=== PATIENT | female | born 1960 | race Caucasian/White ===

== ENCOUNTER 2017-10-07 07:39 | Inpatient (IN) | payer OTHER ==
[2017-10-07] VITALS (17 sets, daily range): BP systolic 117–215; BP diastolic 60–124; PULSE 87–123; RESP 13–33; TEMP 97.8–99.2; O2SAT 92–100
[~2017-10-07] VITALS: Ht 158.8 cm; Wt 61.8 kg
[2017-10-07] MEDS ORDERED: SODIUM CHLOR 0.9% 1000 ML INJ 1,000 ML IV ONE (07:45)
[2017-10-07] MEDS ORDERED: niCARdipine INJ 25 MG in SODIUM CHLOR 0.9% 250 ML INJ 240 ML IV PRN (08:00)
--- NOTE | 2017-10-07 08:02 | RADRPT ---
EXAM DATE/TIME: 10/07/2017 07:51 [facility] COMPARISON: No previous studies available for comparison. INDICATIONS : Stroke alert. Left sided weakness, left sided facial droop. RADIATION DOSE: 29.31 CTDIvol (mGy) This report was called by Dr. Mckinney to Dr. Elliott at 0756 MEDICAL HISTORY : Non-responsive. SURGICAL HISTORY : Non-responsive. ENCOUNTER: Initial ACUITY: 1 day PAIN SCALE: 0/10 LOCATION: cranial TECHNIQUE: Multiple contiguous axial images were obtained of the head. Using automated exposure control and adj ustment of the mA and/or kV according to patient size, radiation dose was kept as low as reasonably a chievable to obtain optimal diagnostic quality images. DICOM format image data is available electro nically for review and comparison. FINDINGS: CEREBRUM: Examination is abnormal. There is a moderate sized right basal ganglia hemorrhage measuring 3.0 x 3.2 cm. There is mass effect on the right lateral ventricle without significant midline shift at this ti me. No intraventricular blood products. No extra-axial fluid collections are seen. POSTERIOR FOSSA: The cerebellum and brainstem are intact. The 4th ventricle is midline. The cerebellopontine angle i s unremarkable. EXTRACRANIAL: The visualized portion of the orbits is intact. SKULL: The calvaria is intact. No evidence of skull fracture. CONCLUSION: 1. Moderate-sized, approximately 3.0 x 3.2 cm, right basal ganglia hemorrhage with mass effect on the right lateral ventricle without herniation at this time. Tacos Bourgeois MD on October 07, 2017 at 7:56 Board Certified Radiologist. This report was verified electronically.
[2017-10-07 08:06] LABS: AUTOMATED NEUTROPHIL # 6.3 TH/MM3 (1.8-7.7); BASOPHIL % 0.5 % (0.0-2.0); EOSINOPHIL # 0.4 TH/MM3 (0-0.4); EOSINOPHIL % 3.8 % (0.0-4.0); HEMATOCRIT 43.5 % (35.0-46.0); HEMO FLAGS DIFF FINAL; I-STAT POTASSIUM 4.2 MMOL/L (3.5-4.9); I-STAT SODIUM 140 MMOL/L (138-146); LYMPH % 28.1 % (9.0-44.0); MEAN CELL VOLUME 89.7 FL (80.0-100.0); MEAN CORPUSCULAR HEMOGLOBIN 30.4 PG (27.0-34.0); MEAN CORPUSCULAR HGB CONC 33.8 % (32.0-36.0); MONO % 8.6 % (0.0-8.0); PLATELET COUNT 280 TH/MM3 (150-450); RED BLOOD COUNT 4.85 MIL/MM3 (4.00-5.30); RED CELL DISTRIBUTION WIDTH 13.9 % (11.6-17.2); WHITE BLOOD COUNT 10.7 TH/MM3 (4.0-11.0)
--- NOTE | 2017-10-07 08:12 | PD ---
HPI Chief Complaint: confusion Time Seen by Provider: 07:45 Travel History International Travel<30 days: No Contact w/Intl Traveler<30days: No History of Present Illness HPI So 57 year-old woman presents to the emergency department, apparently visiting her son upstairs in the hospital, with the abrupt onset of neurologic symptoms. Patient's unable to give much history. Bystanders reported abrupt onset of symptoms just prior to arrival in the emergency department. Patient displays left-sided hemiplegia with him a neglect, as well as shaking and twitching in her right side. She also complains of some headache. History Past Medical History Narrative Medical Frequent UTIs, on prophylactic Keflex Social History Tobacco Use: No Allergies-Medications (Allergen,Severity, Reaction): Coded Allergies: Unable to Assess (Verified Allergy, Unknown, 10/07/17) Review of Systems ROS Limitations: Clinical Condition Physical Exam Narrative GENERAL: 57 year-old woman, appears uncomfortable, anxious. SKIN: Focused skin assessment warm/dry. HEAD: Atraumatic. Normocephalic. EYES: Pupils equal and round. No scleral icterus. No injection or drainage. ENT: No nasal bleeding or discharge. Mucous membranes pink and moist. NECK: Trachea midline. No JVD. CARDIOVASCULAR: Regular rate and rhythm. No murmur appreciated. RESPIRATORY: No accessory muscle use. Clear to auscultation. Breath sounds equal bilaterally. GASTROINTESTINAL: Abdomen soft, non-tender, nondistended. Hepatic and splenic margins not palpable. MUSCULOSKELETAL: No obvious deformities. No clubbing. No cyanosis. No edema. NEUROLOGICAL: Awake and alert. Obvious left-sided facial paralysis. Complete paralysis the left arm, marked paralysis of the left leg. Decreased sensation on the entire left side. Right sided gaze preference with left angie-neglect. PSYCHIATRIC: Anxious. Data Data Last Documented VS Vital Signs Date Time Temp Pulse Resp B/P (MAP) Pulse Ox O2 Delivery O2 Flow Rate FiO2 10/07/17 08:17 90 215/112 10/07/17 08:03 98 21 10/07/17 07:40 18 Room Air 10/07/17 07:40 98.6 Orders Orders Diet Npo (10/07/17 Breakfast) Activity Bed Rest (10/07/17 ) Electrocardiogram (10/07/17 ) I-Stat Creatinine (10/07/17 07:45) I-Stat Profile (10/07/17 07:45) Prothrombin Time / Inr (Pt) (10/07/17 07:45) Act Partial Throm Time (Ptt) (10/07/17 07:45) Complete Blood Count With Diff (10/07/17 07:45) Fibrinogen (10/07/17 07:45) Creatine Kinase (Cpk) (10/07/17 07:45) Troponin I (10/07/17 07:45) Ua Includes Microscopic (10/07/17 07:45) Drug Screen, Random Urine (10/07/17 07:45) Type And Screen (10/07/17 07:45) Ct Brain W/O Iv Contrast(Rout) (10/07/17 ) Beta Hcg (Quant/Titer) (10/07/17 07:45) Consult Neurology (10/07/17 ) Blood Glucose (10/07/17 07:45) Ecg Monitoring (10/07/17 07:45) Neuro Checks Q2HX12,Q4H (10/07/17 07:45) Nursing Bedside Swallow Assess .ONCE (10/07/17 07:45) Iv Access Insert/Monitor (10/07/17 07:45) NPO (10/07/17 07:45) Oximetry (10/07/17 07:45) Oxygen Administration (10/07/17 07:45) Sodium Chlor 0.9% 1000 Ml Inj (Ns 1000 M (10/07/17 07:45) Resp Oxygen Musa C Titrat 1-4 L (10/07/17 07:45) Cath For Specimen (10/07/17 07:45) Nicardipine Inj (Cardene Inj) (10/07/17 08:00) Acetaminophen 1000 Mg/100 Ml (Ofirmev 10 (10/07/17 08:15) Urinary Catheter Insert/Apply (10/07/17 08:06) (Hub Use Only)Inp Phy Cons/Ref (10/07/17 08:11) Ondansetron Inj (Zofran Inj) (10/07/17 08:15) Admit To Inpatient (10/07/17 ) Code Status (10/07/17 08:42) Vital Signs (Adult) EROS.Q1H (10/07/17 08:42) Activity Bed Rest (10/07/17 08:42) Elevate Head Of Bed (10/07/17 08:42) Ns + Kcl 20 Meq Inj (Ns + Kcl 20 Meq Inj (10/07/17 08:42) Sodium Chloride 0.9% Flush (Ns Flush) (10/07/17 08:45) Sodium Chloride 0.9% Flush (Ns Flush) (10/07/17 09:00) Pantoprazole Inj (Protonix Inj) (10/07/17 09:00) Albuterol-Ipratropium Neb (Duoneb Neb) (10/07/17 08:45) Complete Blood Count With Diff (10/08/17 04:00) Comprehensive Metabolic Panel (10/08/17 04:00) [employer] / Telemetry EROS.Q8H (10/07/17 08:42) Scd Bilateral/Knee High EROS.BID (10/07/17 08:42) Naif Bilateral/Knee High EROS.QSHIFT (10/07/17 10:00) ^ Initiate Protocol (10/07/17 08:42) Instruction (10/07/17 08:42) Notify Md To Reorder (10/07/17 08:45) Chlorhexidine 2% Cloth (Chlorhexidine 2% (10/08/17 04:00) Chlorhexidine 2% Cloth (Chlorhexidine 2% (10/07/17 08:45) Mrsa Pcr Surveillance (10/07/17 08:42) Docusate Sodium-Senna (Sangita-Colace) (10/07/17 09:00) Magnesium Hydroxide Liq (Milk Of Magnesi (10/07/17 08:45) Sennosides (Senokot) (10/07/17 08:45) Bisacodyl Supp (Dulcolax Supp) (10/07/17 08:45) Lactulose Liq (Lactulose Liq) (10/07/17 08:45) Inpatient Certification (10/07/17 ) Admit Order (Ed Use Only) (10/07/17 ) Consult Neurosurgery (10/07/17 ) Labs Laboratory Tests Test 10/07/17 07:45 10/07/17 08:20 White Blood Count 10.7 TH/MM3 Red Blood Count 4.85 MIL/MM3 Hemoglobin 14.7 GM/DL Bedside Hemoglobin 15.3 G/DL Hematocrit 43.5 % Bedside Hematocrit 45.0 % Mean Corpuscular Volume 89.7 FL Mean Corpuscular Hemoglobin 30.4 PG Mean Corpuscular Hemoglobin Concent 33.8 % Red Cell Distribution Width 13.9 % Platelet Count 280 TH/MM3 Mean Platelet Volume 9.3 FL Neutrophils (%) (Auto) 59.0 % Lymphocytes (%) (Auto) 28.1 % Monocytes (%) (Auto) 8.6 % Eosinophils (%) (Auto) 3.8 % Basophils (%) (Auto) 0.5 % Neutrophils # (Auto) 6.3 TH/MM3 Lymphocytes # (Auto) 3.0 TH/MM3 Monocytes # (Auto) 0.9 TH/MM3 Eosinophils # (Auto) 0.4 TH/MM3 Basophils # (Auto) 0.0 TH/MM3 CBC Comment DIFF FINAL Differential Comment Prothrombin Time 10.3 SEC Prothromb Time International Ratio 0.9 RATIO Activated Partial Thromboplast Time 22.8 SEC Fibrinogen 295 mg/dL Bedside Sodium 140 MMOL/L Bedside Potassium 4.2 MMOL/L Bedside Chloride 102 MMOL/L Bedside Blood Urea Nitrogen 19 MG/DL Bedside Creatinine 0.9 MG/DL Bedside Glucose 140 MG/DL Total Creatine Kinase 115 U/L Troponin I LESS THAN 0.02 NG/ML Human Chorionic Gonadotropin, Quant 2 MIU/ML Urine Color COLORLESS Urine Turbidity HAZY Urine pH 8.5 Urine Specific [place] 1.009 Urine Protein NEG mg/dL Urine Glucose (UA) NEG mg/dL Urine Ketones NEG mg/dL Urine Occult Blood NEG Urine Nitrite NEG Urine Bilirubin NEG Urine Urobilinogen LESS THAN 2.0 MG/DL Urine Leukocyte Esterase NEG Urine RBC 2 /hpf Urine WBC 1 /hpf Urine Squamous Epithelial Cells 1 /hpf Urine Amorphous Sediment OCC Urine Mucus FEW /lpf MDM Medical Decision Making Medical Screen Exam Complete: Yes Emergency Medical Condition: Yes Interpretation(s) Review of head CT images: Interpretable bleed in the right basal ganglia Personally interpreted the EKG: Normal sinus rhythm at a rate of 88, normal axis , normal intervals, no acute ischemia. Probable left ventricular hypertrophy. Point of care chemistries: Creatinine 0.9 Chemistries unremarkable Differential Diagnosis stroke, bleed, seizure, mass, other Narrative Course Medical decision-making 49-year-old presents emergency Department abrupt onset altered mental status of left-sided hemiplegia. Stroke alert was called. CT scan confirms intraparenchymal bleed. Blood pressure is elevated will start on nicardipine. Patient will be admitted to the ICU. I spoke with the patient's son, yo polk, in room 9 on the sixth floor. Reviewed the findings. NIH stroke scale 16@0750 Critical Care Narrative Aggregate critical care time was 35 minutes. Time to perform other separately billable procedures was not included in the critical care time. My time did not include minutes spent treating any other patients simultaneously or on activities that did not directly contribute to the patient's treatment. The services I provided to this patient were to treat and/or prevent clinically significant deterioration that could result in: Unrecognized Bleed, increased permanent disability, . I provided critical care services requiring my management, as noted below: Chart data review, documentation time, medication orders and management, vital sign assessments/reviewing monitor data, ordering and reviewing lab tests, ordering and interpreting/reviewing x-rays and diagnostic studies, care of the patient and discussion of the patient with the admitting physicians. Physician Communication Physician Communication Spoke with Dr. King, with neurology. Reviewed CT findings. He will consult on patient. Agrees of blood pressure management with nicardipine. Spoke with Dr. Fitzgerald, with neurosurgery, will consult on patient. Diagnosis Primary Impression: Intracerebral hemorrhage, nontraumatic Admitting Information Admitting Physician Requests: Admit Vic Sweeney MD Oct 07, 2017 08:12
[2017-10-07 08:15] LABS: APTT (PATIENT) 22.8 SEC (24.3-30.1); INTERNATIONAL NORMALIZED RATIO 0.9 RATIO; PROTHROMBIN TIME - PATIENT 10.3 SEC (9.8-11.6)
[2017-10-07] MEDS ORDERED: ACETAMINOPHEN 1000 MG/100 ML 100 ML IV ONE (08:15)
[2017-10-07] MEDS ORDERED: ONDANSETRON HCL 4 MG/2 ML VIAL IV PUSH ONE (08:15)
[2017-10-07 08:38] LABS: BETA HCG QUANT 2 MIU/ML (0-5); CREATINE KINASE 115 U/L (26-192)
[2017-10-07 08:43] LABS: BLOOD, URINE NEG (NEG); GLUCOSE,URINE NEG (NEG); KETONE, URINE NEG (NEG); MUCUS URINE FEW /lpf (OCC); NITRITE,URINE NEG (NEG); PH, URINE 8.5 (5.0-8.5); SQUAMOUS EPITHELIAL CELL URINE 1 /hpf (0-5); URINE COLOR COLORLESS (YELLW/STRAW)
[2017-10-07] MEDS ORDERED: MISCELLANEOUS NURSING INFORMATION XX SCH (08:45)
[2017-10-07] MEDS ORDERED: RESP: ALBUTEROL 2.5 MG/IPRATROPIUM 0.5 MG NEB (PRN) INH (08:45)
[2017-10-07] MEDS ORDERED: SODIUM CHLORIDE 0.9% FLUSH 10 ML FLUSH IV FLUSH PRN (08:45)
[2017-10-07] MEDS ORDERED: BISACODYL 10 MG SUPP RECTAL PRN (08:45)
[2017-10-07] MEDS ORDERED: CHLORHEXIDINE GLUCONATE 2 % 1 PACK (2 CLOTHS) TOP PRN (08:45)
[2017-10-07] MEDS ORDERED: SENNOSIDES 8.6 MG TAB PO PRN (08:45)
[2017-10-07] MEDS ORDERED: POTASSIUM PHOSPHATE INJ 30 MMOL in SODIUM CHLOR 0.9% 250 ML INJ 250 ML IV PRN (09:00)
[2017-10-07] MEDS ORDERED: MAGNESIUM OXIDE 400 MG TAB PO PRN (09:00)
[2017-10-07] MEDS ORDERED: POTASSIUM CHLORIDE 25 MEQ EFFERVESCENT TAB PO PRN (09:00)
[2017-10-07] MEDS ORDERED: SODIUM PHOSPHATE INJ 30 MMOL in SODIUM CHLOR 0.9% 250 ML INJ 240 ML IV PRN (09:00)
[2017-10-07] MEDS ORDERED: POTASSIUM CHLOR 40 MEQ PREMIX 100 ML IV PRN ×2 (09:00)
[2017-10-07] MEDS ORDERED: POTASSIUM PHOSPHATE MONOBASIC 500 MG TAB PO PRN (09:00)
[2017-10-07] MEDS ORDERED: POTASSIUM PHOSPHATE MONOBASIC 500 MG TAB PO/TUBE PRN (09:00)
[2017-10-07] MEDS ORDERED: POTASSIUM CHLOR 20 MEQ PREMIX 100 ML IV PRN ×2 (09:00)
[2017-10-07] MEDS ORDERED: MAGNESIUM SULFATE INJ 4 GM in SODIUM CHLORIDE 0.9% INJ 92 ML IV PRN (09:00)
[2017-10-07] MEDS ORDERED: MAGNESIUM SULFATE INJ 2 GM in SODIUM CHLORIDE 0.9% INJ 96 ML IV PRN (09:00)
--- NOTE | 2017-10-07 10:00 | HHI.HP ---
HPI Service Critical Care Medicine Primary Care Physician Unknown Admission Diagnosis intracerebral hemorrhage Diagnosis: (1) Right basal ganglia hemorrhage Diagnosis: Principal (2) Hypertensive emergency Diagnosis: Principal (3) Left hemiplegia Diagnosis: Principal Chief Complaint: Right basal ganglia hemorrhage with left hemiplegia Travel History International Travel<30 Days: No Contact w/Intl Traveler <30 Da: No Traveled to Known Affected Are: No History of Present Illness Patient is a 57-year-old female with past medical history significant for hypertension currently off medication, recurrent UTI on Keflex for prophylaxis. She was visiting her son who is admitted in the hospital and had abrupt onset of headache with left-sided hemiplegia. A stroke alert was initiated and patient was moved to the emergency department. A stat CT of the head showed moderate-sized, approximately 3.0 x 3.2 cm, right basal ganglia hemorrhage with mass effect on the right lateral ventricle. Blood work was unremarkable and coags were negative. Initial blood pressure was 190-200 systolic and patient was started on Cardene infusion. Dr. King neurology and Dr. Fitzgerald neurosurgery had been contacted and consulted by ED I evaluated the patient in the emergency department. Patient appears anxious but able to talk normally she has flaccid paralysis of the left side of body with left hemisensory loss. CT of the head was personally reviewed. Titrate Cardene to keep systolic blood pressure less than 150 and also add when necessary labetalol. Ativan when necessary for twitching of the lower extremity. I doubt any surgical intervention is warranted at this time. CTA of brain to rule aneurysm Review of Systems ROS Limitations: Clinical Condition Past Family Social History Allergies: Coded Allergies: Unable to Assess (Verified Allergy, Unknown, 10/07/17) Past Medical History History of frequent UTI Hypertension previously on medication, cannot tell me when she went off the medication Past Surgical History Bladder surgery when she was a child Reported Medications Keflex for UTI prophylaxis Active Ordered Medications Cardene infusion Family History Unable to obtain due to clinical condition Social History No tobacco use Physical Exam Vital Signs Vital Signs Date Time Temp Pulse Resp B/P (MAP) Pulse Ox O2 Delivery O2 Flow Rate FiO2 10/07/17 09:48 10/07/17 09:00 108 18 142/76 (98) 100 Room Air 10/07/17 08:45 110 18 163/87 (112) 100 Room Air 10/07/17 08:30 100 18 167/84 (111) 100 Room Air 10/07/17 08:17 90 215/112 10/07/17 08:15 100 18 215/112 (146) 100 Room Air 10/07/17 08:03 98 21 10/07/17 08:00 92 18 201/96 (131) 100 Room Air 10/07/17 07:40 105 18 188/124 (145) 100 Room Air 10/07/17 07:40 105 18 100 Room Air 10/07/17 07:40 100 Room Air 10/07/17 07:40 98.6 105 18 188/124 (145) 100 10/07/17 07:40 100 Room Air Physical Exam GENERAL: 57 year-old woman, lying in the ER gurney anxious SKIN: Warm/dry. HEAD: Atraumatic. Normocephalic. EYES: Pupils equal and round. No scleral icterus. No injection or drainage. ENT: No nasal bleeding or discharge. Mucous membranes pink and moist. Mild Left facial droop NECK: Trachea midline. No JVD. CARDIOVASCULAR: Regular rate and rhythm. Grade 2 systolic murmur heard in the apex and lower left sternal border RESPIRATORY: No accessory muscle use. Clear to auscultation. Breath sounds equal bilaterally. GASTROINTESTINAL: Abdomen soft, non-tender, nondistended. Hepatic and splenic margins not palpable. Well-healed midline scar in the lower abdomen MUSCULOSKELETAL: No obvious deformities. No clubbing. No cyanosis. No edema. NEUROLOGICAL: Awake and alert, normal speech. Left facial droop. Flaccid paralysis of left upper and lower extremity. Loss of sensation entire left side. Right sided gaze preference with left angie-neglect. Laboratory Laboratory Tests Test 10/07/17 07:45 10/07/17 08:20 White Blood Count 10.7 Red Blood Count 4.85 Hemoglobin 14.7 Bedside Hemoglobin 15.3 Hematocrit 43.5 Bedside Hematocrit 45.0 Mean Corpuscular Volume 89.7 Mean Corpuscular Hemoglobin 30.4 Mean Corpuscular Hemoglobin Concent 33.8 Red Cell Distribution Width 13.9 Platelet Count 280 Mean Platelet Volume 9.3 Neutrophils (%) (Auto) 59.0 Lymphocytes (%) (Auto) 28.1 Monocytes (%) (Auto) 8.6 Eosinophils (%) (Auto) 3.8 Basophils (%) (Auto) 0.5 Neutrophils # (Auto) 6.3 Lymphocytes # (Auto) 3.0 Monocytes # (Auto) 0.9 Eosinophils # (Auto) 0.4 Basophils # (Auto) 0.0 CBC Comment DIFF FINAL Differential Comment Prothrombin Time 10.3 Prothromb Time International Ratio 0.9 Activated Partial Thromboplast Time 22.8 Fibrinogen 295 Bedside Sodium 140 Bedside Potassium 4.2 Bedside Chloride 102 Bedside Blood Urea Nitrogen 19 Bedside Creatinine 0.9 Bedside Glucose 140 Total Creatine Kinase 115 Troponin I LESS THAN 0.02 Human Chorionic Gonadotropin, Quant 2 Urine Color COLORLESS Urine Turbidity HAZY Urine pH 8.5 Urine Specific [place] 1.009 Urine Protein NEG Urine Glucose (UA) NEG Urine Ketones NEG Urine Occult Blood NEG Urine Nitrite NEG Urine Bilirubin NEG Urine Urobilinogen LESS THAN 2.0 Urine Leukocyte Esterase NEG Urine RBC 2 Urine WBC 1 Urine Squamous Epithelial Cells 1 Urine Amorphous Sediment OCC Urine Mucus FEW Urine Opiates Screen NEG Urine Barbiturates Screen NEG Urine Amphetamines Screen NEG Urine Benzodiazepines Screen NEG Urine Cocaine Screen NEG Urine Cannabinoids Screen NEG Result Diagram: 10/07/[address] of the head: Moderate-sized, approximately 3.0 x 3.2 cm, right basal ganglia hemorrhage with mass effect on the right lateral ventricle Caprini VTE Risk Assessment Caprini VTE Risk Assessment: Mod/High Risk (score >= 2) VTE Pharm Contraindication: Hemorrhage Caprini Risk Assessment Model Point Value = 1 Point Value = 2 Point Value = 3 Point Value = 5 Age 41-60 Minor surgery BMI > 25 kg/m2 Swollen legs Varicose veins or History of unexplained or recurrent spontaneous Oral contraceptives or hormone replacement Sepsis (< 1 month) Serious lung disease, including pneumonia (< 1 month) Abnormal pulmonary function Acute myocardial infarction Congestive heart failure (< 1 month) History of inflammatory bowel disease Medical patient at bed rest Age 61-74 Arthroscopic surgery Major open surgery (> 45 min) Laparoscopic surgery (> 45 min) Malignancy Confined to bed (> 72 hours) Immobilizing plaster cast Central venous access Age >= 75 History of VTE Family history of VTE Factor V Leiden Prothrombin [id number] Lupus anticoagulant Anticardiolipin antibodies Elevated serum homocysteine Heparin-induced thrombocytopenia Other congenital or acquired thrombophilia Stroke (< 1 month) Elective arthroplasty Hip, pelvis, or leg fracture Acute spinal cord injury (< 1 month) Prophylaxis Regimen Total Risk Factor Score Risk Level Prophylaxis Regimen 0-1 Low Early ambulation 2 Moderate Order ONE of the following: *Sequential Compression Device (SCD) *Heparin 5000 units SQ BID 3-4 Higher Order ONE of the following medications: *Heparin 5000 units SQ TID *Enoxaparin/Lovenox 40 mg SQ daily (WT < 150 kg, CrCl > 30 mL/min) *Enoxaparin/Lovenox 30 mg SQ daily (WT < 150 kg, CrCl > 10-29 mL/min) *Enoxaparin/Lovenox 30 mg SQ BID (WT < 150 kg, CrCl > 30 mL/min) AND/OR *Sequential Compression Device (SCD) 5 or more Highest Order ONE of the following medications: *Heparin 5000 units SQ TID (Preferred with Epidurals) *Enoxaparin/Lovenox 40 mg SQ daily (WT < 150 kg, CrCl > 30 mL/min) *Enoxaparin/Lovenox 30 mg SQ daily (WT < 150 kg, CrCl > 10-29 mL/min) *Enoxaparin/Lovenox 30 mg SQ BID (WT < 150 kg, CrCl > 30 mL/min) AND *Sequential Compression Device (SCD) Assessment and Plan Assessment and Plan PLAN: NEURO: Moderate-sized, right basal ganglia hemorrhage 3.0 x 3.2 cm Left hemiplegia - CT of the head: moderate sixed right BG hemorrhage with mass effect on right lateral ventricle - Neurosurgery consulted Dr. Fitzgerald - Most likely conservative management at this time, unless there is an expansion of the bleed - Keep Na >145 - CTA of the head and neck - No EVD at this time - PT/OT/Speech when appropriate RESP: - DuoNeb every 6 hours when necessary - Aggressive pulmonary toilet CV: Hypertensive emergency History of hypertension Cardiac murmur - Cardene infusion to target systolic blood pressure less than 150 - IV labetalol 20 mg every 6 hours when necessary for SBP more than 160 - Normal saline 125 ml per hour - 2 D Echo to evaluate cardiac murmur GI: - IV Protonix 40 mg daily - Nothing by mouth - Speech evaluation : - Monitor renal function closely. Chen catheter. ID: History of recurrent UTI - No antibiotics at this time monitor for infection HEME: - Monitor CBC, CMP, coags ENDO: - Sliding-scale insulin - Electrolyte replacement per protocol PROPH: - Bilateral lower extremity SCDs/ESTIVEN. IV Protonix 40 mg daily. LINES: - Utilize peripheral IVs, central line if needed CCT 42 MIN Code Status Full Discussed Condition With Shine Marrero MD Oct 07, 2017 10:00
[2017-10-07] MEDS: LORazepam 2 MG/ML VIAL IV PUSH PRN (10:30)
[2017-10-07] MEDS: PANTOPRAZOLE SODIUM 40 MG VIAL IV PUSH SCH (10:30)
[2017-10-07 11:31] LABS: MAGNESIUM 2.2 MG/DL (1.5-2.5)
--- NOTE | 2017-10-07 12:55 | MB ---
cc: ELIDA MOHAMUD M.D. DATE OF CONSULTATION 10/07/2017 REASON FOR CONSULTATION Stroke alert HISTORY OF PRESENT ILLNESS Ms. Piper is a 57-year-old woman visiting her son in the hospital who had sudden onset of left-sided weakness. She had shaking on the right side as well and tremulousness, but no episodes seizure activity. A stroke alert was called. I discussed the case with Dr. Baez in the emergency room. CT scan of the brain revealed a cerebral hemorrhage in the right basal ganglia area. She was hypertensive in the ER and since then her blood pressure has been controlled. Her initial blood pressure in the ER 215/112. PAST MEDICAL HISTORY 1. History of previous UTI. 2. Hypertension, previously treated, but has been off antihypertensives. MEDICATIONS Current medications are: 1. Chlorhexidine 2. Ativan p.r.n. 3. Protonix 40 mg IV daily 4. Potassium chloride 5. Magnesium sulfate 6. Nicardipine NEUROLOGIC EXAMINATION Blood pressure currently 117/62, pulse 92 regular, respirations 18, temperature 98 degrees. Higher cortical function, the patient is lethargic, but easy to arouse. Speech is dysarthric. She follows commands. Cranial nerves: She has a right gaze preference and has difficulty moving eyes past midline to the left. Pupils are 2 mm symmetric and reactive. There is some moderate left upper motor neuron VII palsy. On motor exam, she has 0/5 strength left arm and left leg with 5/5 strength right arm and right leg. Reflexes are 1+ symmetric. CT of the brain shows a 3 x 3.2 cm right basal ganglia hemorrhage with mass effect right lateral ventricle, but no herniation. LABORATORY DATA White count 10,700, hemoglobin 14.7, hematocrit 43.5% platelet count 280,000, PT 10.3, INR 0.9, APTT 22.8, fibrinogen 295. Sodium is 140, potassium 4.2, chloride 102, BUN is 19, creatinine 0.9, glucose is 140, troponin less than 0.02, CPK 115, beta hCG 2. Tox screen negative. Urinalysis pH 8.5, specific gravity 1.009. IMPRESSION Right basal ganglia hemorrhage, suspect hypertensive hemorrhage. RECOMMENDATIONS Blood pressure controlled on nicardipine. Further evaluation CT angiogram to rule out underlying vascular malformation. Repeat CT of the brain tomorrow to follow up on the hemorrhage. Once stable would recommend MRI scanning as well. MD EDEL Alvaerz/MILO /12:05 PM /12:45 PM
[2017-10-07] MEDS ORDERED: IOHEXOL 350 MG/ML 10 ML VIAL (for RAD DIAG) IVCONTRAST ONE (13:10)
--- NOTE | 2017-10-07 13:45 | RADRPT ---
EXAM DATE/TIME: 10/07/2017 12:57 [facility] COMPARISON: No previous studies available for comparison. INDICATIONS : Intercranial bleed today with left sided weakness, anuerysm. IV CONTRAST: 75 cc Omnipaque 350 (iohexol) IV RADIATION DOSE: 13.01 CTDIvol (mGy) MEDICAL HISTORY : None SURGICAL HISTORY : None. ENCOUNTER: Initial ACUITY: 1 day PAIN SCALE: 7/10 LOCATION: Left cranial TECHNIQUE: Volumetric scanning was performed using a multi-row detector CT scanner. The data was post processed with a variety of visualization algorithms including full volume maximum intensity projection, multi -planar sliding thin slab reformation, curved planar reformation, and surface rendering techniques. Using automated exposure control and adjustment of the mA and/or kV according to patient size, radiat ion dose was kept as low as reasonably achievable to obtain optimal diagnostic quality images. DICO M format image data is available electronically for review and comparison. FINDINGS: There is a known intraparenchymal hemorrhage in the right medial temporal lobe. There is excellent visualization of the major intracranial arteries out to the second-order branch ve ssels. There is no evidence for aneurysm, vessel truncation or stenosis, and no evidence for vascula r malformation. There is a right posterior communicating artery contributing the majority of the flow to the right po sterior cerebral circulation. Short segment narrowing involving the right A1 segment but there is a p atent anterior communicating artery feeding both of the intracerebral vessels CONCLUSION: Somewhat unusual anatomy involving the right internal carotid bifurcation. Focal stenosis of the artemio gin of the right anterior cerebral artery origin. No evidence of aneurysm or etiology for subarachnoi d hemorrhage is seen. Vic Serna MD on October 07, 2017 at 13:41 Board Certified Radiologist. This report was verified electronically.
[2017-10-07] MEDS: niCARdipine INJ 25 MG in SODIUM CHLOR 0.9% 250 ML INJ 240 ML IV PRN (14:00)
[2017-10-07] MEDS: NS + KCL 20 MEQ INJ 1,000 ML IV SCH (14:00)
--- NOTE | 2017-10-07 14:07 | RADRPT ---
EXAM DATE/TIME: 10/07/2017 12:57 [facility] COMPARISON: No previous studies available for comparison. INDICATIONS : Intercranial bleed today with left sided weakness; evaluate for aneurysm. IV CONTRAST: 75 cc Omnipaque 350 (iohexol) IV ; Cumulative dose for multiple exams. RADIATION DOSE: 13.01 CTDIvol (mGy) ; Combined studies MEDICAL HISTORY : None SURGICAL HISTORY : None. ENCOUNTER: Initial ACUITY: 1 day PAIN SCALE: 7/10 LOCATION: Bilateral cranial Elevated flow velocities and ICA/CCA ratios have been found to correlate with increased degrees of vessel stenosis, calculated as percentage of diameter relative to a normal segment of distal ICA/CCA. TECHNIQUE: Volumetric scanning was performed using a multirow detector CT scanner. The data was post processed with a variety of visualization algorithms including full-volume maximum intensity projection, multip lanar sliding thin-slab reformation, curved-planar reformation, and surface-rendering techniques. Us ing automated exposure control and adjustment of the mA and/or kV according to patient size, radiatio n dose was kept as low as reasonably achievable to obtain optimal diagnostic quality images. DICOM f ormat image data is available electronically for review and comparison. FINDINGS: AORTIC ARCH: There is a two-vessel origin of the great vessels from the aorta. No evidence of ostial narrowing. RIGHT CAROTID: The common carotid artery is intact. The carotid bulb has a normal configuration without ulceration o r narrowing. The internal carotid artery lumen is smooth without stenosis. The external carotid sarah ry is intact. LEFT CAROTID: The common carotid artery is intact. The carotid bulb has a normal configuration without ulceration or narrowing. The internal carotid artery lumen is smooth without stenosis. The external carotid ar ed is intact. VERTEBRALS: The vertebral arteries have a symmetric diameter. No stenotic lesions are seen. CONCLUSION: Normal examination. Bovine origin of the great vessels. Vic Serna MD on October 07, 2017 at 14:04 Board Certified Radiologist. This report was verified electronically.
--- NOTE | 2017-10-07 17:43 | MB ---
cc: JENN LYONS DATE OF CONSULTATION 10/07/17 REASON FOR CONSULTATION Right basal ganglia hemorrhage. HISTORY OF PRESENT ILLNESS This is a 57-year-old female who was visiting her son in the hospital when she had an abrupt onset of left-sided hemiplegia and neglect and reportedly some twitching and shaking in the right side, but these were not related as seizures. She has a dysarthric and slurred speech and confusion along with complaints of headache. She was taken to the emergency room where she was very hypertensive with an initial blood pressure of 215/112 at one point. Her hypertension was regulated and CT scan of the head obtained that reveals a 3.2 cm right basal ganglia hemorrhage. The ventricles are small and not dilated and there is no intraventricular hemorrhage noted. She was admitted to the surgical intensive care unit for hemodynamic and neurologic monitoring. Subsequent CT angiogram of the brain as well as the carotids has also been obtained and no underlying aneurysm or vascular abnormality is noted with some areas of focal stenosis in the right anterior cerebral artery. The patient is lethargic and has also received some Ativan for shivers and shakes but is easily arousable. A detailed history is difficult to obtain from her. PAST MEDICAL HISTORY 1. Bladder surgery, 2. Recurrent UTIs, 3. Hypertension. ALLERGIES Unknown MEDICATIONS Keflex SOCIAL HISTORY Reportedly resides in [place] and does not smoke and does drink alcohol, although if this social or a regular drinker. REVIEW OF SYSTEMS Complains of a headache. Complains of left-sided numbness, inability to move, slurred speech. Difficult to obtain a comprehensive review of systems given the patient's lethargic state and dysarthric speech but pertinent positives as mentioned. FAMILY HISTORY Unremarkable. LABORATORY FINDINGS White blood cell count 10.7, hemoglobin 15.3, platelet count 280, PT 10.3, INR 0.9, PTT 22.8. Sodium 140, potassium 4.2, BUN 19, creatinine 0.9, glucose 140, troponin less than 0.02. Toxicology screen is negative. Urinalysis is negative. PHYSICAL EXAMINATION VITAL SIGNS: Temperature 98.6, pulse is 100, respiratory rate 18, blood pressure 167/84 on a Cardene drip, oxygen saturation 98% on room air. HEENT: Head - Normocephalic, atraumatic with negative Sanford's and raccoon sign. Eyes: Nonicteric and no subconjunctival hemorrhage, initially has a right gaze preference but this has resolved. NECK: Supple with no guarding or rigidity CHEST: Clear to auscultation bilaterally HEART: Mild tachycardia, normal S1-S2. No murmurs. ABDOMEN: Soft, nontender. Positive bowel sounds. No hepatosplenomegaly. EXTREMITIES: No deformity. SKIN: No rash or abrasions. NEUROLOGIC: She is lethargic but easily arousable, will state her name. She knows she is at [facility]. Pupils are equal, reactive. Extraocular muscles are intact. She was able to cross the midline and look to the left side. She has some left profound facial droop. Tongue is midline. She moves the right upper and right lower extremity spontaneously and relatively good strength. She is hemiplegic with inability to move the left arm or leg. She does have a positive Babinski on the left side. Speech is very dysarthric and slurred. IMPRESSION 1. 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 2. Unregulated hypertension 3. Recurrent urinary tract infection on prophylactic antibiotic therapy. PLAN The patient will be monitored closely in the surgical intensive care unit with q. one neuro checks and vitals. Her head of bed will be kept elevated at 30 degrees. Mechanical DVT prophylaxis as chemical DVT prophylaxis is contraindicated given the cerebral hemorrhage. Gastrointestinal stress ulcer prophylaxis. Once her hypertension is well regulated then we will increase her activity status with physical therapy, occupational therapy and speech therapy involvement. The followup CT scan of the head will be obtained tomorrow morning to rule out any progression of this cerebral hemorrhage. Condition obviously is critical. MD KRISTIE Gray/ /4:08 PM /5:35 PM
[2017-10-07] MEDS: SODIUM CHLORIDE 0.9% FLUSH 10 ML FLUSH IV FLUSH SCH (20:58)
[2017-10-07] MEDS: DOCUSATE SODIUM 50 MG/SENNA 8.6 MG TAB PO SCH (21:00)
[2017-10-07] MEDS: ONDANSETRON HCL 4 MG/2 ML VIAL IV PUSH PRN (21:15)
[2017-10-07] MEDS: CHLORHEXIDINE GLUCONATE 2 % 1 PACK (2 CLOTHS) TOP SCH (23:27)
[2017-10-08] VITALS (12 sets, daily range): BP systolic 127–168; BP diastolic 64–84; PULSE 84–124; RESP 11–24; TEMP 98.3–99; O2SAT 95–100
[2017-10-08] MEDS: NS + KCL 20 MEQ INJ 1,000 ML IV SCH ×3 (00:17→12:54)
[2017-10-08] MEDS: niCARdipine INJ 25 MG in SODIUM CHLOR 0.9% 250 ML INJ 240 ML IV PRN ×3 (00:17→12:53)
[2017-10-08] MEDS: ONDANSETRON HCL 4 MG/2 ML VIAL IV PUSH PRN ×3 (04:15→21:08)
--- NOTE | 2017-10-08 05:02 | RADRPT ---
EXAM DATE/TIME: 10/08/2017 04:04 [facility] COMPARISON: CT BRAIN W/O CONTRAST, October 07, 2017, 7:51. INDICATIONS : Follow up intracerebral hemorrhage. RADIATION DOSE: 31.64 CTDIvol (mGy) MEDICAL HISTORY : Non-responsive. SURGICAL HISTORY : Non-responsive. ENCOUNTER: Subsequent ACUITY: 1 day PAIN SCALE: Non-responsive LOCATION: cranial TECHNIQUE: Multiple contiguous axial images were obtained of the head. Using automated exposure control and adj ustment of the mA and/or kV according to patient size, radiation dose was kept as low as reasonably a chievable to obtain optimal diagnostic quality images. DICOM format image data is available electro nically for review and comparison. FINDINGS: CEREBRUM: The ventricles are normal for age. No evidence of midline shift, mass lesion, or acute infarction. No extra-axial fluid collections are seen. The high density acute hemorrhage in the right basal gangl ia is not significantly changed. There is mild mass effect on the right lateral ventricle again noted with no significant midline shift. POSTERIOR FOSSA: The cerebellum and brainstem are intact. The 4th ventricle is midline. The cerebellopontine angle i s unremarkable. EXTRACRANIAL: The visualized portion of the orbits is intact. SKULL: The calvaria is intact. No evidence of skull fracture. CONCLUSION: No significant change. Matthew Hutchison MD on October 08, 2017 at 4:58 Board Certified Radiologist. This report was verified electronically.
[2017-10-08 05:31] LABS: AUTOMATED NEUTROPHIL # 9.1 TH/MM3 (1.8-7.7); BASOPHIL % 0.2 % (0.0-2.0); EOSINOPHIL % 0.3 % (0.0-4.0); HEMATOCRIT 43.5 % (35.0-46.0); HEMO FLAGS DIFF FINAL; LYMPH % 10.1 % (9.0-44.0); LYMPHOCYTE # 1.1 TH/MM3 (1.0-4.8); MEAN CELL VOLUME 91.3 FL (80.0-100.0); MEAN CORPUSCULAR HEMOGLOBIN 30.2 PG (27.0-34.0); MEAN CORPUSCULAR HGB CONC 33.1 % (32.0-36.0); MONO % 6.3 % (0.0-8.0); NEUT % 83.1 % (16.0-70.0); PLATELET COUNT 214 TH/MM3 (150-450); RED BLOOD COUNT 4.77 MIL/MM3 (4.00-5.30); RED CELL DISTRIBUTION WIDTH 14.3 % (11.6-17.2); WHITE BLOOD COUNT 10.9 TH/MM3 (4.0-11.0)
[2017-10-08 05:46] LABS: ANION GAP 8 MEQ/L (5-15); AST (GOT) 21 U/L (15-37); BICARBONATE 22.6 MEQ/L (21.0-32.0); BLOOD UREA NITROGEN 11 MG/DL (7-18); CHLORIDE 107 MEQ/L (98-107); GLOMERULAR FILTRATION RATE 71 ML/MIN (>89); POTASSIUM 3.8 MEQ/L (3.5-5.1); SODIUM (NA) 138 MEQ/L (136-145)
[2017-10-08 05:48] LABS: ALT (GPT) 21 U/L (10-53)
[2017-10-08 05:50] LABS: ALKALINE PHOSPHATASE 64 U/L (45-117); TOTAL BILIRUBIN ADULT 0.6 MG/DL (0.2-1.0)
[2017-10-08] MEDS: SODIUM CHLORIDE 0.9% FLUSH 10 ML FLUSH IV FLUSH SCH ×2 (08:23→21:01)
[2017-10-08] MEDS: PANTOPRAZOLE SODIUM 40 MG VIAL IV PUSH SCH (08:23)
[2017-10-08] MEDS: DOCUSATE SODIUM 50 MG/SENNA 8.6 MG TAB PO SCH ×2 (08:53→21:01)
--- NOTE | 2017-10-08 10:45 | HHI.NSPN ---
(Raman Ferrell) History Chief Complaint: Fronal headaches, ICH. (Raman Ferrell) Interval History This is a 57-year-old female who was visiting her son in the hospital when she had an abrupt onset of left-sided hemiplegia and neglect and reportedly some twitching and shaking in the right side, but these were not related as seizures. She has a dysarthric and slurred speech and confusion along with complaints of headache. She was taken to the emergency room where she was very hypertensive with an initial blood pressure of 215/112 at one point. Her hypertension was regulated and CT scan of the head obtained that reveals a 3.2 cm right basal ganglia hemorrhage. The ventricles are small and not dilated and there is no intraventricular hemorrhage noted. She was admitted to the surgical intensive care unit for hemodynamic and neurologic monitoring. Subsequent CT angiogram of the brain as well as the carotids has also been obtained and no underlying aneurysm or vascular abnormality is noted with some areas of focal stenosis in the right anterior cerebral artery. The patient is lethargic and has also received some Ativan for shivers and shakes but is easily arousable. A detailed history is difficult to obtain from her. 10/08/17: Awake and alert. Complains of frontal headaches. Nausea but no vomiting today. Left hemiparesis pt states improved some. (Raman Ferrell) Review of Systems General: Negative for: fever, chills, insomnia Respiratory: Negative for: shortness of breath, cough, sputum Cardiovascular: Negative for: chest pain Gastrointestinal: Positive for: nausea, Negative for: vomitting, diarrhea, constipation (Raman Ferrell) Exam Results Vital Signs Date Time Temp Pulse Resp B/P (MAP) Pulse Ox O2 Delivery O2 Flow Rate FiO2 10/08/17 08:37 127 146/72 10/08/17 04:00 99.0 11 96 10/07/17 20:36 21 10/07/17 19:00 Room Air Intake and Output 10/08/17 10/08/17 10/09/17 08:00 16:00 00:00 Intake Total 1000 ml Output Total 1200 ml Balance -200 ml (Raman Ferrell) Physical Examination General: Pt resting comfortably in bed in NAD. Eyes: Pupils equal. Sclera anicteric. Resp: CTA bilaterally Heart: NSR no murmurs Abd: Soft positive bs Skin: No cyanosis or erythema Muscle: Left hemiparesis. Moves right side well. Neuro: Pt awake and alert. Pupils 3mm bilaterally reactive bilaterally. Follows simple commands. Speech clear and appropriate. (Raman Ferrell) Lab, Micro, Other Results Last Impressions Head CT 10/08/17 0600 Signed Impressions: Service Date/Time: Sunday, October 08, 2017 04:04 - CONCLUSION: No significant change. Matthew Hutchison MD Neck CTA 10/07/17 0000 Signed Impressions: Service Date/Time: Saturday, October 07, 2017 12:57 - CONCLUSION: Normal examination. Bovine origin of the great vessels. Vic Serna MD Head CTA 10/07/17 0000 Signed Impressions: Service Date/Time: Saturday, October 07, 2017 12:57 - CONCLUSION: Somewhat unusual anatomy involving the right internal carotid bifurcation. 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 No evidence of aneurysm or etiology for subarachnoid hemorrhage is seen. Vic Serna MD Laboratory Tests Test 10/08/17 04:45 White Blood Count 10.9 TH/MM3 Red Blood Count 4.77 MIL/MM3 Hemoglobin 14.4 GM/DL Hematocrit 43.5 % Mean Corpuscular Volume 91.3 FL Mean Corpuscular Hemoglobin 30.2 PG Mean Corpuscular Hemoglobin Concent 33.1 % Red Cell Distribution Width 14.3 % Platelet Count 214 TH/MM3 Mean Platelet Volume 9.3 FL Neutrophils (%) (Auto) 83.1 % Lymphocytes (%) (Auto) 10.1 % Monocytes (%) (Auto) 6.3 % Eosinophils (%) (Auto) 0.3 % Basophils (%) (Auto) 0.2 % Neutrophils # (Auto) 9.1 TH/MM3 Lymphocytes # (Auto) 1.1 TH/MM3 Monocytes # (Auto) 0.7 TH/MM3 Eosinophils # (Auto) 0.0 TH/MM3 Basophils # (Auto) 0.0 TH/MM3 CBC Comment DIFF FINAL Differential Comment Blood Urea Nitrogen 11 MG/DL Creatinine 0.83 MG/DL Random Glucose 100 MG/DL Total Protein 7.0 GM/DL Albumin 3.9 GM/DL Calcium Level 8.5 MG/DL Alkaline Phosphatase 64 U/L Aspartate Amino Transf (AST/SGOT) 21 U/L Alanine Aminotransferase (ALT/SGPT) 21 U/L Total Bilirubin 0.6 MG/DL Sodium Level 138 MEQ/L Potassium Level 3.8 MEQ/L Chloride Level 107 MEQ/L Carbon Dioxide Level 22.6 MEQ/L Anion Gap 8 MEQ/L Estimat Glomerular Filtration Rate 71 ML/MIN (Raman Ferrell) Medical Decision Making Impression and Plan A: 1. 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 Follow up CT head without significant progression. 2. Unregulated hypertension 3. Recurrent urinary tract infection on prophylactic antibiotic therapy. PLAN Continue with close neuro checks. Continue with blood pressure control to avoid rebleed and clinical deterioration Rehab efforts to improve left hemiparesis. (Raman Ferrell) Attending Statement The exam, history, and the medical decision-making described in the above note were completed with the assistance of the mid-level provider. I reviewed and agree with the findings presented. I attest that I had a [id number] encounter with the patient on the same day, and personally performed and documented my assessment and findings in the medical record. Follow-up CT scan of the head is stable with no progression of the hemorrhage. Her left facial droop and hemiplegia has improved. She remains on Cardene drip for hypertension regulation. Continue with hypertension control and neurologic monitoring. Out of bed with physical therapy and speech therapy for swallowing evaluation and advance diet as tolerated. Discussed with the furniture shampooer Dr. Cali. (Alejandro Fitzgerald MD) Raman Ferrell Oct 08, 2017 10:45 Alejandro Fitzgerald MD Oct 08, 2017 12:19
--- NOTE | 2017-10-08 12:10 | HHI.CCPN ---
Subjective Remarks/Hospital Course Patient is a 57-year-old female with past medical history significant for hypertension currently off medication, recurrent UTI on Keflex for prophylaxis. She was visiting her son who is admitted in the hospital and had abrupt onset of headache with left-sided hemiplegia. A stroke alert was initiated and patient was moved to the emergency department. A stat CT of the head showed moderate-sized, approximately 3.0 x 3.2 cm, right basal ganglia hemorrhage with mass effect on the right lateral ventricle. Blood work was unremarkable and coags were negative. Initial blood pressure was 190-200 systolic and patient was started on Cardene infusion. Dr. King neurology and Dr. Fitzgerald neurosurgery had been contacted and consulted by ED I evaluated the patient in the emergency department. Patient appears anxious but able to talk normally she has flaccid paralysis of the left side of body with left hemisensory loss. CT of the head was personally reviewed. Titrate Cardene to keep systolic blood pressure less than 150 and also add when necessary labetalol. Ativan when necessary for twitching of the lower extremity. I doubt any surgical intervention is warranted at this time. CTA of brain to rule aneurysm SUBJ 10/08/17: Lying in bed able to talk normally. Left hemiparesis has shown significant improvement. CT of the head stable. We'll start by mouth antihypertensives with lisinopril and hydrochlorothiazide. Objective Vital Signs Date Time Temp Pulse Resp B/P (MAP) Pulse Ox O2 Delivery O2 Flow Rate FiO2 10/08/17 08:37 127 146/72 10/08/17 08:35 97 10/08/17 04:00 99.0 11 10/07/17 20:36 21 10/07/17 19:00 Room Air Intake and Output 10/08/17 10/08/17 10/09/17 08:00 16:00 00:00 Intake Total 1000 ml Output Total 1200 ml Balance -200 ml Result Diagram: 10/08/17 0445 10/08/[address] of the head: Moderate-sized, approximately 3.0 x 3.2 cm, right basal ganglia hemorrhage with mass effect on the right lateral ventricle Objective Remarks GENERAL: 57 year-old woman, lying in the ICU bed SKIN: Warm/dry. HEAD: Atraumatic. Normocephalic. EYES: Pupils equal and round. No scleral icterus. No injection or drainage. ENT: No nasal bleeding or discharge. Mucous membranes pink and moist. Left facial droop NECK: Trachea midline. No JVD. CARDIOVASCULAR: Regular rate and rhythm. Grade 2 systolic murmur heard in the apex and lower left sternal border RESPIRATORY: No accessory muscle use. Clear to auscultation. Breath sounds equal bilaterally. GASTROINTESTINAL: Abdomen soft, non-tender, nondistended. Hepatic and splenic margins not palpable. Well-healed midline scar in the lower abdomen MUSCULOSKELETAL: No clubbing. No cyanosis. No edema. NEUROLOGICAL: Awake and alert, normal speech. Left facial droop. 4/5 strength left upper and lower extremity. Left hemisensory loss. A/P Assessment and Plan PLAN: NEURO: Moderate-sized, right basal ganglia hemorrhage 3.0 x 3.2 cm Left hemiparesis - CT of the head: moderate sixed right BG hemorrhage with mass effect on right lateral ventricle - Repeat CT of the head stable hemorrhage. CT angiogram of the head and neck negative for aneurysm - Neurosurgery Dr. Fitzgerald. Continue conservative management - PT/OT/Speech RESP: - DuoNeb every 6 hours when necessary - Aggressive pulmonary toilet CV: Hypertensive emergency History of hypertension Cardiac murmur - Cardene infusion to target systolic blood pressure less than 150 - IV labetalol 20 mg every 6 hours when necessary for SBP more than 160 - Normal saline 125 ml per hour - Start enalapril 10 mg by mouth twice a day, start hydrochlorothiazide 12.5 mg daily - 2 D Echo to evaluate cardiac murmur pending GI: - IV Protonix 40 mg daily - Bedside swallow and clear liquid diet - Speech evaluation : - Monitor renal function closely. Chen catheter. ID: History of recurrent UTI - No antibiotics at this time monitor for infection HEME: - Monitor CBC, CMP, coags ENDO: - Sliding-scale insulin - Electrolyte replacement per protocol PROPH: - Bilateral lower extremity SCDs/ESTIVEN. IV Protonix 40 mg daily. LINES: - Utilize peripheral IVs, central line if needed Level 3 Shine Cali MD Oct 08, 2017 12:10
[2017-10-08] MEDS: HYDROCHLOROTHIAZIDE 12.5 MG CAP PO SCH (12:53)
[2017-10-08] MEDS: ENALAPRIL MALEATE 10 MG TAB PO SCH ×2 (12:53→21:01)
--- NOTE | 2017-10-08 13:20 | HHI.PR ---
Review/Management Diagnosis right basal ganglia hemorrhage---probably hypertensive Plan BP control MRI brain Diagnosis/Plan: Subjective Subjective Comments No acute events reported She still feels weak on left but improving Active Medications Current Medications Medications (Trade) Dose Ordered Sig/Ermelinda Route Start Time Stop Time Status Last Admin Potassium Chloride/Sodium Chloride 1,000 ml @ 100 mls/hr Q10H IV 10/07/17 08:42 10/08/17 12:54 (NS Flush) 2 ml UNSCH PRN IV FLUSH 10/07/17 08:45 (NS Flush) 2 ml BID IV FLUSH 10/07/17 09:00 10/08/17 08:23 (Protonix Inj) 40 mg DAILY IV PUSH 10/07/17 09:00 10/08/17 08:23 (Duoneb Neb) 1 ampule Q2HR NEB PRN INH 10/07/17 08:45 Miscellaneous Information 1 Q361D XX 10/07/17 08:45 (Chlorhexidine 2% Cloth) 3 pack Taper DAILY@04 TOP 10/08/17 04:00 10/04/18 03:59 (Chlorhexidine 2% Cloth) 3 pack UNSCH PRN TOP 10/07/17 08:45 (Sangita-Colace) 1 tab BID PO 10/07/17 09:00 (Milk Of Magnesia Liq) 30 ml Q12H PRN PO 10/07/17 08:45 (Senokot) 17.2 mg Q12H PRN PO 10/07/17 08:45 (Dulcolax Supp) 10 mg DAILY PRN RECTAL 10/07/17 08:45 (Lactulose Liq) 30 ml DAILY PRN PO 10/07/17 08:45 Nicardipine HCl 25 mg/Sodium Chloride 250 ml @ 50 mls/hr TITRATE PRN IV 10/07/17 08:45 10/08/17 12:53 (Trandate Inj) 20 mg Q4H PRN IV PUSH 10/07/17 08:45 Potassium Chloride 100 ml @ 50 mls/hr Q2H PRN IV 10/07/17 09:00 Potassium Chloride 100 ml @ 50 mls/hr Q2H PRN IV 10/07/17 09:00 (K-Lyte Cl Eff) 50 meq UNSCH PRN PO 10/07/17 09:00 Potassium Chloride 100 ml @ 25 mls/hr UNSCH PRN IV 10/07/17 09:00 Potassium Chloride 100 ml @ 50 mls/hr Q2H PRN IV 10/07/17 09:00 Magnesium Sulfate 4 gm/Sodium Chloride 100 ml @ 50 mls/hr UNSCH PRN IV 10/07/17 09:00 (Mag-Ox) 800 mg UNSCH PRN PO 10/07/17 09:00 Magnesium Sulfate 2 gm/Sodium Chloride 100 ml @ 50 mls/hr UNSCH PRN IV 10/07/17 09:00 (K-Phos) 2,000 mg Q4H PRN PO 10/07/17 09:00 Sodium Phosphate 30 mmol/Sodium Chloride 250 ml @ 42 mls/hr UNSCH PRN IV 10/07/17 09:00 (K-Phos) 2,000 mg UNSCH PRN PO/TUBE 10/07/17 09:00 Potassium Phosphate 30 mmol/ Sodium Chloride 260 ml @ 42 mls/hr UNSCH PRN IV 10/07/17 09:00 (Ativan Inj) 0.5 mg Q4H PRN IV PUSH 10/07/17 10:30 10/07/17 10:30 (Zofran Inj) 4 mg Q6HR PRN IV PUSH 10/07/17 21:15 10/08/17 12:07 (fentaNYL INJ) 25 mcg Q1H PRN IV PUSH 10/07/17 21:15 10/08/17 12:08 (Vasotec) 10 mg BID PO 10/08/17 12:15 10/08/17 12:53 (Microzide) 12.5 mg DAILY PO 10/08/17 12:15 10/08/17 12:53 (Percocet 7.5-325 Mg) 1 tab Q6H PRN PO 10/08/17 12:15 Allergies Allergies Coded Allergies Unable to Assess (Verified Allergy, Unknown, 10/07/17) Exam I&O / VS Vital Signs Date Time Temp Pulse Resp B/P (MAP) Pulse Ox O2 Delivery O2 Flow Rate FiO2 10/08/17 12:53 99 121/57 10/08/17 08:37 127 146/72 10/08/17 08:35 97 10/08/17 08:00 99.0 100 13 149/71 (97) 97 10/08/17 06:00 88 10/08/17 04:00 99.0 102 11 141/82 (101) 96 10/08/17 04:00 102 10/08/17 02:00 98 10/08/17 00:17 124 157/86 10/08/17 00:00 99.0 124 19 129/70 (89) 95 10/08/17 00:00 124 10/07/17 22:00 94 10/07/17 20:36 97 21 10/07/17 20:15 110 144/81 10/07/17 20:00 99.2 112 33 142/93 (109) 96 10/07/17 20:00 112 10/07/17 20:00 112 142/93 10/07/17 19:00 96 Room Air 10/07/17 19:00 100 135/71 10/07/17 18:00 87 10/07/17 16:00 98.0 96 16 128/69 (88) 96 10/07/17 16:00 88 10/07/17 14:00 107 10/07/17 14:00 106 132/64 Exam Comments alert, speech normal Cn intact MOTOR 4+/5 LUE and LLE Objective Radiology Results CT brain yesterday--stable right BG hemorrhage CTA noted. Micro and Labs Laboratory Tests Test 10/08/17 04:45 White Blood Count 10.9 Red Blood Count 4.77 Hemoglobin 14.4 Hematocrit 43.5 Mean Corpuscular Volume 91.3 Mean Corpuscular Hemoglobin 30.2 Mean Corpuscular Hemoglobin Concent 33.1 Red Cell Distribution Width 14.3 Platelet Count 214 Mean Platelet Volume 9.3 Neutrophils (%) (Auto) 83.1 Lymphocytes (%) (Auto) 10.1 Monocytes (%) (Auto) 6.3 Eosinophils (%) (Auto) 0.3 Basophils (%) (Auto) 0.2 Neutrophils # (Auto) 9.1 Lymphocytes # (Auto) 1.1 Monocytes # (Auto) 0.7 Eosinophils # (Auto) 0.0 Basophils # (Auto) 0.0 CBC Comment DIFF FINAL Differential Comment Blood Urea Nitrogen 11 Creatinine 0.83 Random Glucose 100 Total Protein 7.0 Albumin 3.9 Calcium Level 8.5 Alkaline Phosphatase 64 Aspartate Amino Transf (AST/SGOT) 21 Alanine Aminotransferase (ALT/SGPT) 21 Total Bilirubin 0.6 Sodium Level 138 Potassium Level 3.8 Chloride Level 107 Carbon Dioxide Level 22.6 Anion Gap 8 Estimat Glomerular Filtration Rate 71 Alvin King PhD Oct 08, 2017 13:20
[2017-10-08] MEDS: oxyCODONE/ACETAMINOPHEN 7.5 MG/325 MG TAB PO PRN (15:30)
--- NOTE | 2017-10-08 16:41 | ECHRPT ---
Indication: murmur CONCLUSIONS Technically difficult study The left ventricular systolic function is normal with an estimated ejection fraction in the range of 55-60%. There was limited left ventricular wall motion assessment due to poor endocardial visualization. Trace mitral valve regurgitation. There is trace tricuspid valve regurgitation. BP: / HR: Rhythm: MEASUREMENTS (Male / Female) Normal Values Technical Quality:Technically difficult study 2D ECHO LV Diastolic Diameter PLAX 3.2 cm 4.2 - 5.9 / 3.9 - 5.3 cm LV Systolic Diameter PLAX 2.4 cm IVS Diastolic Thickness 1.5 cm 0.6 - 1.0 / 0.6 - 0.9 cm LVPW Diastolic Thickness 0.7 cm 0.6 - 1.0 / 0.6 - 0.9 cm LV Relative Wall Thickness 0.7 RV Internal Dim ED PLAX 1.8 cm M-MODE Aortic Root Diameter MM 2.8 cm LA Systolic Diameter MM 2.7 cm LA Ao Ratio MM 1.0 AV Cusp Separation MM 1.9 cm DOPPLER TR Peak Velocity 221.0 cm/s TR Peak Gradient 19.5 mmHg Right Atrial Pressure 10.0 mmHg Pulmonary Artery Systolic Pressu 29.5 mmHg Right Ventricular Systolic Press 29.5 mmHg FINDINGS LEFT VENTRICLE Normal left ventricular size. There is assymetric septal hypertrophy. The left ventricular systolic function is normal with an estimated ejection fraction in the range of 55-60%. There was limited left ventricular wall motion assessment due to poor endocardial visualization. RIGHT VENTRICLE Normal right ventricular size and systolic function. LEFT ATRIUM The left atrial size is normal. RIGHT ATRIUM The right atrium is not well visualized. ATRIAL SEPTUM The interatrial septum not well visualized. AORTA The aortic root and proximal ascending aorta are not well visualized. MITRAL VALVE Grossly normal Trace mitral valve regurgitation. No mitral valve stenosis. AORTIC VALVE Grossly normal No stenosis or regurgitation noted. TRICUSPID VALVE Grossly normal There is trace tricuspid valve regurgitation. The estimated pulmonary arterial pressure is 29.5 mmHg. PULMONARY VALVE The pulmonary valve is not well visualized. VESSELS IVC not well visualized PERICARDIUM No significant pericardial effusion noted. Neri Rodriguez DO (Electronically Signed) Final Date:08 October 2017 16:41
[2017-10-08] MEDS: CHLORHEXIDINE GLUCONATE 2 % 1 PACK (2 CLOTHS) TOP SCH (21:46)
[2017-10-08] MEDS ORDERED: CEPH-459 PO (21:56)
--- NOTE | 2017-10-08 23:16 | EKG ---
Date Performed: 10/07/2017 Time Performed: 08:03:59 PTAGE: 57 years EKG: Sinus rhythm LEFT ATRIAL ENLARGEMENT POSSIBLE LEFT VENTRICULAR HYPERTROPHY ABNORMAL ECG NO PREVIOUS TRACING DOCTOR: Neri Rodriguez Interpretating Date/Time 10/08/2017 23:16:03
[2017-10-09] VITALS (14 sets, daily range): BP systolic 128–171; BP diastolic 62–87; PULSE 78–108; RESP 16; TEMP 97.9–99.4; O2SAT 97–100
[2017-10-09] MEDS: oxyCODONE/ACETAMINOPHEN 7.5 MG/325 MG TAB PO PRN ×5 (00:12→23:15)
[2017-10-09] MEDS: NS + KCL 20 MEQ INJ 1,000 ML IV SCH ×3 (00:42→18:42)
[2017-10-09] MEDS: SODIUM CHLORIDE 0.9% FLUSH 10 ML FLUSH IV FLUSH SCH ×3 (09:00→22:39)
[2017-10-09] MEDS: DOCUSATE SODIUM 50 MG/SENNA 8.6 MG TAB PO SCH ×2 (09:22→22:14)
[2017-10-09] MEDS: HYDROCHLOROTHIAZIDE 12.5 MG CAP PO SCH (09:22)
[2017-10-09] MEDS: PANTOPRAZOLE SODIUM 40 MG VIAL IV PUSH SCH (09:22)
--- NOTE | 2017-10-09 09:22 | HHI.CCPN ---
Subjective Remarks/Hospital Course Patient is a 57-year-old female with past medical history significant for hypertension currently off medication, recurrent UTI on Keflex for prophylaxis. She was visiting her son who is admitted in the hospital and had abrupt onset of headache with left-sided hemiplegia. A stroke alert was initiated and patient was moved to the emergency department. A stat CT of the head showed moderate-sized, approximately 3.0 x 3.2 cm, right basal ganglia hemorrhage with mass effect on the right lateral ventricle. Blood work was unremarkable and coags were negative. Initial blood pressure was 190-200 systolic and patient was started on Cardene infusion. Dr. King neurology and Dr. Bender neurosurgery had been contacted and consulted by ED I evaluated the patient in the emergency department. Patient appears anxious but able to talk normally she has flaccid paralysis of the left side of body with left hemisensory loss. CT of the head was personally reviewed. Titrate Cardene to keep systolic blood pressure less than 150 and also add when necessary labetalol. Ativan when necessary for twitching of the lower extremity. I doubt any surgical intervention is warranted at this time. CTA of brain to rule aneurysm SUBJ 10/08/17: Lying in bed able to talk normally. Left hemiparesis has shown significant improvement. CT of the head stable. We'll start by mouth antihypertensives with enalapril and hydrochlorothiazide. 10/09: Off Cardene as of now. Will discontinue. Increase enalapril to 20 BID. Resume Cephalexin for UTI prophylaxis. Up to chair. MRI ordered by Dr. King Objective Vital Signs Date Time Temp Pulse Resp B/P (MAP) Pulse Ox O2 Delivery O2 Flow Rate FiO2 10/09/17 06:00 80 10/09/17 04:00 98.8 16 136/63 (87) 97 10/08/17 20:00 Nasal Cannula 1.00 10/07/17 20:36 21 Intake and Output 10/09/17 10/09/17 10/09/17 07:59 15:59 23:59 Intake Total 240 ml Output Total 700 ml Balance -460 ml Result Diagram: 10/08/17 0445 10/08/17444 Imaging CT of the head: Moderate-sized, approximately 3.0 x 3.2 cm, right basal ganglia hemorrhage with mass effect on the right lateral ventricle Objective Remarks GENERAL: 57 year-old woman, lying in the ICU bed SKIN: Warm/dry. HEAD: Atraumatic. Normocephalic. EYES: Pupils equal and round. No scleral icterus. No injection or drainage. ENT: No nasal bleeding or discharge. Mucous membranes pink and moist. Left facial droop NECK: Trachea midline. No JVD. CARDIOVASCULAR: Regular rate and rhythm. Grade 2 systolic murmur heard in the apex and lower left sternal border RESPIRATORY: No accessory muscle use. Clear to auscultation. Breath sounds equal bilaterally. GASTROINTESTINAL: Abdomen soft, non-tender, nondistended. Hepatic and splenic margins not palpable. Well-healed midline scar in the lower abdomen MUSCULOSKELETAL: No clubbing. No cyanosis. No edema. NEUROLOGICAL: Awake and alert, normal speech. Left facial droop. 4/5 strength left upper and lower extremity. Left hemisensory loss persistent A/P Assessment and Plan PLAN: NEURO: Moderate-sized, right basal ganglia hemorrhage 3.0 x 3.2 cm Left hemiparesis - CT of the head: moderate sixed right BG hemorrhage with mass effect on right lateral ventricle - Repeat CT of the head stable hemorrhage. CT angiogram of the head and neck negative for aneurysm, focal stenosis at origin of Right JAYSON. No intervention needed at this time per Dr. bender - Neurosurgery Dr. Bender. Continue conservative management - PT/OT/Speech - C/o severe head ache- f/u MRI of brain. DC fentanyl. Use PRN Dilaudid and oxycodone RESP: - DuoNeb every 6 hours when necessary - Aggressive pulmonary toilet CV: Hypertensive emergency History of hypertension Cardiac murmur - Cardene infusion to target systolic blood pressure less than 150 - IV labetalol 20 mg every 6 hours when necessary for SBP more than 160 - Normal saline gtt - Increased enalapril to 20 mg by mouth twice a day, continue hydrochlorothiazide 12.5 mg daily - 2 D Echo to evaluate cardiac murmur-Nl EF Trace MR/TR GI: - IV Protonix 40 mg daily - Bedside swallow and clear liquid diet. Advance diet per speech rec - Speech evaluation : - Monitor renal function closely. Chen catheter. ID: History of recurrent UTI - Resume cephalexin 250 daily for UTI prophylaxis HEME: - Monitor CBC, CMP, coags ENDO: - Sliding-scale insulin - Electrolyte replacement per protocol PROPH: - Bilateral lower extremity SCDs/ESTIVEN. IV Protonix 40 mg daily. LINES: - Utilize peripheral IVs, central line if needed Level 3 Discussed with . Due to worsening headache, and still poorly controlled hypertension continue ICU care Shine Cali MD Oct 09, 2017 09:22
[2017-10-09] MEDS ORDERED: HYDROmorphone HCL PF 1 MG/ML VIAL IV PUSH PRN ×3 (09:30→17:30)
[2017-10-09] MEDS ORDERED: CEPHALEXIN MONOHYDRATE 250 MG CAP PO ONE (09:30)
--- NOTE | 2017-10-09 09:46 | HHI.NSPN ---
(Raman Ferrell) History Chief Complaint: Fronal headaches, ICH. (Raman Ferrell) Interval History This is a 57-year-old female who was visiting her son in the hospital when she had an abrupt onset of left-sided hemiplegia and neglect and reportedly some twitching and shaking in the right side, but these were not related as seizures. She has a dysarthric and slurred speech and confusion along with complaints of headache. She was taken to the emergency room where she was very hypertensive with an initial blood pressure of 215/112 at one point. Her hypertension was regulated and CT scan of the head obtained that reveals a 3.2 cm right basal ganglia hemorrhage. The ventricles are small and not dilated and there is no intraventricular hemorrhage noted. She was admitted to the surgical intensive care unit for hemodynamic and neurologic monitoring. Subsequent CT angiogram of the brain as well as the carotids has also been obtained and no underlying aneurysm or vascular abnormality is noted with some areas of focal stenosis in the right anterior cerebral artery. The patient is lethargic and has also received some Ativan for shivers and shakes but is easily arousable. A detailed history is difficult to obtain from her. 10/08/17: Awake and alert. Complains of frontal headaches. Nausea but no vomiting today. Left hemiparesis pt states improved some. 10/09/17: Complains of frontal headache and nausea no vomiting. Left hemiparesis stable. (Raman Ferrell) Review of Systems General: Negative for: fever, chills, insomnia Respiratory: Negative for: shortness of breath, cough, sputum Cardiovascular: Negative for: chest pain Gastrointestinal: Positive for: nausea, Negative for: vomitting, diarrhea, constipation (Raman Ferrell) Exam Results Vital Signs Date Time Temp Pulse Resp B/P (MAP) Pulse Ox O2 Delivery O2 Flow Rate FiO2 10/09/17 06:00 80 10/09/17 04:00 98.8 16 136/63 (87) 97 10/08/17 20:00 Nasal Cannula 1.00 10/07/17 20:36 21 Intake and Output 11/26/17 11/26/17 11/27/17 08:00 16:00 00:00 Intake Total 240 ml Output Total 700 ml Balance -460 ml (Raman Ferrell) Physical Examination General: Pt resting comfortably in bed in NAD. Eyes: Pupils equal. Sclera anicteric. Resp: CTA bilaterally Heart: NSR no murmurs Abd: Soft positive bs Skin: No cyanosis or erythema Muscle: Left hemiparesis. Moves right side well. Neuro: Pt awake and alert. Pupils 3mm bilaterally reactive bilaterally. Follows simple commands. Speech clear and appropriate. (Raman Ferrell) Lab, Micro, Other Results Last Impressions Head CT 10/08/17 0600 Signed Impressions: Service Date/Time: Sunday, October 08, 2017 04:04 - CONCLUSION: No significant change. Matthew Hutchison MD Neck CTA 10/07/17 0000 Signed Impressions: Service Date/Time: Saturday, October 07, 2017 12:57 - CONCLUSION: Normal examination. Bovine origin of the great vessels. Vic Serna MD Head CTA 10/07/17 0000 Signed Impressions: Service Date/Time: Saturday, October 07, 2017 12:57 - CONCLUSION: Somewhat unusual anatomy involving the right internal carotid bifurcation. 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 No evidence of aneurysm or etiology for subarachnoid hemorrhage is seen. Vic Serna MD (Raman Ferrell) Medical Decision Making Impression and Plan A: 1. 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 Follow up CT head without significant progression. 2. Unregulated hypertension 3. Recurrent urinary tract infection on prophylactic antibiotic therapy. PLAN Continue with close neuro checks. Continue with blood pressure control to avoid rebleed and clinical deterioration Rehab efforts to improve left hemiparesis. (Raman Ferrell) Attending Statement The exam, history, and the medical decision-making described in the above note were completed with the assistance of the mid-level provider. I reviewed and agree with the findings presented. I attest that I had a [id number] encounter with the patient on the same day, and personally performed and documented my assessment and findings in the medical record. Complains of fluctuating headaches and nausea. Overall exam stable with the moderate left hemiparesis which has improved since her initial presentation. Blood pressure is well regulated. MRI scan the brain follow-up evaluation requested by neurology. Discussed with ampoule filler and sealer Dr. Cali. (Alejandro Fitzgerald MD) Raman Ferrell Oct 09, 2017 09:46 Alejandro Fitzgerald MD Oct 09, 2017 11:23
[2017-10-09] MEDS ORDERED: GADODIAMIDE PF 287 MG/ML 10 ML VIAL (for RAD MRI) IVCONTRAST ONE (11:11)
--- NOTE | 2017-10-09 11:42 | RADRPT ---
EXAM DATE/TIME: 10/09/2017 10:58 [facility] COMPARISON: CT BRAIN W/O CONTRAST, October 07, 2017, 7:51. CT BRAIN W/O CONTRAST, October 08, 2017, 4:04. INDICATIONS : Hemorrhage. CONTRAST: 10 cc Omniscan (gadodiamide) IV MEDICAL HISTORY : Hypertension. SURGICAL HISTORY : Inguinal hernia repair. ENCOUNTER: Initial ACUITY: 1 day PAIN SCORE: 0/10 LOCATION: cranial TECHNIQUE: Multiplanar, multisequence MRI of the brain was performed both prior to and following the administrat ion of paramagnetic contrast. FINDINGS: CEREBRUM: There is a subacute hematoma in the right posterior sylvian region which measures 5.0 x 1.7 cm as swapna sured in sagittal projection. The hematoma demonstrates marked reduction of signal on T2 weighted sc an, isointense to white matter on T1, characteristic of methemoglobin. There is also a focal area th at demonstrates T1 shortening posterior and superior measuring 12 mm characteristic of deoxyhemoglobi n. There is no abnormal enhancement about are within the hematoma. Moderate surrounding cerebral ed taz. There is 6 mm midline shift towards the left.. WHITE MATTER: There are scattered nonspecific areas of T2 prolongation in the periventricular and subcortical white matter of the supratentorial brain. POSTERIOR FOSSA: The cerebellum and brainstem are intact. The 4th ventricle is midline. The cerebellopontine angle is unremarkable. The cerebellar tonsils are normal in position. DIFFUSION IMAGING: No focal areas of restricted diffusion are seen. No evidence of acute infarction. EXTRACRANIAL: The visualized portions of the orbits and paranasal sinuses are unremarkable. POST-CONTRAST: No abnormal areas of parenchymal or dural enhancement. No evidence of blood-brain barrier breakdown. CONCLUSION: Large right posterior sylvian hematoma with evidence of both methemoglobin and deoxyhemoglobin. No f ocal abnormal areas of enhancement. Slight increase in midline shift towards the left, now measuring 6 mm (previously measured 4 mm). Aamir Diallo MD on October 09, 2017 at 11:33 Board Certified Radiologist. This report was verified electronically.
[2017-10-09] MEDS: LABETALOL HCL 100 MG/20 ML VIAL IV PUSH PRN (13:03)
--- NOTE | 2017-10-09 13:53 | HHI.PR ---
Review/Management Diagnosis right basal ganglia hemorrhage---probably hypertensive Plan continue BP control Diagnosis/Plan: Subjective Subjective Comments No acute events reported c/o severe headache Still weak on left with no change Active Medications Current Medications Medications (Trade) Dose Ordered Sig/Ermelinda Route Start Time Stop Time Status Last Admin Potassium Chloride/Sodium Chloride 1,000 ml @ 100 mls/hr Q10H IV 10/07/17 08:42 10/09/17 00:42 (NS Flush) 2 ml UNSCH PRN IV FLUSH 10/07/17 08:45 (NS Flush) 2 ml BID IV FLUSH 10/07/17 09:00 10/08/17 21:01 (Protonix Inj) 40 mg DAILY IV PUSH 10/07/17 09:00 10/09/17 09:22 (Duoneb Neb) 1 ampule Q2HR NEB PRN INH 10/07/17 08:45 Miscellaneous Information 1 Q361D XX 10/07/17 08:45 10/07/17 08:45 (Chlorhexidine 2% Cloth) 3 pack Taper DAILY@04 TOP 10/08/17 04:00 10/04/18 03:59 (Chlorhexidine 2% Cloth) 3 pack UNSCH PRN TOP 10/07/17 08:45 (Sangita-Colace) 1 tab BID PO 10/07/17 09:00 10/09/17 09:22 (Milk Of Magnesia Liq) 30 ml Q12H PRN PO 10/07/17 08:45 (Senokot) 17.2 mg Q12H PRN PO 10/07/17 08:45 (Dulcolax Supp) 10 mg DAILY PRN RECTAL 10/07/17 08:45 (Lactulose Liq) 30 ml DAILY PRN PO 10/07/17 08:45 (Trandate Inj) 20 mg Q4H PRN IV PUSH 10/07/17 08:45 10/09/17 13:03 Potassium Chloride 100 ml @ 50 mls/hr Q2H PRN IV 10/07/17 09:00 Potassium Chloride 100 ml @ 50 mls/hr Q2H PRN IV 10/07/17 09:00 (K-Lyte Cl Eff) 50 meq UNSCH PRN PO 10/07/17 09:00 Potassium Chloride 100 ml @ 25 mls/hr UNSCH PRN IV 10/07/17 09:00 Potassium Chloride 100 ml @ 50 mls/hr Q2H PRN IV 10/07/17 09:00 Magnesium Sulfate 4 gm/Sodium Chloride 100 ml @ 50 mls/hr UNSCH PRN IV 10/07/17 09:00 (Mag-Ox) 800 mg UNSCH PRN PO 10/07/17 09:00 Magnesium Sulfate 2 gm/Sodium Chloride 100 ml @ 50 mls/hr UNSCH PRN IV 10/07/17 09:00 (K-Phos) 2,000 mg Q4H PRN PO 10/07/17 09:00 Sodium Phosphate 30 mmol/Sodium Chloride 250 ml @ 42 mls/hr UNSCH PRN IV 10/07/17 09:00 (K-Phos) 2,000 mg UNSCH PRN PO/TUBE 10/07/17 09:00 Potassium Phosphate 30 mmol/ Sodium Chloride 260 ml @ 42 mls/hr UNSCH PRN IV 10/07/17 09:00 (Ativan Inj) 0.5 mg Q4H PRN IV PUSH 10/07/17 10:30 10/07/17 10:30 (Zofran Inj) 4 mg Q6HR PRN IV PUSH 10/07/17 21:15 10/08/17 21:08 (Microzide) 12.5 mg DAILY PO 10/08/17 12:15 10/09/17 09:22 (Percocet 7.5-325 Mg) 1 tab Q6H PRN PO 10/08/17 12:15 10/09/17 09:22 (Keflex) 250 mg HS PO 10/09/17 21:00 (Vasotec) 20 mg BID PO 10/09/17 21:00 (Dilaudid Pf Inj) 1 mg Q4H PRN IV PUSH 10/09/17 09:30 10/09/17 10:46 Allergies Allergies Coded Allergies Unable to Assess (Verified Allergy, Unknown, 10/07/17) Exam I&O / VS Vital Signs Date Time Temp Pulse Resp B/P (MAP) Pulse Ox O2 Delivery O2 Flow Rate FiO2 10/09/17 06:00 80 10/09/17 04:00 98.8 92 16 136/63 (87) 97 10/09/17 04:00 92 10/09/17 02:00 94 10/09/17 00:00 95 10/09/17 00:00 99.4 95 16 150/81 (104) 100 10/08/17 22:00 84 10/08/17 20:00 118 10/08/17 20:00 97 Nasal Cannula 1.00 10/08/17 20:00 98.3 118 20 168/84 (112) 100 10/08/17 19:00 97 Room Air 10/08/17 18:00 90 10/08/17 16:30 22 10/08/17 16:00 98.3 100 24 127/71 (89) 100 10/08/17 16:00 100 10/08/17 14:00 90 Exam Comments alert, speech normal Cn intact MOTOR 4+/5 LUE and LLE Objective Radiology Results MRI brain--right hemisphere hematoma with no sign of underlying tumor Alvin King. PhD MD Oct 09, 2017 13:53
[2017-10-09] MEDS: LORazepam 2 MG/ML VIAL IV PUSH PRN ×2 (15:06→22:38)
[2017-10-09] MEDS: ONDANSETRON HCL 4 MG/2 ML VIAL IV PUSH PRN ×2 (15:06→22:13)
[2017-10-09] MEDS: hydrALAZINE HCL 20 MG/ML VIAL IV PUSH PRN (18:42)
[2017-10-09] MEDS: niCARdipine INJ 25 MG in SODIUM CHLOR 0.9% 250 ML INJ 240 ML IV PRN (22:00)
[2017-10-09] MEDS: CEPHALEXIN MONOHYDRATE 250 MG CAP PO SCH (22:14)
[2017-10-09] MEDS: ENALAPRIL MALEATE 10 MG TAB PO SCH (22:16)
[2017-10-10] VITALS (10 sets, daily range): BP systolic 129–163; BP diastolic 60–82; PULSE 73–112; RESP 15–21; TEMP 98–98.8; O2SAT 93–98
[2017-10-10] MEDS: LABETALOL HCL 100 MG/20 ML VIAL IV PUSH PRN ×2 (01:24→05:27)
[2017-10-10] MEDS: niCARdipine INJ 25 MG in SODIUM CHLOR 0.9% 250 ML INJ 240 ML IV PRN (03:52)
[2017-10-10] MEDS: CHLORHEXIDINE GLUCONATE 2 % 1 PACK (2 CLOTHS) TOP SCH (04:00)
[2017-10-10] MEDS: NS + KCL 20 MEQ INJ 1,000 ML IV SCH ×2 (06:09→16:42)
[2017-10-10] MEDS: PANTOPRAZOLE SODIUM 40 MG VIAL IV PUSH SCH (08:39)
[2017-10-10] MEDS: HYDROCHLOROTHIAZIDE 12.5 MG CAP PO SCH (08:40)
[2017-10-10] MEDS: ENALAPRIL MALEATE 10 MG TAB PO SCH ×2 (08:40→21:12)
[2017-10-10] MEDS: DOCUSATE SODIUM 50 MG/SENNA 8.6 MG TAB PO SCH ×2 (09:00→21:45)
--- NOTE | 2017-10-10 09:43 | HHI.NSPN ---
(Raman Ferrell) History Chief Complaint: Fronal headaches, ICH. (Raman Ferrell) Interval History This is a 57-year-old female who was visiting her son in the hospital when she had an abrupt onset of left-sided hemiplegia and neglect and reportedly some twitching and shaking in the right side, but these were not related as seizures. She has a dysarthric and slurred speech and confusion along with complaints of headache. She was taken to the emergency room where she was very hypertensive with an initial blood pressure of 215/112 at one point. Her hypertension was regulated and CT scan of the head obtained that reveals a 3.2 cm right basal ganglia hemorrhage. The ventricles are small and not dilated and there is no intraventricular hemorrhage noted. She was admitted to the surgical intensive care unit for hemodynamic and neurologic monitoring. Subsequent CT angiogram of the brain as well as the carotids has also been obtained and no underlying aneurysm or vascular abnormality is noted with some areas of focal stenosis in the right anterior cerebral artery. The patient is lethargic and has also received some Ativan for shivers and shakes but is easily arousable. A detailed history is difficult to obtain from her. 10/08/17: Awake and alert. Complains of frontal headaches. Nausea but no vomiting today. Left hemiparesis pt states improved some. 10/09/17: Complains of frontal headache and nausea no vomiting. Left hemiparesis stable. 10/10/17: Pt awakens to voice. States headaches improved today. No nausea but poor po intake. Left hemiparesis. Pt back on Cardene drip. (Raman Ferrell) Review of Systems General: Negative for: fever, chills, insomnia Respiratory: Negative for: shortness of breath, cough, sputum Cardiovascular: Negative for: chest pain Gastrointestinal: Negative for: nausea, vomitting, diarrhea, constipation ( Raman Ferrell) Exam Results Vital Signs Date Time Temp Pulse Resp B/P (MAP) Pulse Ox O2 Delivery O2 Flow Rate FiO2 10/10/17 08:00 73 10/10/17 07:00 94 Room Air 21 10/10/17 04:00 98.8 21 163/80 (107) 10/08/17 20:00 1.00 Intake and Output 10/10/17 10/10/17 10/11/17 08:00 16:00 00:00 Intake Total 1050 ml Output Total 1250 ml Balance -200 ml (Raman Ferrell) Physical Examination General: Pt resting comfortably in bed in NAD. Eyes: Pupils equal. Sclera anicteric. Resp: CTA bilaterally Heart: NSR no murmurs Abd: Soft positive bs Skin: No cyanosis or erythema Muscle: Left hemiparesis. Moves right side well. Neuro: Pt awake and alert. Pupils 3mm bilaterally reactive bilaterally. Left facial paresis. Follows simple commands. Speech clear and appropriate. (Raman Ferrell) Lab, Micro, Other Results Last Impressions Brain MRI 10/09/17 0000 Signed Impressions: Service Date/Time: Monday, October 09, 2017 10:58 - CONCLUSION: Large right posterior sylvian hematoma with evidence of both methemoglobin and deoxyhemoglobin. No focal abnormal areas of enhancement. Slight increase in midline shift towards the left, now measuring 6 mm (previously measured 4 mm). Aamir Diallo MD Head CT 10/08/17 0600 Signed Impressions: Service Date/Time: Sunday, October 08, 2017 04:04 - CONCLUSION: No significant change. Matthew Hutchison MD Neck CTA 10/07/17 0000 Signed Impressions: Service Date/Time: Saturday, October 07, 2017 12:57 - CONCLUSION: Normal examination. Bovine origin of the great vessels. Vic Serna MD Head CTA 10/07/17 0000 Signed Impressions: Service Date/Time: Saturday, October 07, 2017 12:57 - CONCLUSION: Somewhat unusual anatomy involving the right internal carotid bifurcation. 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 No evidence of aneurysm or etiology for subarachnoid hemorrhage is seen. Vic Serna MD Laboratory Tests Test 10/09/17 15:29 Thyroid Stimulating Hormone 3rd Gen 0.608 uIU/ML (Raman Ferrell) Medical Decision Making Impression and Plan A: 1. 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 Follow up CT head without significant progression. 2. Unregulated hypertension 3. Recurrent urinary tract infection on prophylactic antibiotic therapy. PLAN Continue with close neuro checks. Continue with blood pressure control to avoid rebleed and clinical deterioration. Pt on Cardene drip will be weaned as blood pressure controlled with oral medication. Rehab efforts to improve left hemiparesis. (Raman Ferrell) Attending Statement The exam, history, and the medical decision-making described in the above note were completed with the assistance of the mid-level provider. I reviewed and agree with the findings presented. I attest that I had a [id number] encounter with the patient on the same day, and personally performed and documented my assessment and findings in the medical record. MRI with unchanged cerebral hemorrhage and no underlying abnormality noted. Continue with hypertension regulation and rehabilitation. (Alejandro Fitzgerald MD) Raman Ferrell Oct 10, 2017 09:43 Alejandro Fitzgerald MD Oct 10, 2017 17:05
[2017-10-10] MEDS: oxyCODONE/ACETAMINOPHEN 7.5 MG/325 MG TAB PO PRN ×3 (10:11→19:37)
--- NOTE | 2017-10-10 12:56 | HHI.CCPN ---
Subjective Remarks/Hospital Course Patient is a 57-year-old female with past medical history significant for hypertension currently off medication, recurrent UTI on Keflex for prophylaxis. She was visiting her son who is admitted in the hospital and had abrupt onset of headache with left-sided hemiplegia. A stroke alert was initiated and patient was moved to the emergency department. A stat CT of the head showed moderate-sized, approximately 3.0 x 3.2 cm, right basal ganglia hemorrhage with mass effect on the right lateral ventricle. Blood work was unremarkable and coags were negative. Initial blood pressure was 190-200 systolic and patient was started on Cardene infusion. Dr. King neurology and Dr. Bender neurosurgery had been contacted and consulted by ED I evaluated the patient in the emergency department. Patient appears anxious but able to talk normally she has flaccid paralysis of the left side of body with left hemisensory loss. CT of the head was personally reviewed. Titrate Cardene to keep systolic blood pressure less than 150 and also add when necessary labetalol. Ativan when necessary for twitching of the lower extremity. I doubt any surgical intervention is warranted at this time. CTA of brain to rule aneurysm SUBJ 10/08/17: Lying in bed able to talk normally. Left hemiparesis has shown significant improvement. CT of the head stable. We'll start by mouth antihypertensives with enalapril and hydrochlorothiazide. 10/09: Off Cardene as of now. Will discontinue. Increase enalapril to 20 BID. Resume Cephalexin for UTI prophylaxis. Up to chair. MRI ordered by Dr. King 10/10: BP control improved, but intermittently hypertensive. Lethargic with 1.5 Dilaudid will reduce to 1 mg when necessary. Speech appears normal except for few word finding difficulties Objective Vital Signs Date Time Temp Pulse Resp B/P (MAP) Pulse Ox O2 Delivery O2 Flow Rate FiO2 10/10/17 10:00 76 10/10/17 08:00 98.0 16 144/79 (100) 94 10/10/17 07:00 Room Air 21 10/08/17 20:00 1.00 Intake and Output 10/10/17 10/10/17 10/11/17 08:00 16:00 00:00 Intake Total 1050 ml Output Total 1250 ml Balance -200 ml Result Diagram: 10/08/17 0445 10/08/[address] of the head: Moderate-sized, approximately 3.0 x 3.2 cm, right basal ganglia hemorrhage with mass effect on the right lateral ventricle Objective Remarks GENERAL: 57 year-old woman, lying in the ICU bed, mildly tremulous SKIN: Warm/dry. HEAD: Atraumatic. Normocephalic. EYES: Pupils equal and round. No scleral icterus. No injection or drainage. ENT: No nasal bleeding or discharge. Mucous membranes pink and moist. Left facial droop NECK: Trachea midline. No JVD. CARDIOVASCULAR: Regular rate and rhythm. Grade 2 systolic murmur heard in the apex and lower left sternal border RESPIRATORY: No accessory muscle use. Clear to auscultation. Breath sounds equal bilaterally. GASTROINTESTINAL: Abdomen soft, non-tender, nondistended. Hepatic and splenic margins not palpable. Well-healed midline scar in the lower abdomen MUSCULOSKELETAL: No clubbing. No cyanosis. No edema. NEUROLOGICAL: Awake and alert, normal speech. Left facial droop. 4/5 strength left upper and lower extremity. Left hemisensory loss persistent A/P Assessment and Plan PLAN: NEURO: Moderate-sized, right basal ganglia hemorrhage 3.0 x 3.2 cm Left hemiparesis - CT of the head: moderate sixed right BG hemorrhage with mass effect on right lateral ventricle - Repeat CT of the head stable hemorrhage. CT angiogram of the head and neck negative for aneurysm, focal stenosis at origin of Right JAYSON. No intervention needed at this time per Dr. bender - Neurosurgery Dr. Bender. Continue conservative management - PT/OT/Speech - C/o severe head ache- f/u MRI of brain. DC fentanyl. Use PRN Dilaudid and oxycodone RESP: - DuoNeb every 6 hours when necessary - Aggressive pulmonary toilet CV: Hypertensive emergency History of hypertension Cardiac murmur - Cardene infusion to target systolic blood pressure less than 150 - IV labetalol 20 mg every 6 hours when necessary for SBP more than 160 - Normal saline gtt - Enalapril to 20 mg by mouth twice a day, continue hydrochlorothiazide 12.5 mg daily. Add Coreg 6.25 BID 10/10/17 - 2 D Echo to evaluate cardiac murmur-Normal EF Trace MR/TR GI: - IV Protonix 40 mg daily-change to PO - Bedside swallow and clear liquid diet. Advance diet per speech rec - Speech evaluation : - Monitor renal function closely. Chen catheter. ID: History of recurrent UTI - Resume cephalexin 250 daily for UTI prophylaxis HEME: - Monitor CBC, CMP, coags ENDO: - Sliding-scale insulin - Electrolyte replacement per protocol PROPH: - Bilateral lower extremity SCDs/ESTIVEN. IV Protonix 40 mg daily. LINES: - Utilize peripheral IVs, central line if needed Level 3 Discussed with . Due to worsening headache, and still poorly controlled hypertension continue ICU care Shine Cali MD Oct 10, 2017 12:56
[2017-10-10] MEDS: PANTOPRAZOLE SOD 40 MG DELAYED RELEASE TAB PO SCH (13:00)
[2017-10-10] MEDS: HYDROmorphone HCL PF 1 MG/ML VIAL IV PUSH PRN ×2 (13:27→21:23)
[2017-10-10] MEDS: CARVEDILOL 6.25 MG TAB PO SCH ×2 (14:37→21:13)
[2017-10-10] MEDS: ONDANSETRON HCL 4 MG/2 ML VIAL IV PUSH PRN (19:49)
[2017-10-10] MEDS: SODIUM CHLORIDE 0.9% FLUSH 10 ML FLUSH IV FLUSH SCH (19:49)
[2017-10-10] MEDS: CEPHALEXIN MONOHYDRATE 250 MG CAP PO SCH (21:12)
[2017-10-10] MEDS: LORazepam 2 MG/ML VIAL IV PUSH PRN (21:13)
[2017-10-10] MEDS: hydrALAZINE HCL 20 MG/ML VIAL IV PUSH PRN (23:59)
[2017-10-11] VITALS (14 sets, daily range): BP systolic 109–146; BP diastolic 59–85; PULSE 84–104; RESP 16–27; TEMP 98.2–100.5; O2SAT 94–98
[2017-10-11] MEDS: NS + KCL 20 MEQ INJ 1,000 ML IV SCH ×2 (02:06→12:42)
[2017-10-11] MEDS: CHLORHEXIDINE GLUCONATE 2 % 1 PACK (2 CLOTHS) TOP SCH (04:00)
[2017-10-11 05:14] LABS: AUTOMATED NEUTROPHIL # 6.8 TH/MM3 (1.8-7.7); BASOPHIL % 0.3 % (0.0-2.0); EOSINOPHIL # 0.2 TH/MM3 (0-0.4); EOSINOPHIL % 2.1 % (0.0-4.0); HEMATOCRIT 40.5 % (35.0-46.0); HEMO FLAGS DIFF FINAL; LYMPH % 16.3 % (9.0-44.0); LYMPHOCYTE # 1.6 TH/MM3 (1.0-4.8); MEAN CELL VOLUME 89.3 FL (80.0-100.0); MEAN CORPUSCULAR HEMOGLOBIN 29.9 PG (27.0-34.0); MEAN CORPUSCULAR HGB CONC 33.5 % (32.0-36.0); MONO % 10.8 % (0.0-8.0); NEUT % 70.5 % (16.0-70.0); PLATELET COUNT 253 TH/MM3 (150-450); RED BLOOD COUNT 4.53 MIL/MM3 (4.00-5.30); RED CELL DISTRIBUTION WIDTH 13.8 % (11.6-17.2); WHITE BLOOD COUNT 9.6 TH/MM3 (4.0-11.0)
[2017-10-11 05:42] LABS: ANION GAP 7 MEQ/L (5-15); AST (GOT) 14 U/L (15-37); BICARBONATE 29.9 MEQ/L (21.0-32.0); BLOOD UREA NITROGEN 13 MG/DL (7-18); CHLORIDE 98 MEQ/L (98-107); GLOMERULAR FILTRATION RATE 83 ML/MIN (>89); POTASSIUM 3.9 MEQ/L (3.5-5.1); SODIUM (NA) 135 MEQ/L (136-145)
[2017-10-11 05:43] LABS: ALKALINE PHOSPHATASE 53 U/L (45-117); ALT (GPT) 12 U/L (10-53); TOTAL BILIRUBIN ADULT 0.5 MG/DL (0.2-1.0)
[2017-10-11] MEDS: hydrALAZINE HCL 20 MG/ML VIAL IV PUSH PRN (06:26)
[2017-10-11] MEDS: ONDANSETRON HCL 4 MG/2 ML VIAL IV PUSH PRN ×3 (06:46→20:35)
[2017-10-11] MEDS: SODIUM CHLORIDE 0.9% FLUSH 10 ML FLUSH IV FLUSH SCH ×2 (06:47→20:36)
[2017-10-11] MEDS: oxyCODONE/ACETAMINOPHEN 7.5 MG/325 MG TAB PO PRN ×2 (06:47→13:16)
[2017-10-11] MEDS: PANTOPRAZOLE SOD 40 MG DELAYED RELEASE TAB PO SCH (09:14)
[2017-10-11] MEDS: DOCUSATE SODIUM 50 MG/SENNA 8.6 MG TAB PO SCH ×2 (09:14→20:36)
[2017-10-11] MEDS: CARVEDILOL 6.25 MG TAB PO SCH ×2 (09:14→20:36)
[2017-10-11] MEDS: HYDROCHLOROTHIAZIDE 12.5 MG CAP PO SCH (09:14)
[2017-10-11] MEDS: ENALAPRIL MALEATE 10 MG TAB PO SCH ×2 (09:15→20:36)
--- NOTE | 2017-10-11 09:48 | HHI.NSPN ---
(Raman Ferrell) History Chief Complaint: Fronal headaches, ICH. (Raman Ferrell) Interval History This is a 57-year-old female who was visiting her son in the hospital when she had an abrupt onset of left-sided hemiplegia and neglect and reportedly some twitching and shaking in the right side, but these were not related as seizures. She has a dysarthric and slurred speech and confusion along with complaints of headache. She was taken to the emergency room where she was very hypertensive with an initial blood pressure of 215/112 at one point. Her hypertension was regulated and CT scan of the head obtained that reveals a 3.2 cm right basal ganglia hemorrhage. The ventricles are small and not dilated and there is no intraventricular hemorrhage noted. She was admitted to the surgical intensive care unit for hemodynamic and neurologic monitoring. Subsequent CT angiogram of the brain as well as the carotids has also been obtained and no underlying aneurysm or vascular abnormality is noted with some areas of focal stenosis in the right anterior cerebral artery. The patient is lethargic and has also received some Ativan for shivers and shakes but is easily arousable. A detailed history is difficult to obtain from her. 10/08/17: Awake and alert. Complains of frontal headaches. Nausea but no vomiting today. Left hemiparesis pt states improved some. 10/09/17: Complains of frontal headache and nausea no vomiting. Left hemiparesis stable. 10/10/17: Pt awakens to voice. States headaches improved today. No nausea but poor po intake. Left hemiparesis. Pt back on Cardene drip. 10/11/17: Pt awakens to voice, complains of frontal headaches. Intermittent nausea. Left hemiparesis stable. (Raman Ferrell) Review of Systems General: Negative for: fever, chills, insomnia Respiratory: Negative for: shortness of breath, cough, sputum Cardiovascular: Negative for: chest pain Gastrointestinal: Positive for: nausea, Negative for: vomitting, diarrhea, constipation (Raman Ferrell) Exam Results Vital Signs Date Time Temp Pulse Resp B/P (MAP) Pulse Ox O2 Delivery O2 Flow Rate FiO2 10/11/17 08:38 94 21 10/11/17 08:00 100.2 104 16 109/59 (76) 10/11/17 00:18 Nasal Cannula 2.00 Intake and Output 10/11/17 10/11/17 10/12/17 08:00 16:00 00:00 Intake Total 50 ml Output Total 1626 ml Balance -1576 ml (Raman Ferrell) Physical Examination General: Pt resting comfortably in bed in NAD. Eyes: Pupils equal. Sclera anicteric. Resp: CTA bilaterally Heart: NSR no murmurs Abd: Soft positive bs Skin: No cyanosis or erythema Muscle: Left hemiparesis. Moves right side well. Neuro: Pt awake and alert. Pupils 3mm bilaterally reactive bilaterally. Left facial paresis. Follows simple commands. Speech clear and appropriate. (Raman Ferrell) Lab, Micro, Other Results Last Impressions Brain MRI 10/09/17 0000 Signed Impressions: Service Date/Time: Monday, October 09, 2017 10:58 - CONCLUSION: Large right posterior sylvian hematoma with evidence of both methemoglobin and deoxyhemoglobin. No focal abnormal areas of enhancement. Slight increase in midline shift towards the left, now measuring 6 mm (previously measured 4 mm). Aamir Diallo MD Head CT 10/08/17 0600 Signed Impressions: Service Date/Time: Sunday, October 08, 2017 04:04 - CONCLUSION: No significant change. Matthew Hutchison MD Neck CTA 10/07/17 0000 Signed Impressions: Service Date/Time: Saturday, October 07, 2017 12:57 - CONCLUSION: Normal examination. Bovine origin of the great vessels. Vic Serna MD Head CTA 10/07/17 0000 Signed Impressions: Service Date/Time: Saturday, October 07, 2017 12:57 - CONCLUSION: Somewhat unusual anatomy involving the right internal carotid bifurcation. 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 No evidence of aneurysm or etiology for subarachnoid hemorrhage is seen. Vic Serna MD Laboratory Tests Test 10/11/17 04:15 White Blood Count 9.6 TH/MM3 Red Blood Count 4.53 MIL/MM3 Hemoglobin 13.6 GM/DL Hematocrit 40.5 % Mean Corpuscular Volume 89.3 FL Mean Corpuscular Hemoglobin 29.9 PG Mean Corpuscular Hemoglobin Concent 33.5 % Red Cell Distribution Width 13.8 % Platelet Count 253 TH/MM3 Mean Platelet Volume 9.1 FL Neutrophils (%) (Auto) 70.5 % Lymphocytes (%) (Auto) 16.3 % Monocytes (%) (Auto) 10.8 % Eosinophils (%) (Auto) 2.1 % Basophils (%) (Auto) 0.3 % Neutrophils # (Auto) 6.8 TH/MM3 Lymphocytes # (Auto) 1.6 TH/MM3 Monocytes # (Auto) 1.0 TH/MM3 Eosinophils # (Auto) 0.2 TH/MM3 Basophils # (Auto) 0.0 TH/MM3 CBC Comment DIFF FINAL Differential Comment Blood Urea Nitrogen 13 MG/DL Creatinine 0.72 MG/DL Random Glucose 96 MG/DL Total Protein 6.1 GM/DL Albumin 3.2 GM/DL Calcium Level 8.4 MG/DL Magnesium Level 2.0 MG/DL Alkaline Phosphatase 53 U/L Aspartate Amino Transf (AST/SGOT) 14 U/L Alanine Aminotransferase (ALT/SGPT) 12 U/L Total Bilirubin 0.5 MG/DL Sodium Level 135 MEQ/L Potassium Level 3.9 MEQ/L Chloride Level 98 MEQ/L Carbon Dioxide Level 29.9 MEQ/L Anion Gap 7 MEQ/L Estimat Glomerular Filtration Rate 83 ML/MIN (Raman Ferrell) Medical Decision Making Impression and Plan A: 1. 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 Follow up CT head without significant progression. 2. Unregulated hypertension 3. Recurrent urinary tract infection on prophylactic antibiotic therapy. PLAN Continue with close neuro checks. Continue with blood pressure control to avoid rebleed and clinical deterioration. Pt off Cardene drip today. Rehab efforts to improve left hemiparesis. (Raman Ferrell) Attending Statement The exam, history, and the medical decision-making described in the above note were completed with the assistance of the mid-level provider. I reviewed and agree with the findings presented. I attest that I had a [id number] encounter with the patient on the same day, and personally performed and documented my assessment and findings in the medical record. Off Cardene drip and hypertension regulated. Stable neurologic examination. Continue with the close monitoring and hypertension regulation. Discussed with who wants to transfer her to [facility] for rehabilitation once medically stable where she is currently residing with her parents. We will have family caseworker look into this. Discussed with rubber tire curer Dr. Cali. (Alejandro Fitzgerald MD) Raman Ferrell Oct 11, 2017 09:48 Alejandro Fitzgerald MD Oct 11, 2017 17:42
--- NOTE | 2017-10-11 10:15 | HHI.CCPN ---
Subjective Remarks/Hospital Course Patient is a 57-year-old female with past medical history significant for hypertension currently off medication, recurrent UTI on Keflex for prophylaxis. She was visiting her son who is admitted in the hospital and had abrupt onset of headache with left-sided hemiplegia. A stroke alert was initiated and patient was moved to the emergency department. A stat CT of the head showed moderate-sized, approximately 3.0 x 3.2 cm, right basal ganglia hemorrhage with mass effect on the right lateral ventricle. Blood work was unremarkable and coags were negative. Initial blood pressure was 190-200 systolic and patient was started on Cardene infusion. Dr. King neurology and Dr. Fitzgerald neurosurgery had been contacted and consulted by ED I evaluated the patient in the emergency department. Patient appears anxious but able to talk normally she has flaccid paralysis of the left side of body with left hemisensory loss. CT of the head was personally reviewed. Titrate Cardene to keep systolic blood pressure less than 150 and also add when necessary labetalol. Ativan when necessary for twitching of the lower extremity. I doubt any surgical intervention is warranted at this time. CTA of brain to rule aneurysm SUBJ 10/08/17: Lying in bed able to talk normally. Left hemiparesis has shown significant improvement. CT of the head stable. We'll start by mouth antihypertensives with enalapril and hydrochlorothiazide. 10/09: Off Cardene as of now. Will discontinue. Increase enalapril to 20 BID. Resume Cephalexin for UTI prophylaxis. Up to chair. MRI ordered by Dr. King 10/10: BP control improved, but intermittently hypertensive. Lethargic with 1.5 Dilaudid will reduce to 1 mg when necessary. Speech appears normal except for few word finding difficulties 10/11: Appears slightly somnolent today, but her exam remains unchanged. Blood pressure control is much improved. Sodium is 135, I will add sodium chloride tablets and discontinue hydrochlorothiazide. I have also reduced when necessary Dilaudid to 0.5 mg IV every 4 hours for breakthrough pain Objective Vital Signs Date Time Temp Pulse Resp B/P (MAP) Pulse Ox O2 Delivery O2 Flow Rate FiO2 10/11/17 08:38 94 21 10/11/17 08:00 100.2 104 16 109/59 (76) 10/11/17 00:18 Nasal Cannula 2.00 Intake and Output 10/11/17 10/11/17 10/12/17 08:00 16:00 00:00 Intake Total 50 ml Output Total 1626 ml Balance -1576 ml Result Diagram: 10/11/1741410/11/[address] of the head: Moderate-sized, approximately 3.0 x 3.2 cm, right basal ganglia hemorrhage with mass effect on the right lateral ventricle Objective Remarks GENERAL: 57 year-old woman, lying in the ICU bed, slightly somnolent SKIN: Warm/dry. HEAD: Atraumatic. Normocephalic. EYES: Pupils equal and round. No scleral icterus. No injection or drainage. ENT: No nasal bleeding or discharge. Mucous membranes pink and moist. Left facial droop NECK: Trachea midline. No JVD. CARDIOVASCULAR: Regular rate and rhythm. Grade 2 systolic murmur heard in the apex and lower left sternal border RESPIRATORY: No accessory muscle use. Clear to auscultation. Breath sounds equal bilaterally. GASTROINTESTINAL: Abdomen soft, non-tender, nondistended. Hepatic and splenic margins not palpable. Well-healed midline scar in the lower abdomen MUSCULOSKELETAL: No clubbing. No cyanosis. No edema. NEUROLOGICAL: Awake and alert, normal speech. Left facial droop. 4/5 strength left upper and lower extremity. Left hemisensory loss A/P Assessment and Plan PLAN: NEURO: Moderate-sized, right basal ganglia hemorrhage 3.0 x 3.2 cm Left hemiparesis - CT of the head: moderate sixed right BG hemorrhage with mass effect on right lateral ventricle - Repeat CT of the head stable hemorrhage. CTA of the head and neck negative for aneurysm, focal stenosis at origin of Right JAYSON. No intervention needed at this time per Dr. Fitzgerald - MRI 10/09- subacute hematoma in the right posterior sylvian region 5.0 x 1.7 cm. Moderate cerebral edema. 6 mm midline shift to left - Neurosurgery Dr. Fitzgerald. Continue conservative management - PT/OT/Speech - C/o severe head ache- f/u MRI of brain. Use PRN Dilaudid and oxycodone - Start 2% saline to keep Na above 140 RESP: - DuoNeb every 6 hours when necessary - Aggressive pulmonary toilet CV: Hypertensive emergency History of hypertension Cardiac murmur - Off Cardene infusion. IV labetalol 20 mg every 6 hours when necessary for SBP more than 160 - Normal saline gtt. 2% saline at 30 ml per hour - Enalapril to 20 mg by mouth twice a day, Coreg 6.25 BID 10/10/17. - DC HCTZ due to hyponatremia - 2 D Echo to evaluate cardiac murmur-Normal EF Trace MR/TR GI: - Protonix 40 mg daily, regular diet : - Monitor renal function closely. Chen catheter. ID: History of recurrent UTI - Cephalexin 250 daily for UTI prophylaxis HEME: - Monitor CBC, CMP, coags ENDO: - Sliding-scale insulin - Electrolyte replacement per protocol PROPH: - Bilateral lower extremity SCDs/ESTIVEN. Protonix 40 mg daily. - Start Lovenox when cleared by N/S. increase mobility LINES: - Utilize peripheral IVs, central line if needed Level 3 Continue ICU care due large ICH, and need for 2% saline to correct hyponatremia Shine Cali MD Oct 11, 2017 10:15
[2017-10-11] MEDS: SODIUM CHLORIDE 23.4% INJ 188 MEQ in SODIUM CHLOR 0.9% 1000 ML INJ 1,000 ML IV SCH (11:05)
[2017-10-11] MEDS: SODIUM CHLORIDE 1 GRAM TAB PO SCH ×2 (11:05→20:36)
[2017-10-11] MEDS: HYDROmorphone HCL PF 0.5 MG/0.5 ML SYRINGE IV PUSH PRN ×3 (11:47→20:35)
[2017-10-11] MEDS: CEPHALEXIN MONOHYDRATE 250 MG CAP PO SCH (20:36)
[2017-10-12] VITALS (10 sets, daily range): BP systolic 114–165; BP diastolic 63–88; PULSE 84–104; RESP 14–24; TEMP 98.2–98.7; O2SAT 97–100
[2017-10-12] MEDS: LORazepam 2 MG/ML VIAL IV PUSH PRN ×2 (01:09→23:10)
[2017-10-12] MEDS: HYDROmorphone HCL PF 0.5 MG/0.5 ML SYRINGE IV PUSH PRN ×4 (01:09→20:32)
[2017-10-12] MEDS: CHLORHEXIDINE GLUCONATE 2 % 1 PACK (2 CLOTHS) TOP SCH (04:00)
[2017-10-12] MEDS: SODIUM CHLORIDE 23.4% INJ 188 MEQ in SODIUM CHLOR 0.9% 1000 ML INJ 1,000 ML IV SCH ×2 (06:10→23:30)
[2017-10-12] MEDS: CARVEDILOL 6.25 MG TAB PO SCH ×2 (08:21→20:31)
[2017-10-12] MEDS: DOCUSATE SODIUM 50 MG/SENNA 8.6 MG TAB PO SCH ×2 (08:22→20:31)
[2017-10-12] MEDS: PANTOPRAZOLE SOD 40 MG DELAYED RELEASE TAB PO SCH (08:22)
[2017-10-12] MEDS: ENALAPRIL MALEATE 10 MG TAB PO SCH ×2 (08:22→20:31)
[2017-10-12] MEDS: SODIUM CHLORIDE 1 GRAM TAB PO SCH ×2 (08:22→20:33)
[2017-10-12] MEDS: SODIUM CHLORIDE 0.9% FLUSH 10 ML FLUSH IV FLUSH SCH ×2 (08:22→20:33)
[2017-10-12] MEDS: hydrALAZINE HCL 20 MG/ML VIAL IV PUSH PRN ×2 (08:45→16:16)
[2017-10-12] MEDS: LABETALOL HCL 100 MG/20 ML VIAL IV PUSH PRN ×2 (09:00→16:03)
--- NOTE | 2017-10-12 09:05 | HHI.PR ---
Review/Management Diagnosis right basal ganglia hemorrhage---probably hypertensive Plan continue BP control,neuro checks---exam is stable Diagnosis/Plan: Subjective Subjective Comments No acute events reported Headache improving Active Medications Current Medications Medications (Trade) Dose Ordered Sig/Ermelinda Route Start Time Stop Time Status Last Admin (NS Flush) 2 ml UNSCH PRN IV FLUSH 10/07/17 08:45 (NS Flush) 2 ml BID IV FLUSH 10/07/17 09:00 10/12/17 08:22 (Duoneb Neb) 1 ampule Q2HR NEB PRN INH 10/07/17 08:45 Miscellaneous Information 1 Q361D XX 10/07/17 08:45 10/07/17 08:45 (Chlorhexidine 2% Cloth) 3 pack Taper DAILY@04 TOP 10/08/17 04:00 10/04/18 03:59 10/11/17 04:00 (Chlorhexidine 2% Cloth) 3 pack UNSCH PRN TOP 10/07/17 08:45 (Sangita-Colace) 1 tab BID PO 10/07/17 09:00 10/12/17 08:22 (Milk Of Magnesia Liq) 30 ml Q12H PRN PO 10/07/17 08:45 (Senokot) 17.2 mg Q12H PRN PO 10/07/17 08:45 (Dulcolax Supp) 10 mg DAILY PRN RECTAL 10/07/17 08:45 (Lactulose Liq) 30 ml DAILY PRN PO 10/07/17 08:45 (Trandate Inj) 20 mg Q4H PRN IV PUSH 10/07/17 08:45 10/10/17 05:27 Potassium Chloride 100 ml @ 50 mls/hr Q2H PRN IV 10/07/17 09:00 Potassium Chloride 100 ml @ 50 mls/hr Q2H PRN IV 10/07/17 09:00 (K-Lyte Cl Eff) 50 meq UNSCH PRN PO 10/07/17 09:00 Potassium Chloride 100 ml @ 25 mls/hr UNSCH PRN IV 10/07/17 09:00 10/12/17 02:18 Potassium Chloride 100 ml @ 50 mls/hr Q2H PRN IV 10/07/17 09:00 Magnesium Sulfate 4 gm/Sodium Chloride 100 ml @ 50 mls/hr UNSCH PRN IV 10/07/17 09:00 (Mag-Ox) 800 mg UNSCH PRN PO 10/07/17 09:00 Magnesium Sulfate 2 gm/Sodium Chloride 100 ml @ 50 mls/hr UNSCH PRN IV 10/07/17 09:00 (K-Phos) 2,000 mg Q4H PRN PO 10/07/17 09:00 Sodium Phosphate 30 mmol/Sodium Chloride 250 ml @ 42 mls/hr UNSCH PRN IV 10/07/17 09:00 (K-Phos) 2,000 mg UNSCH PRN PO/TUBE 10/07/17 09:00 Potassium Phosphate 30 mmol/ Sodium Chloride 260 ml @ 42 mls/hr UNSCH PRN IV 10/07/17 09:00 (Ativan Inj) 0.5 mg Q4H PRN IV PUSH 10/07/17 10:30 10/12/17 01:09 (Zofran Inj) 4 mg Q6HR PRN IV PUSH 10/07/17 21:15 10/11/17 20:35 (Percocet 7.5-325 Mg) 1 tab Q6H PRN PO 10/08/17 12:15 10/11/17 13:16 (Keflex) 250 mg HS PO 10/09/17 21:00 10/11/17 20:36 (Vasotec) 20 mg BID PO 10/09/17 21:00 10/12/17 08:22 (Apresoline Inj) 20 mg Q4H PRN IV PUSH 10/09/17 17:15 10/12/17 08:45 Nicardipine HCl 25 mg/Sodium Chloride 250 ml @ 50 mls/hr TITRATE PRN IV 10/09/17 17:15 10/10/17 03:52 (Coreg) 6.25 mg Q12HR PO 10/10/17 12:30 10/12/17 08:21 (Protonix) 40 mg DAILY PO 10/10/17 13:00 10/12/17 08:22 (Sodium Chloride) 1 gm Q12HR PO 10/11/17 10:15 10/12/17 08:22 (Dilaudid Pf Inj) 0.5 mg Q4H PRN IV PUSH 10/11/17 13:30 10/12/17 08:56 Sodium Chloride 188 meq/Sodium Chloride 1,047 ml @ 60 mls/hr [id number] IV 10/11/17 10:30 10/12/17 06:10 Allergies Allergies Coded Allergies Unable to Assess (Verified Allergy, Unknown, 10/07/17) Exam I&O / VS Vital Signs Date Time Temp Pulse Resp B/P (MAP) Pulse Ox O2 Delivery O2 Flow Rate FiO2 10/12/17 08:54 98 21 10/12/17 04:00 92 10/12/17 04:00 98.4 88 24 131/71 (91) 97 10/12/17 02:00 92 10/12/17 01:39 20 10/12/17 00:00 92 10/12/17 00:00 98.5 84 24 147/88 (107) 97 10/11/17 22:00 92 10/11/17 20:00 92 10/11/17 20:00 98.7 92 22 144/83 (103) 97 10/11/17 18:00 86 10/11/17 16:00 98.4 86 19 121/64 (83) 94 10/11/17 16:00 86 10/11/17 14:00 92 10/11/17 12:00 100.5 98 18 132/67 (88) 94 10/11/17 12:00 98 10/11/17 10:00 102 Exam Comments alert, speech normal, follows commands Cn intact pupils 2 mm symmetric and reactive MOTOR 4+/5 LUE and LLE Objective Micro and Labs Laboratory Tests Test 10/11/17 16:18 10/11/17 22:45 10/12/17 04:05 Sodium Level 135 138 140 Alvin King PhD MD Oct 12, 2017 09:05
[2017-10-12] MEDS: oxyCODONE/ACETAMINOPHEN 7.5 MG/325 MG TAB PO PRN ×3 (09:48→22:02)
--- NOTE | 2017-10-12 09:56 | HHI.NSPN ---
(Raman Ferrell) History Chief Complaint: Fronal headaches, ICH. (Raman Ferrell) Interval History This is a 57-year-old female who was visiting her son in the hospital when she had an abrupt onset of left-sided hemiplegia and neglect and reportedly some twitching and shaking in the right side, but these were not related as seizures. She has a dysarthric and slurred speech and confusion along with complaints of headache. She was taken to the emergency room where she was very hypertensive with an initial blood pressure of 215/112 at one point. Her hypertension was regulated and CT scan of the head obtained that reveals a 3.2 cm right basal ganglia hemorrhage. The ventricles are small and not dilated and there is no intraventricular hemorrhage noted. She was admitted to the surgical intensive care unit for hemodynamic and neurologic monitoring. Subsequent CT angiogram of the brain as well as the carotids has also been obtained and no underlying aneurysm or vascular abnormality is noted with some areas of focal stenosis in the right anterior cerebral artery. The patient is lethargic and has also received some Ativan for shivers and shakes but is easily arousable. A detailed history is difficult to obtain from her. 10/08/17: Awake and alert. Complains of frontal headaches. Nausea but no vomiting today. Left hemiparesis pt states improved some. 10/09/17: Complains of frontal headache and nausea no vomiting. Left hemiparesis stable. 10/10/17: Pt awakens to voice. States headaches improved today. No nausea but poor po intake. Left hemiparesis. Pt back on Cardene drip. 10/11/17: Pt awakens to voice, complains of frontal headaches. Intermittent nausea. Left hemiparesis stable. 10/12/17: Pt awake. She is very frustrated and agitated this morning. Poor insight into her current condition, wants to go home. Complains of headaches. Pt off Cardene but requiring IV antihypertensives. (Raman Ferrell) Review of Systems General: Negative for: fever, chills, insomnia Respiratory: Negative for: shortness of breath, cough, sputum Cardiovascular: Negative for: chest pain Gastrointestinal: Negative for: nausea, vomitting, diarrhea, constipation ( Raman Ferrell) Exam Results Vital Signs Date Time Temp Pulse Resp B/P (MAP) Pulse Ox O2 Delivery O2 Flow Rate FiO2 10/12/17 08:54 98 21 10/12/17 08:00 98.7 92 16 143/76 (98) 10/11/17 00:18 Nasal Cannula 2.00 (Raman Ferrell) Physical Examination General: Pt resting comfortably in bed in NAD. Eyes: Pupils equal. Sclera anicteric. Resp: CTA bilaterally Heart: NSR no murmurs Abd: Soft positive bs Skin: No cyanosis or erythema Muscle: Left hemiparesis. Moves right side well 5/5. Neuro: Pt awake and alert. Pupils 3mm bilaterally reactive bilaterally. Left facial paresis. Follows simple commands. Speech clear and appropriate. Agitated this morning. (Raman Ferrell) Lab, Micro, Other Results Last Impressions Brain MRI 10/09/17 0000 Signed Impressions: Service Date/Time: Monday, October 09, 2017 10:58 - CONCLUSION: Large right posterior sylvian hematoma with evidence of both methemoglobin and deoxyhemoglobin. No focal abnormal areas of enhancement. Slight increase in midline shift towards the left, now measuring 6 mm (previously measured 4 mm). Aamir Diallo MD Head CT 10/08/17 0600 Signed Impressions: Service Date/Time: Sunday, October 08, 2017 04:04 - CONCLUSION: No significant change. Matthew Hutchison MD Neck CTA 10/07/17 0000 Signed Impressions: Service Date/Time: Saturday, October 07, 2017 12:57 - CONCLUSION: Normal examination. Bovine origin of the great vessels. Vic Serna MD Head CTA 10/07/17 0000 Signed Impressions: Service Date/Time: Saturday, October 07, 2017 12:57 - CONCLUSION: Somewhat unusual anatomy involving the right internal carotid bifurcation. 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 No evidence of aneurysm or etiology for subarachnoid hemorrhage is seen. Vic Serna MD Laboratory Tests Test 10/11/17 16:18 10/11/17 22:45 10/12/17 04:05 Sodium Level 135 MEQ/L 138 MEQ/L 140 MEQ/L (Raman Ferrell) Medical Decision Making Impression and Plan A: 1. 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 Follow up CT head without significant progression. 2. Unregulated hypertension 3. Recurrent urinary tract infection on prophylactic antibiotic therapy. PLAN Continue with close neuro checks. Continue with blood pressure control to avoid rebleed and clinical deterioration. Pt off Cardene drip, but requiring IV prn. Rehab efforts to improve left hemiparesis. Discussed with pt trying to not get agitated and frustrated as this could be contributing her he labile bp. (Raman Ferrell) Attending Statement The exam, history, and the medical decision-making described in the above note were completed with the assistance of the mid-level provider. I reviewed and agree with the findings presented. I attest that I had a [id number] encounter with the patient on the same day, and personally performed and documented my assessment and findings in the medical record. Stable examination. Sitting up in a chair and conversing with . Plan on acute inpatient rehabilitation placement once medically stable. Chemical and mechanical DVT prophylaxis. (Alejandro Fitzgerald MD) Raman Ferrell Oct 12, 2017 09:56 Alejandro Fitzgerald MD Oct 12, 2017 12:26
--- NOTE | 2017-10-12 15:10 | HHI.CCPN ---
Subjective Remarks/Hospital Course Patient is a 57-year-old female with past medical history significant for hypertension currently off medication, recurrent UTI on Keflex for prophylaxis. She was visiting her son who is admitted in the hospital and had abrupt onset of headache with left-sided hemiplegia. A stroke alert was initiated and patient was moved to the emergency department. A stat CT of the head showed moderate-sized, approximately 3.0 x 3.2 cm, right basal ganglia hemorrhage with mass effect on the right lateral ventricle. Blood work was unremarkable and coags were negative. Initial blood pressure was 190-200 systolic and patient was started on Cardene infusion. Dr. King neurology and Dr. Fitzgerald neurosurgery had been contacted and consulted by ED I evaluated the patient in the emergency department. Patient appears anxious but able to talk normally she has flaccid paralysis of the left side of body with left hemisensory loss. CT of the head was personally reviewed. Titrate Cardene to keep systolic blood pressure less than 150 and also add when necessary labetalol. Ativan when necessary for twitching of the lower extremity. I doubt any surgical intervention is warranted at this time. CTA of brain to rule aneurysm SUBJ 10/08/17: Lying in bed able to talk normally. Left hemiparesis has shown significant improvement. CT of the head stable. We'll start by mouth antihypertensives with enalapril and hydrochlorothiazide. 10/09: Off Cardene as of now. Will discontinue. Increase enalapril to 20 BID. Resume Cephalexin for UTI prophylaxis. Up to chair. MRI ordered by Dr. King 10/10: BP control improved, but intermittently hypertensive. Lethargic with 1.5 Dilaudid will reduce to 1 mg when necessary. Speech appears normal except for few word finding difficulties 10/11: Appears slightly somnolent today, but her exam remains unchanged. Blood pressure control is much improved. Sodium is 135, I will add sodium chloride tablets and discontinue hydrochlorothiazide. I have also reduced when necessary Dilaudid to 0.5 mg IV every 4 hours for breakthrough pain. 10/02: Remains somnolent. Objective Vital Signs Date Time Temp Pulse Resp B/P (MAP) Pulse Ox O2 Delivery O2 Flow Rate FiO2 10/12/17 12:00 101 10/12/17 12:00 98.3 16 114/63 (80) 100 10/12/17 08:54 21 10/11/17 00:18 Nasal Cannula 2.00 Result Diagram: 10/11/17 0415 10/12/[address] of the head: Moderate-sized, approximately 3.0 x 3.2 cm, right basal ganglia hemorrhage with mass effect on the right lateral ventricle Objective Remarks GENERAL: 57 year-old woman, lying in the ICU bed, slightly somnolent SKIN: Warm/dry. HEAD: Atraumatic. Normocephalic. EYES: Pupils equal and round. No scleral icterus. No injection or drainage. ENT: No nasal bleeding or discharge. Mucous membranes pink and moist. Left facial droop NECK: Trachea midline. Airway widely patent. CARDIOVASCULAR: Regular rate and rhythm. Grade 2 systolic murmur heard in the apex and lower left sternal border RESPIRATORY: No accessory muscle use. Clear to auscultation. Breath sounds equal bilaterally. GASTROINTESTINAL: Abdomen soft, non-tender, nondistended. Hepatic and splenic margins not palpable. Well-healed midline scar in the lower abdomen MUSCULOSKELETAL: No clubbing. No cyanosis. No edema. NEUROLOGICAL: Awake and alert, normal speech. Left facial droop. 4/5 strength left upper and lower extremity. Left hemisensory loss A/P Assessment and Plan PLAN: NEURO: Moderate-sized, right basal ganglia hemorrhage 3.0 x 3.2 cm Left hemiparesis - CT of the head: moderate sixed right BG hemorrhage with mass effect on right lateral ventricle - Repeat CT of the head stable hemorrhage. CTA of the head and neck negative for aneurysm, focal stenosis at origin of Right JAYSON. No intervention needed at this time per Dr. Fitzgerald - MRI 10/09- subacute hematoma in the right posterior sylvian region 5.0 x 1.7 cm. Moderate cerebral edema. 6 mm midline shift to left - Neurosurgery Dr. Fitzgerald. Continue conservative management - PT/OT/Speech - C/o severe head ache- f/u MRI of brain. Use PRN Dilaudid and oxycodone - 2% saline to keep Na above 140 RESP: - DuoNeb every 6 hours when necessary - Aggressive pulmonary toilet CV: Hypertensive emergency History of hypertension Cardiac murmur - Off Cardene infusion. IV labetalol 20 mg every 6 hours when necessary for SBP more than 160 - Normal saline gtt. 2% saline at 30 ml per hour - Enalapril to 20 mg by mouth twice a day, Coreg 6.25 BID 10/10/17. - DC HCTZ due to hyponatremia - 2 D Echo to evaluate cardiac murmur-Normal EF Trace MR/TR GI: - Protonix 40 mg daily, regular diet : - Monitor renal function closely. Chen catheter. ID: History of recurrent UTI - Cephalexin 250 daily for UTI prophylaxis HEME: - Monitor CBC, CMP, coags ENDO: - Sliding-scale insulin - Electrolyte replacement per protocol PROPH: - Bilateral lower extremity SCDs/ESTIVEN. Protonix 40 mg daily. - Start Lovenox when cleared by N/S. increase mobility LINES: - Utilize peripheral IVs, central line if needed Overall impression: Continue ICU care due large ICH, and need for 2% saline to correct hyponatremia. Brian Bravo MD Oct 12, 2017 15:10
[2017-10-12] MEDS: ENOXAPARIN SODIUM 40 MG/0.4 ML SYRINGE SQ SCH (15:46)
[2017-10-12] MEDS: ONDANSETRON HCL 4 MG/2 ML VIAL IV PUSH PRN (20:32)
[2017-10-12] MEDS: CEPHALEXIN MONOHYDRATE 250 MG CAP PO SCH (20:32)
[2017-10-13] VITALS (9 sets, daily range): BP systolic 111–172; BP diastolic 56–89; PULSE 78–105; RESP 8–22; TEMP 98.1–98.5; O2SAT 98–100
[2017-10-13] MEDS: HYDROmorphone HCL PF 0.5 MG/0.5 ML SYRINGE IV PUSH PRN ×2 (01:22→08:15)
[2017-10-13] MEDS: CHLORHEXIDINE GLUCONATE 2 % 1 PACK (2 CLOTHS) TOP SCH (03:51)
[2017-10-13] MEDS: LABETALOL HCL 100 MG/20 ML VIAL IV PUSH PRN ×3 (03:52→12:05)
[2017-10-13] MEDS: hydrALAZINE HCL 20 MG/ML VIAL IV PUSH PRN ×2 (05:08→08:55)
[2017-10-13] MEDS: ONDANSETRON HCL 4 MG/2 ML VIAL IV PUSH PRN ×2 (08:15→14:32)
[2017-10-13] MEDS: oxyCODONE/ACETAMINOPHEN 7.5 MG/325 MG TAB PO PRN (08:18)
[2017-10-13] MEDS: DOCUSATE SODIUM 50 MG/SENNA 8.6 MG TAB PO SCH ×2 (08:22→20:10)
[2017-10-13] MEDS: SODIUM CHLORIDE 0.9% FLUSH 10 ML FLUSH IV FLUSH SCH ×2 (08:22→20:08)
[2017-10-13] MEDS: CARVEDILOL 6.25 MG TAB PO SCH (08:22)
[2017-10-13] MEDS: ENALAPRIL MALEATE 10 MG TAB PO SCH ×2 (08:22→20:08)
[2017-10-13] MEDS: PANTOPRAZOLE SOD 40 MG DELAYED RELEASE TAB PO SCH (08:22)
[2017-10-13] MEDS: SODIUM CHLORIDE 1 GRAM TAB PO SCH ×2 (08:22→20:10)
--- NOTE | 2017-10-13 09:20 | HHI.NSPN ---
(Raman Ferrell) History Chief Complaint: Fronal headaches, ICH. (Raman Ferrell) Interval History This is a 57-year-old female who was visiting her son in the hospital when she had an abrupt onset of left-sided hemiplegia and neglect and reportedly some twitching and shaking in the right side, but these were not related as seizures. She has a dysarthric and slurred speech and confusion along with complaints of headache. She was taken to the emergency room where she was very hypertensive with an initial blood pressure of 215/112 at one point. Her hypertension was regulated and CT scan of the head obtained that reveals a 3.2 cm right basal ganglia hemorrhage. The ventricles are small and not dilated and there is no intraventricular hemorrhage noted. She was admitted to the surgical intensive care unit for hemodynamic and neurologic monitoring. Subsequent CT angiogram of the brain as well as the carotids has also been obtained and no underlying aneurysm or vascular abnormality is noted with some areas of focal stenosis in the right anterior cerebral artery. The patient is lethargic and has also received some Ativan for shivers and shakes but is easily arousable. A detailed history is difficult to obtain from her. 10/08/17: Awake and alert. Complains of frontal headaches. Nausea but no vomiting today. Left hemiparesis pt states improved some. 10/09/17: Complains of frontal headache and nausea no vomiting. Left hemiparesis stable. 10/10/17: Pt awakens to voice. States headaches improved today. No nausea but poor po intake. Left hemiparesis. Pt back on Cardene drip. 10/11/17: Pt awakens to voice, complains of frontal headaches. Intermittent nausea. Left hemiparesis stable. 10/12/17: Pt awake. She is very frustrated and agitated this morning. Poor insight into her current condition, wants to go home. Complains of headaches. Pt off Cardene but requiring IV antihypertensives. 10/13/17: Pt awake. States she woke up with a frontal headache and nausea No paresthesias. Left hemiparesis improving. Pt was less agitated and anxious yesterday when came by. (Raman Ferrell) Review of Systems General: Negative for: fever, chills, insomnia Respiratory: Negative for: shortness of breath, cough, sputum Cardiovascular: Negative for: chest pain Gastrointestinal: Positive for: nausea, Negative for: vomitting, diarrhea, constipation (Raman Ferrell) Exam Results Vital Signs Date Time Temp Pulse Resp B/P (MAP) Pulse Ox O2 Delivery O2 Flow Rate FiO2 10/13/17 08:00 98.3 81 16 169/86 (113) 99 10/12/17 20:06 21 10/11/17 00:18 Nasal Cannula 2.00 Intake and Output 10/13/17 10/13/17 10/14/17 08:00 16:00 00:00 Intake Total 1340 ml Output Total 750 ml Balance 590 ml (Raman Ferrell) Physical Examination General: Pt resting comfortably in bed in NAD. Eyes: Pupils equal. Sclera anicteric. Resp: CTA bilaterally Heart: NSR no murmurs Abd: Soft positive bs Skin: No cyanosis or erythema Muscle: Left hemiparesis. Moves right side well 5/5. Neuro: Pt awake and alert. Pupils 3mm bilaterally reactive bilaterally. Left facial paresis. Follows simple commands. Speech clear and appropriate. Agitation improved this morning. (Raman Ferrell) Lab, Micro, Other Results Last Impressions Brain MRI 10/09/17 0000 Signed Impressions: Service Date/Time: Monday, October 09, 2017 10:58 - CONCLUSION: Large right posterior sylvian hematoma with evidence of both methemoglobin and deoxyhemoglobin. No focal abnormal areas of enhancement. Slight increase in midline shift towards the left, now measuring 6 mm (previously measured 4 mm). Aamir Diallo MD Head CT 10/08/17 0600 Signed Impressions: Service Date/Time: Sunday, October 08, 2017 04:04 - CONCLUSION: No significant change. Matthew Hutchison MD Neck CTA 10/07/17 0000 Signed Impressions: Service Date/Time: Saturday, October 07, 2017 12:57 - CONCLUSION: Normal examination. Bovine origin of the great vessels. Vic Serna MD Head CTA 10/07/17 0000 Signed Impressions: Service Date/Time: Saturday, October 07, 2017 12:57 - CONCLUSION: Somewhat unusual anatomy involving the right internal carotid bifurcation. 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 No evidence of aneurysm or etiology for subarachnoid hemorrhage is seen. Vic Serna MD Laboratory Tests Test 10/12/17 15:37 10/12/17 23:20 10/13/17 08:06 Sodium Level 139 MEQ/L 139 MEQ/L 140 MEQ/L (Raman Ferrell) Medical Decision Making Impression and Plan A: 1. 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 Follow up CT head without significant progression. 2. Unregulated hypertension 3. Recurrent urinary tract infection on prophylactic antibiotic therapy. PLAN Continue with close neuro checks. Continue with blood pressure control to avoid rebleed and clinical deterioration. Pt off Cardene drip, but requiring IV prn. Rehab efforts to improve left hemiparesis. (Raman Ferrell) Attending Statement The exam, history, and the medical decision-making described in the above note were completed with the assistance of the mid-level provider. I reviewed and agree with the findings presented. I attest that I had a [id number] encounter with the patient on the same day, and personally performed and documented my assessment and findings in the medical record. Headaches improved with increasing the Dilaudid and neurologic examination stable. Continue with medical management and subsequent rehabilitation placement. Updated at bedside. (Alejandro Fitzgerald MD) Raman Ferrell Oct 13, 2017 09:20 Alejandro Fitzgerald MD Oct 13, 2017 17:10
[2017-10-13] MEDS: HYDROmorphone HCL PF 1 MG/ML VIAL IV PUSH PRN ×2 (11:25→19:46)
--- NOTE | 2017-10-13 11:35 | HHI.CCPN ---
Subjective Remarks/Hospital Course Patient is a 57-year-old female with past medical history significant for hypertension currently off medication, recurrent UTI on Keflex for prophylaxis. She was visiting her son who is admitted in the hospital and had abrupt onset of headache with left-sided hemiplegia. A stroke alert was initiated and patient was moved to the emergency department. A stat CT of the head showed moderate-sized, approximately 3.0 x 3.2 cm, right basal ganglia hemorrhage with mass effect on the right lateral ventricle. Blood work was unremarkable and coags were negative. Initial blood pressure was 190-200 systolic and patient was started on Cardene infusion. Dr. King neurology and Dr. Fitzgerald neurosurgery had been contacted and consulted by ED I evaluated the patient in the emergency department. Patient appears anxious but able to talk normally she has flaccid paralysis of the left side of body with left hemisensory loss. CT of the head was personally reviewed. Titrate Cardene to keep systolic blood pressure less than 150 and also add when necessary labetalol. Ativan when necessary for twitching of the lower extremity. I doubt any surgical intervention is warranted at this time. CTA of brain to rule aneurysm SUBJ 10/08/17: Lying in bed able to talk normally. Left hemiparesis has shown significant improvement. CT of the head stable. We'll start by mouth antihypertensives with enalapril and hydrochlorothiazide. 10/09: Off Cardene as of now. Will discontinue. Increase enalapril to 20 BID. Resume Cephalexin for UTI prophylaxis. Up to chair. MRI ordered by Dr. King 10/10: BP control improved, but intermittently hypertensive. Lethargic with 1.5 Dilaudid will reduce to 1 mg when necessary. Speech appears normal except for few word finding difficulties 10/11: Appears slightly somnolent today, but her exam remains unchanged. Blood pressure control is much improved. Sodium is 135, I will add sodium chloride tablets and discontinue hydrochlorothiazide. I have also reduced when necessary Dilaudid to 0.5 mg IV every 4 hours for breakthrough pain. 10/12: Remains somnolent but opens eyes and is cooperative. 10/13: Follows commands. Headache is severe. Objective Vital Signs Date Time Temp Pulse Resp B/P (MAP) Pulse Ox O2 Delivery O2 Flow Rate FiO2 10/13/17 09:18 16 10/13/17 08:00 98.3 81 169/86 (113) 99 10/12/17 20:06 21 10/11/17 00:18 Nasal Cannula 2.00 Intake and Output 10/13/17 10/13/17 10/14/17 08:00 16:00 00:00 Intake Total 1340 ml Output Total 750 ml Balance 590 ml Result Diagram: 10/11/17 0415 10/13/[address] of the head: Moderate-sized, approximately 3.0 x 3.2 cm, right basal ganglia hemorrhage with mass effect on the right lateral ventricle Objective Remarks GENERAL: 57 year-old woman, lying in the ICU bed, slightly somnolent SKIN: Warm/dry. HEAD: Atraumatic. Normocephalic. EYES: Pupils equal and round. No scleral icterus. No injection or drainage. ENT: No nasal bleeding or discharge. Mucous membranes pink and moist. Left facial droop NECK: Trachea midline. Airway widely patent. CARDIOVASCULAR: Regular rate and rhythm. 2/6 systolic murmur apex and lower left sternal border RESPIRATORY: No accessory muscle use. Clear to auscultation. Breath sounds equal bilaterally. Comfortable. GASTROINTESTINAL: Abdomen soft, non-tender, nondistended. Hepatic and splenic margins not palpable. Well-healed midline scar in the lower abdomen MUSCULOSKELETAL: No clubbing. No cyanosis. No edema. NEUROLOGICAL: Awake and alert, normal speech. Left facial droop. 4/5 strength left upper and lower extremity. Left hemisensory loss A/P Assessment and Plan PLAN: NEURO: Moderate-sized, right basal ganglia hemorrhage 3.0 x 3.2 cm Left hemiparesis - CT of the head: moderate sixed right BG hemorrhage with mass effect on right lateral ventricle - Repeat CT of the head stable hemorrhage. CTA of the head and neck negative for aneurysm, focal stenosis at origin of Right JAYSON. No intervention needed at this time per Dr. Fitzgerald - MRI 10/09- subacute hematoma in the right posterior sylvian region 5.0 x 1.7 cm. Moderate cerebral edema. 6 mm midline shift to left - Neurosurgery Dr. Fitzgerald. Continue conservative management - PT/OT/Speech - C/o severe head ache- f/u MRI of brain. Use PRN Dilaudid and oxycodone - Hold 2% saline to keep Na above 140 RESP: - DuoNeb every 6 hours when necessary - Aggressive pulmonary toilet CV: Hypertensive emergency History of hypertension Cardiac murmur - Off Cardene infusion. IV labetalol 20 mg every 6 hours when necessary for SBP more than 160 - Normal saline gtt. 2% saline at 30 ml per hour - Enalapril to 20 mg by mouth twice a day, Coreg 6.25 BID 10/10/17 -> convert to lopressor for better rate control. - DC HCTZ due to hyponatremia - 2 D Echo to evaluate cardiac murmur-Normal EF Trace MR/TR - Add hydralazine scheduled PO (hopefully will not worsen tachycardia) GI: - Protonix 40 mg daily, regular diet : - Monitor renal function closely. Chen catheter. ID: History of recurrent UTI - Cephalexin 250 daily for UTI prophylaxis HEME: - Monitor CBC, CMP, coags ENDO: - Sliding-scale insulin - Electrolyte replacement per protocol PROPH: - Bilateral lower extremity SCDs/ESTIVEN. Protonix 40 mg daily. - Start Lovenox when cleared by N/S. increase mobility LINES: - Utilize peripheral IVs, central line if needed Overall impression: Continue ICU care due large ICH, hypertension, and intractable headache. Brian Bravo MD Oct 13, 2017 11:35
[2017-10-13] MEDS: METOPROLOL TARTRATE 25 MG TAB PO SCH ×2 (11:49→20:10)
[2017-10-13] MEDS: hydrALAZINE HCL 100 MG TAB PO SCH ×2 (11:49→20:10)
[2017-10-13] MEDS: guaiFENesin E.R. 600 MG TAB PO SCH ×2 (12:08→20:10)
[2017-10-13] MEDS: ENOXAPARIN SODIUM 40 MG/0.4 ML SYRINGE SQ SCH (14:31)
[2017-10-13] MEDS: PROMETHAZINE INJ 25 MG/ML VIAL IM PRN (15:05)
[2017-10-13] MEDS: SODIUM CHLORIDE 23.4% INJ 188 MEQ in SODIUM CHLOR 0.9% 1000 ML INJ 1,000 ML IV SCH (18:33)
--- NOTE | 2017-10-13 20:02 | HHI.PR ---
Review/Management Diagnosis right basal ganglia hemorrhage---probably hypertensive Diagnosis/Plan: Subjective Subjective Comments No acute events reported No headache Active Medications Current Medications Medications (Trade) Dose Ordered Sig/Ermelinda Route Start Time Stop Time Status Last Admin (NS Flush) 2 ml UNSCH PRN IV FLUSH 10/07/17 08:45 (NS Flush) 2 ml BID IV FLUSH 10/07/17 09:00 10/13/17 08:22 (Duoneb Neb) 1 ampule Q2HR NEB PRN INH 10/07/17 08:45 Miscellaneous Information 1 Q361D XX 10/07/17 08:45 10/07/17 08:45 (Chlorhexidine 2% Cloth) Taper DAILY@04 TOP 10/08/17 04:00 10/04/18 03:59 10/11/17 04:00 (Chlorhexidine 2% Cloth) 3 pack UNSCH PRN TOP 10/07/17 08:45 (Sangita-Colace) 1 tab BID PO 10/07/17 09:00 10/13/17 08:22 (Milk Of Magnesia Liq) 30 ml Q12H PRN PO 10/07/17 08:45 (Senokot) 17.2 mg Q12H PRN PO 10/07/17 08:45 (Dulcolax Supp) 10 mg DAILY PRN RECTAL 10/07/17 08:45 (Lactulose Liq) 30 ml DAILY PRN PO 10/07/17 08:45 (Trandate Inj) 20 mg Q4H PRN IV PUSH 10/07/17 08:45 10/13/17 12:05 Potassium Chloride 100 ml @ 50 mls/hr Q2H PRN IV 10/07/17 09:00 Potassium Chloride 100 ml @ 50 mls/hr Q2H PRN IV 10/07/17 09:00 (K-Lyte Cl Eff) 50 meq UNSCH PRN PO 10/07/17 09:00 Potassium Chloride 100 ml @ 25 mls/hr UNSCH PRN IV 10/07/17 09:00 10/12/17 02:18 Potassium Chloride 100 ml @ 50 mls/hr Q2H PRN IV 10/07/17 09:00 Magnesium Sulfate 4 gm/Sodium Chloride 100 ml @ 50 mls/hr UNSCH PRN IV 10/07/17 09:00 (Mag-Ox) 800 mg UNSCH PRN PO 10/07/17 09:00 Magnesium Sulfate 2 gm/Sodium Chloride 100 ml @ 50 mls/hr UNSCH PRN IV 10/07/17 09:00 (K-Phos) 2,000 mg Q4H PRN PO 10/07/17 09:00 Sodium Phosphate 30 mmol/Sodium Chloride 250 ml @ 42 mls/hr UNSCH PRN IV 10/07/17 09:00 (K-Phos) 2,000 mg UNSCH PRN PO/TUBE 10/07/17 09:00 Potassium Phosphate 30 mmol/ Sodium Chloride 260 ml @ 42 mls/hr UNSCH PRN IV 10/07/17 09:00 (Ativan Inj) 0.5 mg Q4H PRN IV PUSH 10/07/17 10:30 10/12/17 23:10 (Zofran Inj) 4 mg Q6HR PRN IV PUSH 10/07/17 21:15 10/13/17 14:32 (Percocet 7.5-325 Mg) 1 tab Q6H PRN PO 10/08/17 12:15 10/13/17 08:18 (Keflex) 250 mg HS PO 10/09/17 21:00 10/12/17 20:32 (Vasotec) 20 mg BID PO 10/09/17 21:00 10/13/17 08:22 (Apresoline Inj) 20 mg Q4H PRN IV PUSH 10/09/17 17:15 10/13/17 08:55 Nicardipine HCl 25 mg/Sodium Chloride 250 ml @ 50 mls/hr TITRATE PRN IV 10/09/17 17:15 10/10/17 03:52 (Protonix) 40 mg DAILY PO 10/10/17 13:00 10/13/17 08:22 (Sodium Chloride) 1 gm Q12HR PO 10/11/17 10:15 10/13/17 08:22 Sodium Chloride 188 meq/Sodium Chloride 1,047 ml @ 60 mls/hr [id number] IV 10/11/17 10:30 10/13/17 18:33 (Lovenox Inj) 40 mg Q24H SQ 10/12/17 15:00 10/13/17 14:31 (Lopressor) 25 mg Q12HR PO 10/13/17 11:30 10/13/17 11:49 (Dilaudid Pf Inj) 1 mg Q4H PRN IV PUSH 10/13/17 11:30 10/13/17 19:46 (Apresoline) 100 mg Q12HR PO 10/13/17 11:30 10/13/17 11:49 (Mucinex Er) 600 mg BID PO 10/13/17 12:00 10/13/17 12:08 (Phenergan Inj) 25 mg Q6H PRN IM 10/13/17 15:00 10/13/17 15:05 Allergies Allergies Coded Allergies Unable to Assess (Verified Allergy, Unknown, 10/07/17) Exam I&O / VS 10/13/17 10/13/17 10/14/17 14:59 22:59 06:59 Intake Total 1225 ml Output Total 1150 ml Balance 75 ml Intake Oral 600 ml IV Total 625 ml Output Urine Total 1150 ml # Bowel Movements 0 Vital Signs Date Time Temp Pulse Resp B/P (MAP) Pulse Ox O2 Delivery O2 Flow Rate FiO2 10/13/17 16:00 98.5 85 8 111/56 (74) 99 10/13/17 16:00 85 10/13/17 12:00 98.3 90 16 172/81 (111) 100 10/13/17 12:00 90 10/13/17 11:55 16 10/13/17 09:18 16 10/13/17 08:45 16 10/13/17 08:00 98.3 81 16 169/86 (113) 99 10/13/17 08:00 81 10/13/17 06:00 92 10/13/17 04:00 78 10/13/17 04:00 98.4 78 20 168/84 (112) 98 10/13/17 02:00 86 10/13/17 00:00 98.1 95 22 161/89 (113) 99 10/13/17 00:00 94 10/12/17 22:00 101 10/12/17 20:06 99 21 Exam Comments alert, speech normal, follows commands Cn intact pupils 2 mm symmetric and reactive MOTOR 4+/5 LUE and LLE Objective Micro and Labs Laboratory Tests Test 10/12/17 23:20 10/13/17 08:06 Sodium Level 139 140 Alvin King PhD MD Oct 13, 2017 20:02
[2017-10-13] MEDS: CEPHALEXIN MONOHYDRATE 250 MG CAP PO SCH (20:10)
[2017-10-14] VITALS (13 sets, daily range): BP systolic 117–170; BP diastolic 56–91; PULSE 82–111; RESP 12–18; TEMP 97.5–98.4; O2SAT 95–98
[2017-10-14] MEDS: hydrALAZINE HCL 20 MG/ML VIAL IV PUSH PRN ×2 (01:00→10:02)
[2017-10-14] MEDS: HYDROmorphone HCL PF 1 MG/ML VIAL IV PUSH PRN ×2 (01:01→10:02)
[2017-10-14] MEDS: CHLORHEXIDINE GLUCONATE 2 % 1 PACK (2 CLOTHS) TOP SCH (04:00)
[2017-10-14 05:18] LABS: BICARBONATE 28.5 MEQ/L (21.0-32.0); POTASSIUM 3.7 MEQ/L (3.5-5.1)
[2017-10-14] MEDS: METOPROLOL TARTRATE 25 MG TAB PO SCH (07:59)
[2017-10-14] MEDS: SODIUM CHLORIDE 1 GRAM TAB PO SCH ×2 (07:59→20:43)
[2017-10-14] MEDS: PANTOPRAZOLE SOD 40 MG DELAYED RELEASE TAB PO SCH (07:59)
[2017-10-14] MEDS: DOCUSATE SODIUM 50 MG/SENNA 8.6 MG TAB PO SCH ×2 (07:59→20:46)
[2017-10-14] MEDS: guaiFENesin E.R. 600 MG TAB PO SCH ×2 (07:59→20:43)
[2017-10-14] MEDS: SODIUM CHLORIDE 0.9% FLUSH 10 ML FLUSH IV FLUSH SCH ×2 (08:00→20:44)
[2017-10-14] MEDS: ENALAPRIL MALEATE 10 MG TAB PO SCH ×2 (08:00→20:43)
[2017-10-14] MEDS: hydrALAZINE HCL 100 MG TAB PO SCH ×2 (08:00→20:43)
--- NOTE | 2017-10-14 09:40 | HHI.NSPN ---
(Raman Ferrell) History Chief Complaint: Fronal headaches, ICH. (Raman Ferrell) Interval History This is a 57-year-old female who was visiting her son in the hospital when she had an abrupt onset of left-sided hemiplegia and neglect and reportedly some twitching and shaking in the right side, but these were not related as seizures. She has a dysarthric and slurred speech and confusion along with complaints of headache. She was taken to the emergency room where she was very hypertensive with an initial blood pressure of 215/112 at one point. Her hypertension was regulated and CT scan of the head obtained that reveals a 3.2 cm right basal ganglia hemorrhage. The ventricles are small and not dilated and there is no intraventricular hemorrhage noted. She was admitted to the surgical intensive care unit for hemodynamic and neurologic monitoring. Subsequent CT angiogram of the brain as well as the carotids has also been obtained and no underlying aneurysm or vascular abnormality is noted with some areas of focal stenosis in the right anterior cerebral artery. The patient is lethargic and has also received some Ativan for shivers and shakes but is easily arousable. A detailed history is difficult to obtain from her. 10/08/17: Awake and alert. Complains of frontal headaches. Nausea but no vomiting today. Left hemiparesis pt states improved some. 10/09/17: Complains of frontal headache and nausea no vomiting. Left hemiparesis stable. 10/10/17: Pt awakens to voice. States headaches improved today. No nausea but poor po intake. Left hemiparesis. Pt back on Cardene drip. 10/11/17: Pt awakens to voice, complains of frontal headaches. Intermittent nausea. Left hemiparesis stable. 10/12/17: Pt awake. She is very frustrated and agitated this morning. Poor insight into her current condition, wants to go home. Complains of headaches. Pt off Cardene but requiring IV antihypertensives. 10/13/17: Pt awake. States she woke up with a frontal headache and nausea No paresthesias. Left hemiparesis improving. Pt was less agitated and anxious yesterday when came by. 10/14/17: Patient awake and alert. Complains of frontal headache and nausea. Stable left hemiparesis. She moves her right side well. Patient still intermittently with periods of agitation and frustration. (Raman Ferrell) Review of Systems General: Negative for: fever, chills, insomnia Respiratory: Negative for: shortness of breath, cough, sputum Cardiovascular: Negative for: chest pain Gastrointestinal: Negative for: nausea, vomitting, diarrhea, constipation ( Raman Ferrell) Exam Results Vital Signs Date Time Temp Pulse Resp B/P (MAP) Pulse Ox O2 Delivery O2 Flow Rate FiO2 10/14/17 08:00 92 10/14/17 08:00 98.2 16 158/87 (110) 96 10/14/17 07:44 21 10/11/17 00:18 Nasal Cannula 2.00 Intake and Output 10/14/17 10/14/17 10/14/17 07:59 15:59 23:59 Intake Total 450 ml Output Total 800 ml Balance -350 ml (Raman Ferrell) Physical Examination General: Pt resting comfortably in bed in NAD. Eyes: Pupils equal. Sclera anicteric. Resp: CTA bilaterally Heart: NSR no murmurs Abd: Soft positive bs Skin: No cyanosis or erythema Muscle: Left hemiparesis. Moves right side well 5/5. Neuro: Pt awake and alert. Pupils 3mm bilaterally reactive bilaterally. Left facial paresis. Follows simple commands. Speech clear and appropriate. Periods of agitation and frustration with her overall condition. (Raman Ferrell) Lab, Micro, Other Results Last Impressions Brain MRI 10/09/17 0000 Signed Impressions: Service Date/Time: Monday, October 09, 2017 10:58 - CONCLUSION: Large right posterior sylvian hematoma with evidence of both methemoglobin and deoxyhemoglobin. No focal abnormal areas of enhancement. Slight increase in midline shift towards the left, now measuring 6 mm (previously measured 4 mm). Aamir Diallo MD Head CT 10/08/17 0600 Signed Impressions: Service Date/Time: Sunday, October 08, 2017 04:04 - CONCLUSION: No significant change. Matthew Hutchison MD Neck CTA 10/07/17 0000 Signed Impressions: Service Date/Time: Saturday, October 07, 2017 12:57 - CONCLUSION: Normal examination. Bovine origin of the great vessels. Vic Serna MD Head CTA 10/07/17 0000 Signed Impressions: Service Date/Time: Saturday, October 07, 2017 12:57 - CONCLUSION: Somewhat unusual anatomy involving the right internal carotid bifurcation. 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 No evidence of aneurysm or etiology for subarachnoid hemorrhage is seen. Vic Serna MD Laboratory Tests Test 10/14/17 03:57 Blood Urea Nitrogen 9 MG/DL Creatinine 0.78 MG/DL Random Glucose 117 MG/DL Calcium Level 7.8 MG/DL Sodium Level 142 MEQ/L Potassium Level 3.7 MEQ/L Chloride Level 107 MEQ/L Carbon Dioxide Level 28.5 MEQ/L Anion Gap 7 MEQ/L Estimat Glomerular Filtration Rate 76 ML/MIN (Raman Ferrell) Medical Decision Making Impression and Plan A: 1. 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 Follow up CT head without significant progression. 2. Unregulated hypertension 3. Recurrent urinary tract infection on prophylactic antibiotic therapy. PLAN Continue with close neuro checks. Continue with blood pressure control to avoid rebleed and clinical deterioration. Rehab efforts to improve left hemiparesis. (Raman Ferrell) Attending Statement The exam, history, and the medical decision-making described in the above note were completed with the assistance of the mid-level provider. I reviewed and agree with the findings presented. I attest that I had a [id number] encounter with the patient on the same day, and personally performed and documented my assessment and findings in the medical record. (Alejandro Fitzgerald MD) Raman Ferrell Oct 14, 2017 09:40 Alejandro Fitzgerald MD Oct 14, 2017 14:50
[2017-10-14] MEDS: LABETALOL HCL 100 MG/20 ML VIAL IV PUSH PRN (10:36)
[2017-10-14] MEDS: PROMETHAZINE INJ 25 MG/ML VIAL IM PRN (10:42)
--- NOTE | 2017-10-14 10:42 | HHI.CCPN ---
Subjective Remarks/Hospital Course Patient is a 57-year-old female with past medical history significant for hypertension currently off medication, recurrent UTI on Keflex for prophylaxis. She was visiting her son who is admitted in the hospital and had abrupt onset of headache with left-sided hemiplegia. A stroke alert was initiated and patient was moved to the emergency department. A stat CT of the head showed moderate-sized, approximately 3.0 x 3.2 cm, right basal ganglia hemorrhage with mass effect on the right lateral ventricle. Blood work was unremarkable and coags were negative. Initial blood pressure was 190-200 systolic and patient was started on Cardene infusion. Dr. King neurology and Dr. Fitzgerald neurosurgery had been contacted and consulted by ED I evaluated the patient in the emergency department. Patient appears anxious but able to talk normally she has flaccid paralysis of the left side of body with left hemisensory loss. CT of the head was personally reviewed. Titrate Cardene to keep systolic blood pressure less than 150 and also add when necessary labetalol. Ativan when necessary for twitching of the lower extremity. I doubt any surgical intervention is warranted at this time. CTA of brain to rule aneurysm SUBJ 10/08/17: Lying in bed able to talk normally. Left hemiparesis has shown significant improvement. CT of the head stable. We'll start by mouth antihypertensives with enalapril and hydrochlorothiazide. 10/09: Off Cardene as of now. Will discontinue. Increase enalapril to 20 BID. Resume Cephalexin for UTI prophylaxis. Up to chair. MRI ordered by Dr. King 10/10: BP control improved, but intermittently hypertensive. Lethargic with 1.5 Dilaudid will reduce to 1 mg when necessary. Speech appears normal except for few word finding difficulties 10/11: Appears slightly somnolent today, but her exam remains unchanged. Blood pressure control is much improved. Sodium is 135, I will add sodium chloride tablets and discontinue hydrochlorothiazide. I have also reduced when necessary Dilaudid to 0.5 mg IV every 4 hours for breakthrough pain. 10/12: Remains somnolent but opens eyes and is cooperative. 10/13: Follows commands. Headache is severe. 10/14: Persistent hypertension. Increase lopressor, add prn clonidine. Objective Vital Signs Date Time Temp Pulse Resp B/P (MAP) Pulse Ox O2 Delivery O2 Flow Rate FiO2 12/1/17 10:00 86 10/14/17 08:00 98.2 16 158/87 (110) 96 10/14/17 07:44 21 10/11/17 00:18 Nasal Cannula 2.00 Intake and Output 10/14/17 10/14/17 10/15/17 08:00 16:00 00:00 Intake Total 450 ml Output Total 800 ml Balance -350 ml Result Diagram: 10/11/17 0415 10/14/[address] of the head: Moderate-sized, approximately 3.0 x 3.2 cm, right basal ganglia hemorrhage with mass effect on the right lateral ventricle Objective Remarks GENERAL: 57 year-old woman, lying in the ICU bed, slightly somnolent SKIN: Warm/dry. HEAD: Atraumatic. Normocephalic. EYES: Pupils equal and round. No scleral icterus. No injection or drainage. ENT: No nasal bleeding or discharge. Mucous membranes pink and moist. Left facial droop NECK: Trachea midline. Airway widely patent. CARDIOVASCULAR: Regular rate and rhythm. 2/6 systolic murmur apex and lower left sternal border RESPIRATORY: No accessory muscle use. Clear to auscultation. Breath sounds equal bilaterally. Comfortable. GASTROINTESTINAL: Abdomen soft, non-tender, nondistended. Hepatic and splenic margins not palpable. Well-healed midline scar in the lower abdomen MUSCULOSKELETAL: No clubbing. No cyanosis. No edema. NEUROLOGICAL: Awake and alert, normal speech. Left facial droop. 4/5 strength left upper and lower extremity. Left hemisensory loss. A/P Assessment and Plan PLAN: NEURO: Moderate-sized, right basal ganglia hemorrhage 3.0 x 3.2 cm Left hemiparesis - CT of the head: moderate sixed right BG hemorrhage with mass effect on right lateral ventricle - Repeat CT of the head stable hemorrhage. CTA of the head and neck negative for aneurysm, focal stenosis at origin of Right JAYSON. No intervention needed at this time per Dr. Fitzgerald - MRI 10/09- subacute hematoma in the right posterior sylvian region 5.0 x 1.7 cm. Moderate cerebral edema. 6 mm midline shift to left - Neurosurgery Dr. Fitzgerald. Continue conservative management - PT/OT/Speech - C/o severe head ache- f/u MRI of brain. Use PRN Dilaudid and oxycodone - Hold 2% saline to keep Na above 140 RESP: - DuoNeb every 6 hours when necessary - Aggressive pulmonary toilet CV: Hypertensive emergency History of hypertension Cardiac murmur - Off Cardene infusion. IV labetalol 20 mg every 6 hours when necessary for SBP more than 160 - Normal saline gtt. 2% saline at 30 ml per hour - Enalapril to 20 mg by mouth twice a day, Coreg 6.25 BID 10/10/17 -> convert to lopressor for better rate control. - DC HCTZ due to hyponatremia - 2 D Echo to evaluate cardiac murmur-Normal EF Trace MR/TR - Add hydralazine scheduled PO (hopefully will not worsen tachycardia) - Increase lopressor to 50 bid GI: - Protonix 40 mg daily, regular diet : - Monitor renal function closely. Chen catheter. ID: History of recurrent UTI - Cephalexin 250 daily for UTI prophylaxis HEME: - Monitor CBC, CMP, coags ENDO: - Sliding-scale insulin - Electrolyte replacement per protocol PROPH: - Bilateral lower extremity SCDs/ESTIVEN. Protonix 40 mg daily. - Start Lovenox when cleared by N/S. increase mobility LINES: - Utilize peripheral IVs, central line if needed Overall impression: Transfer to floor when BP control acceptable, later today fine. Brian Bravo MD Oct 14, 2017 10:42
[2017-10-14] MEDS ORDERED: cloNIDine HCL 0.1 MG TAB PO PRN (12:00)
[2017-10-14] MEDS: oxyCODONE/ACETAMINOPHEN 7.5 MG/325 MG TAB PO PRN ×2 (14:52→21:03)
[2017-10-14] MEDS: ENOXAPARIN SODIUM 40 MG/0.4 ML SYRINGE SQ SCH (14:53)
--- NOTE | 2017-10-14 18:26 | HHI.PR ---
Review/Management Diagnosis right basal ganglia hemorrhage---probably hypertensive Diagnosis/Plan: Subjective Subjective Comments No acute events reported Headache improved. moving left side easier Active Medications Current Medications Medications (Trade) Dose Ordered Sig/Ermelinda Route Start Time Stop Time Status Last Admin (NS Flush) 2 ml UNSCH PRN IV FLUSH 10/07/17 08:45 (NS Flush) 2 ml BID IV FLUSH 10/07/17 09:00 10/14/17 08:00 (Duoneb Neb) 1 ampule Q2HR NEB PRN INH 10/07/17 08:45 Miscellaneous Information 1 Q361D XX 10/07/17 08:45 10/07/17 08:45 (Chlorhexidine 2% Cloth) Taper DAILY@04 TOP 10/08/17 04:00 10/04/18 03:59 10/11/17 04:00 (Chlorhexidine 2% Cloth) 3 pack UNSCH PRN TOP 10/07/17 08:45 (Sangita-Colace) 1 tab BID PO 10/07/17 09:00 10/14/17 07:59 (Milk Of Magnesia Liq) 30 ml Q12H PRN PO 10/07/17 08:45 (Senokot) 17.2 mg Q12H PRN PO 10/07/17 08:45 (Dulcolax Supp) 10 mg DAILY PRN RECTAL 10/07/17 08:45 (Lactulose Liq) 30 ml DAILY PRN PO 10/07/17 08:45 (Trandate Inj) 20 mg Q4H PRN IV PUSH 10/07/17 08:45 10/14/17 10:36 Potassium Chloride 100 ml @ 50 mls/hr Q2H PRN IV 10/07/17 09:00 Potassium Chloride 100 ml @ 50 mls/hr Q2H PRN IV 10/07/17 09:00 (K-Lyte Cl Eff) 50 meq UNSCH PRN PO 10/07/17 09:00 Potassium Chloride 100 ml @ 25 mls/hr UNSCH PRN IV 10/07/17 09:00 10/12/17 02:18 Potassium Chloride 100 ml @ 50 mls/hr Q2H PRN IV 10/07/17 09:00 Magnesium Sulfate 4 gm/Sodium Chloride 100 ml @ 50 mls/hr UNSCH PRN IV 10/07/17 09:00 (Mag-Ox) 800 mg UNSCH PRN PO 10/07/17 09:00 Magnesium Sulfate 2 gm/Sodium Chloride 100 ml @ 50 mls/hr UNSCH PRN IV 10/07/17 09:00 (K-Phos) 2,000 mg Q4H PRN PO 10/07/17 09:00 Sodium Phosphate 30 mmol/Sodium Chloride 250 ml @ 42 mls/hr UNSCH PRN IV 10/07/17 09:00 (K-Phos) 2,000 mg UNSCH PRN PO/TUBE 10/07/17 09:00 Potassium Phosphate 30 mmol/ Sodium Chloride 260 ml @ 42 mls/hr UNSCH PRN IV 10/07/17 09:00 (Ativan Inj) 0.5 mg Q4H PRN IV PUSH 10/07/17 10:30 10/12/17 23:10 (Zofran Inj) 4 mg Q6HR PRN IV PUSH 10/07/17 21:15 10/13/17 14:32 (Percocet 7.5-325 Mg) 1 tab Q6H PRN PO 10/08/17 12:15 10/14/17 14:52 (Keflex) 250 mg HS PO 10/09/17 21:00 10/13/17 20:10 (Vasotec) 20 mg BID PO 10/09/17 21:00 10/14/17 08:00 (Apresoline Inj) 20 mg Q4H PRN IV PUSH 10/09/17 17:15 10/14/17 10:02 Nicardipine HCl 25 mg/Sodium Chloride 250 ml @ 50 mls/hr TITRATE PRN IV 10/09/17 17:15 10/10/17 03:52 (Protonix) 40 mg DAILY PO 10/10/17 13:00 10/14/17 07:59 (Sodium Chloride) 1 gm Q12HR PO 10/11/17 10:15 10/14/17 07:59 (Lovenox Inj) 40 mg Q24H SQ 10/12/17 15:00 10/14/17 14:53 (Dilaudid Pf Inj) 1 mg Q4H PRN IV PUSH 10/13/17 11:30 10/14/17 10:02 (Apresoline) 100 mg Q12HR PO 10/13/17 11:30 10/14/17 08:00 (Mucinex Er) 600 mg BID PO 10/13/17 12:00 10/14/17 07:59 (Phenergan Inj) 25 mg Q6H PRN IM 10/13/17 15:00 10/14/17 10:42 (Lopressor) 50 mg Q12HR PO 10/14/17 21:00 (Catapres) 0.1 mg Q6HR PRN PO 10/14/17 12:00 Allergies Allergies Coded Allergies Unable to Assess (Verified Allergy, Unknown, 10/07/17) Exam I&O / VS 10/14/17 10/14/17 10/15/17 15:00 23:00 07:00 Intake Total 600 ml 400 ml Output Total 750 ml Balance 600 ml -350 ml Intake Oral 400 ml IV Total 600 ml Output Urine Total 750 ml # Voids 4 Vital Signs Date Time Temp Pulse Resp B/P (MAP) Pulse Ox O2 Delivery O2 Flow Rate FiO2 10/14/17 18:00 111 10/14/17 16:00 98.0 96 14 117/56 (76) 96 10/14/17 16:00 96 10/14/17 14:00 100 10/14/17 12:00 88 10/14/17 12:00 98.3 88 12 120/65 (83) 98 10/14/17 10:00 86 10/14/17 08:00 92 10/14/17 08:00 98.2 94 16 158/87 (110) 96 10/14/17 07:44 98 21 10/14/17 06:00 90 10/14/17 04:00 98.4 92 14 148/71 (96) 95 10/14/17 04:00 92 10/14/17 02:00 98 10/14/17 01:00 90 170/90 (116) 10/14/17 00:00 87 10/14/17 00:00 98.1 82 14 168/70 (102) 98 10/13/17 22:00 92 10/13/17 20:00 105 10/13/17 20:00 98.2 97 16 152/68 (96) 98 Exam Comments alert, speech normal, follows commands Cn intact pupils 2 mm symmetric and reactive MOTOR 5/5 LUE and LLE Objective Micro and Labs Laboratory Tests Test 10/14/17 03:57 Blood Urea Nitrogen 9 Creatinine 0.78 Random Glucose 117 Calcium Level 7.8 Sodium Level 142 Potassium Level 3.7 Chloride Level 107 Carbon Dioxide Level 28.5 Anion Gap 7 Estimat Glomerular Filtration Rate 76 Alvin King PhD Oct 14, 2017 18:26
[2017-10-14] MEDS: METOPROLOL TARTRATE 50 MG TAB PO SCH (20:44)
[2017-10-14] MEDS: CEPHALEXIN MONOHYDRATE 250 MG CAP PO SCH (21:05)
[2017-10-15] VITALS (7 sets, daily range): BP systolic 127–190; BP diastolic 67–92; PULSE 78–102; RESP 16–20; TEMP 98–100; O2SAT 90–95
[2017-10-15] MEDS: HYDROmorphone HCL PF 1 MG/ML VIAL IV PUSH PRN ×3 (00:19→21:07)
[2017-10-15] MEDS: CHLORHEXIDINE GLUCONATE 2 % 1 PACK (2 CLOTHS) TOP SCH (04:00)
[2017-10-15 07:58] LABS: BICARBONATE 30.2 MEQ/L (21.0-32.0); POTASSIUM 3.6 MEQ/L (3.5-5.1)
--- NOTE | 2017-10-15 08:20 | HHI.PR ---
Subjective Remarks Materials Assistant Notes: Patient is a 57-year-old female with past medical history significant for hypertension currently off medication, recurrent UTI on Keflex for prophylaxis. She was visiting her son who is admitted in the hospital and had abrupt onset of headache with left-sided hemiplegia. A stroke alert was initiated and patient was moved to the emergency department. A stat CT of the head showed moderate-sized, approximately 3.0 x 3.2 cm, right basal ganglia hemorrhage with mass effect on the right lateral ventricle. Blood work was unremarkable and coags were negative. Initial blood pressure was 190-200 systolic and patient was started on Cardene infusion. Dr. King neurology and Dr. Fitzgerald neurosurgery had been contacted and consulted by ED I evaluated the patient in the emergency department. Patient appears anxious but able to talk normally she has flaccid paralysis of the left side of body with left hemisensory loss. CT of the head was personally reviewed. Titrate Cardene to keep systolic blood pressure less than 150 and also add when necessary labetalol. Ativan when necessary for twitching of the lower extremity. I doubt any surgical intervention is warranted at this time. CTA of brain to rule aneurysm 10/08/17: Lying in bed able to talk normally. Left hemiparesis has shown significant improvement. CT of the head stable. We'll start by mouth antihypertensives with enalapril and hydrochlorothiazide. 10/09: Off Cardene as of now. Will discontinue. Increase enalapril to 20 BID. Resume Cephalexin for UTI prophylaxis. Up to chair. MRI ordered by Dr. King 10/10: BP control improved, but intermittently hypertensive. Lethargic with 1.5 Dilaudid will reduce to 1 mg when necessary. Speech appears normal except for few word finding difficulties 10/11: Appears slightly somnolent today, but her exam remains unchanged. Blood pressure control is much improved. Sodium is 135, I will add sodium chloride tablets and discontinue hydrochlorothiazide. I have also reduced when necessary Dilaudid to 0.5 mg IV every 4 hours for breakthrough pain. 10/12: Remains somnolent but opens eyes and is cooperative. 10/13: Follows commands. Headache is severe. 10/14: Persistent hypertension. Increase lopressor, add prn clonidine. Hospitalist Notes: 10/15: Seen in the room in the presence of her Mr Lukas Piper he wants her to be transferred to [place] but not yet cleared by Neurosurgery Waiting final recommendations, with Diagnosis of Right basal ganglia Hemorrhage consistent with a hypertensive bleed, at this time stable continue with Headache and nauseated, encourage Activity, as per Neurosurgery continue close Neuro checks, blood pressure control, rehab efforts to improve left Hemiparesis Objective Vital Signs Date Time Temp Pulse Resp B/P (MAP) Pulse Ox O2 Delivery O2 Flow Rate FiO2 10/15/17 03:20 100.0 94 20 147/83 (104) 95 10/15/17 01:30 98.0 78 18 142/77 (98) 93 10/14/17 21:00 97.5 106 18 137/91 (106) 96 10/14/17 18:00 111 10/14/17 16:00 98.0 96 14 117/56 (76) 96 10/14/17 16:00 96 10/14/17 14:00 100 10/14/17 12:00 88 10/14/17 12:00 98.3 88 12 120/65 (83) 98 10/14/17 10:00 86 I/O 10/14/17 10/14/17 10/14/17 10/15/17 10/15/17 10/15/17 07:00 15:00 23:00 07:00 15:00 23:00 Intake Total 450 ml 600 ml 400 ml Output Total 800 ml 750 ml Balance -350 ml 600 ml -350 ml Intake Oral 450 ml 400 ml IV Total 600 ml Output Urine Total 800 ml 750 ml # Voids 4 # Bowel Movements 0 Result Diagram: 10/11/17 0415 10/15/17 0715 Imaging Last Impressions Brain MRI 10/09/17 0000 Signed Impressions: Service Date/Time: Monday, October 09, 2017 10:58 - CONCLUSION: Large right posterior sylvian hematoma with evidence of both methemoglobin and deoxyhemoglobin. No focal abnormal areas of enhancement. Slight increase in midline shift towards the left, now measuring 6 mm (previously measured 4 mm). Aamir Diallo MD Head CT 10/08/17 0600 Signed Impressions: Service Date/Time: Sunday, October 08, 2017 04:04 - CONCLUSION: No significant change. Matthew Hutchison MD Neck CTA 10/07/17 0000 Signed Impressions: Service Date/Time: Saturday, October 07, 2017 12:57 - CONCLUSION: Normal examination. Bovine origin of the great vessels. Vic Serna MD Head CTA 10/07/17 0000 Signed Impressions: Service Date/Time: Saturday, October 07, 2017 12:57 - CONCLUSION: Somewhat unusual anatomy involving the right internal carotid bifurcation. 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 No evidence of aneurysm or etiology for subarachnoid hemorrhage is seen. Vic Serna MD Procedures None Other Results Laboratory Tests Test 10/07/17 07:45 10/07/17 08:20 10/09/17 15:29 10/11/17 04:15 Bedside Hemoglobin 15.3 G/DL Bedside Hematocrit 45.0 % Prothrombin Time 10.3 SEC Prothromb Time International Ratio 0.9 RATIO Activated Partial Thromboplast Time 22.8 SEC Fibrinogen 295 mg/dL Bedside Sodium 140 MMOL/L Bedside Potassium 4.2 MMOL/L Bedside Chloride 102 MMOL/L Bedside Blood Urea Nitrogen 19 MG/DL Bedside Creatinine 0.9 MG/DL Bedside Glucose 140 MG/DL Phosphorus Level 2.4 MG/DL Total Creatine Kinase 115 U/L Troponin I LESS THAN 0.02 NG/ML Human Chorionic Gonadotropin, Quant 2 MIU/ML Urine Color COLORLESS Urine Turbidity HAZY Urine pH 8.5 Urine Specific [place] 1.009 Urine Protein NEG mg/dL Urine Glucose (UA) NEG mg/dL Urine Ketones NEG mg/dL Urine Occult Blood NEG Urine Nitrite NEG Urine Bilirubin NEG Urine Urobilinogen LESS THAN 2.0 MG/DL Urine Leukocyte Esterase NEG Urine RBC 2 /hpf Urine WBC 1 /hpf Urine Squamous Epithelial Cells 1 /hpf Urine Amorphous Sediment OCC Urine Mucus FEW /lpf Urine Opiates Screen NEG Urine Barbiturates Screen NEG Urine Amphetamines Screen NEG Urine Benzodiazepines Screen NEG Urine Cocaine Screen NEG Urine Cannabinoids Screen NEG Thyroid Stimulating Hormone 3rd Gen 0.608 uIU/ML White Blood Count 9.6 TH/MM3 Red Blood Count 4.53 MIL/MM3 Hemoglobin 13.6 GM/DL Hematocrit 40.5 % Mean Corpuscular Volume 89.3 FL Mean Corpuscular Hemoglobin 29.9 PG Mean Corpuscular Hemoglobin Concent 33.5 % Red Cell Distribution Width 13.8 % Platelet Count 253 TH/MM3 Mean Platelet Volume 9.1 FL Neutrophils (%) (Auto) 70.5 % Lymphocytes (%) (Auto) 16.3 % Monocytes (%) (Auto) 10.8 % Eosinophils (%) (Auto) 2.1 % Basophils (%) (Auto) 0.3 % Neutrophils # (Auto) 6.8 TH/MM3 Lymphocytes # (Auto) 1.6 TH/MM3 Monocytes # (Auto) 1.0 TH/MM3 Eosinophils # (Auto) 0.2 TH/MM3 Basophils # (Auto) 0.0 TH/MM3 CBC Comment DIFF FINAL Differential Comment Blood Urea Nitrogen 13 MG/DL Creatinine 0.72 MG/DL Random Glucose 96 MG/DL Total Protein 6.1 GM/DL Albumin 3.2 GM/DL Calcium Level 8.4 MG/DL Magnesium Level 2.0 MG/DL Alkaline Phosphatase 53 U/L Aspartate Amino Transf (AST/SGOT) 14 U/L Alanine Aminotransferase (ALT/SGPT) 12 U/L Total Bilirubin 0.5 MG/DL Sodium Level 135 MEQ/L Potassium Level 3.9 MEQ/L Chloride Level 98 MEQ/L Carbon Dioxide Level 29.9 MEQ/L Test 10/15/17 07:15 Blood Urea Nitrogen 9 MG/DL Creatinine 0.61 MG/DL Random Glucose 100 MG/DL Calcium Level 8.3 MG/DL Sodium Level 137 MEQ/L Potassium Level 3.6 MEQ/L Chloride Level 102 MEQ/L Carbon Dioxide Level 30.2 MEQ/L Anion Gap 5 MEQ/L Estimat Glomerular Filtration Rate 101 ML/MIN Objective Remarks GENERAL: Alert and oriented x 3 SKIN: Warm/dry. HEAD: Atraumatic. Normocephalic. EYES: Pupils equal and round. No scleral icterus. No injection or drainage. ENT: No nasal bleeding or discharge. Mucous membranes pink and moist. Left facial droop NECK: Trachea midline. Airway widely patent. CARDIOVASCULAR: Regular rate and rhythm. 2/6 systolic murmur apex and lower left sternal border RESPIRATORY: No accessory muscle use. Clear to auscultation. Breath sounds equal bilaterally. Comfortable. GASTROINTESTINAL: Abdomen soft, non-tender, nondistended. Hepatic and splenic margins not palpable. Well-healed midline scar in the lower abdomen MUSCULOSKELETAL: No clubbing. No cyanosis. No edema. NEUROLOGICAL: Awake and alert, normal speech. Left facial droop. 4/5 strength left upper and lower extremity. Left hemisensory loss. Medications and IVs Current Medications Medications (Trade) Dose Ordered Sig/Ermelinda Route Start Time Stop Time Status Last Admin (NS Flush) 2 ml UNSCH PRN IV FLUSH 10/07/17 08:45 (NS Flush) 2 ml BID IV FLUSH 10/07/17 09:00 10/14/17 20:44 (Duoneb Neb) 1 ampule Q2HR NEB PRN INH 10/07/17 08:45 Miscellaneous Information 1 Q361D XX 10/07/17 08:45 10/07/17 08:45 (Chlorhexidine 2% Cloth) Taper DAILY@04 TOP 10/08/17 04:00 10/04/18 03:59 10/11/17 04:00 (Chlorhexidine 2% Cloth) 3 pack UNSCH PRN TOP 10/07/17 08:45 (Sangita-Colace) 1 tab BID PO 10/07/17 09:00 10/14/17 20:46 (Milk Of Magnesia Liq) 30 ml Q12H PRN PO 10/07/17 08:45 (Senokot) 17.2 mg Q12H PRN PO 10/07/17 08:45 (Dulcolax Supp) 10 mg DAILY PRN RECTAL 10/07/17 08:45 (Lactulose Liq) 30 ml DAILY PRN PO 10/07/17 08:45 (Trandate Inj) 20 mg Q4H PRN IV PUSH 10/07/17 08:45 10/14/17 10:36 (Ativan Inj) 0.5 mg Q4H PRN IV PUSH 10/07/17 10:30 10/12/17 23:10 (Zofran Inj) 4 mg Q6HR PRN IV PUSH 10/07/17 21:15 10/13/17 14:32 (Percocet 7.5-325 Mg) 1 tab Q6H PRN PO 10/08/17 12:15 10/14/17 21:03 (Keflex) 250 mg HS PO 10/09/17 21:00 10/14/17 21:05 (Vasotec) 20 mg BID PO 10/09/17 21:00 10/14/17 20:43 (Apresoline Inj) 20 mg Q4H PRN IV PUSH 10/09/17 17:15 10/14/17 10:02 Nicardipine HCl 25 mg/Sodium Chloride 250 ml @ 50 mls/hr TITRATE PRN IV 10/09/17 17:15 10/10/17 03:52 (Protonix) 40 mg DAILY PO 10/10/17 13:00 10/14/17 07:59 (Sodium Chloride) 1 gm Q12HR PO 10/11/17 10:15 10/14/17 20:43 (Lovenox Inj) 40 mg Q24H SQ 10/12/17 15:00 10/14/17 14:53 (Dilaudid Pf Inj) 1 mg Q4H PRN IV PUSH 10/13/17 11:30 10/15/17 00:19 (Apresoline) 100 mg Q12HR PO 10/13/17 11:30 10/14/17 20:43 (Mucinex Er) 600 mg BID PO 10/13/17 12:00 10/14/17 20:43 (Phenergan Inj) 25 mg Q6H PRN IM 10/13/17 15:00 10/14/17 10:42 (Lopressor) 50 mg Q12HR PO 10/14/17 21:00 10/14/17 20:44 (Catapres) 0.1 mg Q6HR PRN PO 10/14/17 12:00 A/P Assessment and Plan 1. Moderate Sized right basal ganglia hemorrhage 3.0 x 3.2 cm - CT of the head: moderate sixed right BG hemorrhage with mass effect on right lateral ventricle - Repeat CT of the head stable hemorrhage. CTA of the head and neck negative for aneurysm, focal stenosis at origin of Right JAYSON. No intervention needed at this time per Dr. Fitzgerald - MRI 10/09- subacute hematoma in the right posterior sylvian region 5.0 x 1.7 cm. Moderate cerebral edema. 6 mm midline shift to left - Neurosurgery Dr. Fitzgerald. Continue conservative management - PT/OT/Speech - C/o severe head ache- f/u MRI of brain. Use PRN Dilaudid and oxycodone - Hold 2% saline to keep Na above 140, Not yet cleared for discharge. 2. Hypertensive Emergency/Hypertension/Cardiac Murmur at this time controlled. -Off Cardene infusion. IV labetalol 20 mg every six hours when necessary for SBP danny than 160 mm Hg. -Discontinued HCTZ due to Hyponatremia, - 2 D Echo to evaluate cardiac murmur-Normal EF Trace MR/TR -had Tachycardia increased Lopressor to 50 BID 3. Recurrent UTI on Cephalexin 250 mg Daily for UTI prophylaxis. DVT prophylaxis SCD GI prophylaxis with PPI Discussed with patient and her Mr. Lukas Piper all questions answered to the best of my abilities. Discharge Planning Awaiting final recommendations by Neurosurgery for discharge. Ravi Alarcon MD Oct 15, 2017 08:20
[2017-10-15] MEDS: PROMETHAZINE INJ 25 MG/ML VIAL IM PRN (08:56)
[2017-10-15] MEDS: oxyCODONE/ACETAMINOPHEN 7.5 MG/325 MG TAB PO PRN ×2 (08:57→18:38)
[2017-10-15] MEDS: ENALAPRIL MALEATE 10 MG TAB PO SCH ×2 (08:58→21:06)
[2017-10-15] MEDS: SODIUM CHLORIDE 0.9% FLUSH 10 ML FLUSH IV FLUSH SCH ×2 (08:58→21:05)
[2017-10-15] MEDS: METOPROLOL TARTRATE 50 MG TAB PO SCH ×2 (08:58→21:06)
[2017-10-15] MEDS: guaiFENesin E.R. 600 MG TAB PO SCH ×2 (08:58→21:06)
[2017-10-15] MEDS: PANTOPRAZOLE SOD 40 MG DELAYED RELEASE TAB PO SCH (08:58)
[2017-10-15] MEDS: hydrALAZINE HCL 100 MG TAB PO SCH ×2 (08:58→21:06)
[2017-10-15] MEDS: SODIUM CHLORIDE 1 GRAM TAB PO SCH ×2 (08:58→21:07)
[2017-10-15] MEDS: DOCUSATE SODIUM 50 MG/SENNA 8.6 MG TAB PO SCH ×2 (08:58→21:06)
[2017-10-15] MEDS: LACTULOSE SYRUP 20 GM/30 ML CUP PO PRN (08:58)
[2017-10-15] MEDS: MAGNESIUM HYDROXIDE SUSP 30 ML CUP PO PRN (14:41)
[2017-10-15] MEDS: ENOXAPARIN SODIUM 40 MG/0.4 ML SYRINGE SQ SCH (14:42)
[2017-10-15] MEDS: ONDANSETRON HCL 4 MG/2 ML VIAL IV PUSH PRN (14:42)
[2017-10-15] MEDS: CEPHALEXIN MONOHYDRATE 250 MG CAP PO SCH (21:06)
[2017-10-16] VITALS: BP 134/70; PULSE 50; RESP 20; TEMP 97.5; O2SAT 95
[2017-10-16 04:00] VITALS: BP 147/77; PULSE 85; RESP 18; TEMP 99.1; O2SAT 95
[2017-10-16] MEDS: CHLORHEXIDINE GLUCONATE 2 % 1 PACK (2 CLOTHS) TOP SCH (04:00)
[2017-10-16] MEDS: oxyCODONE/ACETAMINOPHEN 7.5 MG/325 MG TAB PO PRN ×3 (06:34→20:55)
[2017-10-16 08:00] VITALS: BP 149/81; PULSE 83; RESP 16; TEMP 98.5; O2SAT 94
[2017-10-16] MEDS: PANTOPRAZOLE SOD 40 MG DELAYED RELEASE TAB PO SCH (09:04)
[2017-10-16] MEDS: guaiFENesin E.R. 600 MG TAB PO SCH ×2 (09:04→20:53)
[2017-10-16] MEDS: LACTULOSE SYRUP 20 GM/30 ML CUP PO PRN (09:04)
[2017-10-16] MEDS: METOPROLOL TARTRATE 50 MG TAB PO SCH ×2 (09:04→20:53)
[2017-10-16] MEDS: SODIUM CHLORIDE 1 GRAM TAB PO SCH ×2 (09:04→20:53)
[2017-10-16] MEDS: ENALAPRIL MALEATE 10 MG TAB PO SCH ×2 (09:04→20:53)
[2017-10-16] MEDS: DOCUSATE SODIUM 50 MG/SENNA 8.6 MG TAB PO SCH ×2 (09:05→20:53)
[2017-10-16] MEDS: hydrALAZINE HCL 100 MG TAB PO SCH ×2 (09:05→20:54)
[2017-10-16] MEDS: HYDROmorphone HCL PF 1 MG/ML VIAL IV PUSH PRN (09:06)
[2017-10-16] MEDS: SODIUM CHLORIDE 0.9% FLUSH 10 ML FLUSH IV FLUSH SCH ×2 (09:07→20:57)
--- NOTE | 2017-10-16 10:42 | HHI.PR ---
Subjective Remarks Cdl Truck Driver Notes: Patient is a 57-year-old female with past medical history significant for hypertension currently off medication, recurrent UTI on Keflex for prophylaxis. She was visiting her son who is admitted in the hospital and had abrupt onset of headache with left-sided hemiplegia. A stroke alert was initiated and patient was moved to the emergency department. A stat CT of the head showed moderate-sized, approximately 3.0 x 3.2 cm, right basal ganglia hemorrhage with mass effect on the right lateral ventricle. Blood work was unremarkable and coags were negative. Initial blood pressure was 190-200 systolic and patient was started on Cardene infusion. Dr. King neurology and Dr. Fitzgerald neurosurgery had been contacted and consulted by ED I evaluated the patient in the emergency department. Patient appears anxious but able to talk normally she has flaccid paralysis of the left side of body with left hemisensory loss. CT of the head was personally reviewed. Titrate Cardene to keep systolic blood pressure less than 150 and also add when necessary labetalol. Ativan when necessary for twitching of the lower extremity. I doubt any surgical intervention is warranted at this time. CTA of brain to rule aneurysm 10/08/17: Lying in bed able to talk normally. Left hemiparesis has shown significant improvement. CT of the head stable. We'll start by mouth antihypertensives with enalapril and hydrochlorothiazide. 10/09: Off Cardene as of now. Will discontinue. Increase enalapril to 20 BID. Resume Cephalexin for UTI prophylaxis. Up to chair. MRI ordered by Dr. King 10/10: BP control improved, but intermittently hypertensive. Lethargic with 1.5 Dilaudid will reduce to 1 mg when necessary. Speech appears normal except for few word finding difficulties 10/11: Appears slightly somnolent today, but her exam remains unchanged. Blood pressure control is much improved. Sodium is 135, I will add sodium chloride tablets and discontinue hydrochlorothiazide. I have also reduced when necessary Dilaudid to 0.5 mg IV every 4 hours for breakthrough pain. 10/12: Remains somnolent but opens eyes and is cooperative. 10/13: Follows commands. Headache is severe. 10/14: Persistent hypertension. Increase lopressor, add prn clonidine. Hospitalist Notes: 10/15: Seen in the room in the presence of her Mr Lukas Piper he wants her to be transferred to [place] but not yet cleared by Neurosurgery Waiting final recommendations, with Diagnosis of Right basal ganglia Hemorrhage consistent with a hypertensive bleed, at this time stable continue with Headache and nauseated, encourage Activity, as per Neurosurgery continue close Neuro checks, blood pressure control, rehab efforts to improve left Hemiparesis 10/16:Stable seen in her bedroom in the presence of nurse Miss Manzo and Charge Nurse Miss Yin, also her Mr. Lukas Piper awaiting for discharge to go to [place], as per Charge Nurse, she will be discharged tomorrow after insurance authorization in place for discharge to Rehab at [facility] at this time okay to discharge from Neurosurgery and Neurology standpoint. no nausea, vomit or diarrhea. Objective Vital Signs Date Time Temp Pulse Resp B/P (MAP) Pulse Ox O2 Delivery O2 Flow Rate FiO2 10/16/17 08:00 98.5 83 16 149/81 (103) 94 10/16/17 04:00 99.1 85 18 147/77 (100) 95 10/16/17 00:00 97.5 50 20 134/70 (91) 95 10/15/17 20:00 98.3 102 18 138/67 (90) 93 10/15/17 16:45 98.5 85 18 136/69 (91) 90 10/15/17 11:44 98.9 89 20 127/67 (87) 93 I/O 10/15/17 10/15/17 10/15/17 10/16/17 10/16/17 10/16/17 06:59 14:59 22:59 06:59 14:59 22:59 Intake Total 600 ml Balance 600 ml Intake Oral 600 ml # Voids 5 5 # Bowel Movements 0 1 Result Diagram: 10/15/17 0715 Imaging Last Impressions Brain MRI 10/09/17 0000 Signed Impressions: Service Date/Time: Monday, October 09, 2017 10:58 - CONCLUSION: Large right posterior sylvian hematoma with evidence of both methemoglobin and deoxyhemoglobin. No focal abnormal areas of enhancement. Slight increase in midline shift towards the left, now measuring 6 mm (previously measured 4 mm). Aamir Diallo MD Head CT 10/08/17 0600 Signed Impressions: Service Date/Time: Sunday, October 08, 2017 04:04 - CONCLUSION: No significant change. Matthew Hutchison MD Neck CTA 10/07/17 0000 Signed Impressions: Service Date/Time: Saturday, October 07, 2017 12:57 - CONCLUSION: Normal examination. Bovine origin of the great vessels. Vic Serna MD Head CTA 10/07/17 0000 Signed Impressions: Service Date/Time: Saturday, October 07, 2017 12:57 - CONCLUSION: Somewhat unusual anatomy involving the right internal carotid bifurcation. 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 No evidence of aneurysm or etiology for subarachnoid hemorrhage is seen. Vic Serna MD Procedures None Other Results Laboratory Tests Test 10/07/17 07:45 10/07/17 08:20 10/09/17 15:29 10/11/17 04:15 Bedside Hemoglobin 15.3 G/DL Bedside Hematocrit 45.0 % Prothrombin Time 10.3 SEC Prothromb Time International Ratio 0.9 RATIO Activated Partial Thromboplast Time 22.8 SEC Fibrinogen 295 mg/dL Bedside Sodium 140 MMOL/L Bedside Potassium 4.2 MMOL/L Bedside Chloride 102 MMOL/L Bedside Blood Urea Nitrogen 19 MG/DL Bedside Creatinine 0.9 MG/DL Bedside Glucose 140 MG/DL Phosphorus Level 2.4 MG/DL Total Creatine Kinase 115 U/L Troponin I LESS THAN 0.02 NG/ML Human Chorionic Gonadotropin, Quant 2 MIU/ML Urine Color COLORLESS Urine Turbidity HAZY Urine pH 8.5 Urine Specific [place] 1.009 Urine Protein NEG mg/dL Urine Glucose (UA) NEG mg/dL Urine Ketones NEG mg/dL Urine Occult Blood NEG Urine Nitrite NEG Urine Bilirubin NEG Urine Urobilinogen LESS THAN 2.0 MG/DL Urine Leukocyte Esterase NEG Urine RBC 2 /hpf Urine WBC 1 /hpf Urine Squamous Epithelial Cells 1 /hpf Urine Amorphous Sediment OCC Urine Mucus FEW /lpf Urine Opiates Screen NEG Urine Barbiturates Screen NEG Urine Amphetamines Screen NEG Urine Benzodiazepines Screen NEG Urine Cocaine Screen NEG Urine Cannabinoids Screen NEG Thyroid Stimulating Hormone 3rd Gen 0.608 uIU/ML White Blood Count 9.6 TH/MM3 Red Blood Count 4.53 MIL/MM3 Hemoglobin 13.6 GM/DL Hematocrit 40.5 % Mean Corpuscular Volume 89.3 FL Mean Corpuscular Hemoglobin 29.9 PG Mean Corpuscular Hemoglobin Concent 33.5 % Red Cell Distribution Width 13.8 % Platelet Count 253 TH/MM3 Mean Platelet Volume 9.1 FL Neutrophils (%) (Auto) 70.5 % Lymphocytes (%) (Auto) 16.3 % Monocytes (%) (Auto) 10.8 % Eosinophils (%) (Auto) 2.1 % Basophils (%) (Auto) 0.3 % Neutrophils # (Auto) 6.8 TH/MM3 Lymphocytes # (Auto) 1.6 TH/MM3 Monocytes # (Auto) 1.0 TH/MM3 Eosinophils # (Auto) 0.2 TH/MM3 Basophils # (Auto) 0.0 TH/MM3 CBC Comment DIFF FINAL Differential Comment Blood Urea Nitrogen 13 MG/DL Creatinine 0.72 MG/DL Random Glucose 96 MG/DL Total Protein 6.1 GM/DL Albumin 3.2 GM/DL Calcium Level 8.4 MG/DL Magnesium Level 2.0 MG/DL Alkaline Phosphatase 53 U/L Aspartate Amino Transf (AST/SGOT) 14 U/L Alanine Aminotransferase (ALT/SGPT) 12 U/L Total Bilirubin 0.5 MG/DL Sodium Level 135 MEQ/L Potassium Level 3.9 MEQ/L Chloride Level 98 MEQ/L Carbon Dioxide Level 29.9 MEQ/L Test 10/15/17 07:15 Blood Urea Nitrogen 9 MG/DL Creatinine 0.61 MG/DL Random Glucose 100 MG/DL Calcium Level 8.3 MG/DL Sodium Level 137 MEQ/L Potassium Level 3.6 MEQ/L Chloride Level 102 MEQ/L Carbon Dioxide Level 30.2 MEQ/L Anion Gap 5 MEQ/L Estimat Glomerular Filtration Rate 101 ML/MIN Objective Remarks GENERAL: Alert and oriented x 3 SKIN: Warm/dry. HEAD: Atraumatic. Normocephalic. EYES: Pupils equal and round. No scleral icterus. No injection or drainage. ENT: No nasal bleeding or discharge. Mucous membranes pink and moist. Left facial droop NECK: Trachea midline. Airway widely patent. CARDIOVASCULAR: Regular rate and rhythm. 2/6 systolic murmur apex and lower left sternal border RESPIRATORY: No accessory muscle use. Clear to auscultation. Breath sounds equal bilaterally. Comfortable. GASTROINTESTINAL: Abdomen soft, non-tender, nondistended. Hepatic and splenic margins not palpable. Well-healed midline scar in the lower abdomen MUSCULOSKELETAL: No clubbing. No cyanosis. No edema. NEUROLOGICAL: Awake and alert, normal speech. Left facial droop. 4/5 strength left upper and lower extremity. Left hemisensory loss. Medications and IVs Current Medications Medications (Trade) Dose Ordered Sig/Ermelinda Route Start Time Stop Time Status Last Admin (NS Flush) 2 ml UNSCH PRN IV FLUSH 10/07/17 08:45 (NS Flush) 2 ml BID IV FLUSH 10/07/17 09:00 10/16/17 09:07 (Duoneb Neb) 1 ampule Q2HR NEB PRN INH 10/07/17 08:45 Miscellaneous Information 1 Q361D XX 10/07/17 08:45 10/07/17 08:45 (Chlorhexidine 2% Cloth) Taper DAILY@04 TOP 10/08/17 04:00 10/04/18 03:59 10/11/17 04:00 (Chlorhexidine 2% Cloth) 3 pack UNSCH PRN TOP 10/07/17 08:45 (Sangita-Colace) 1 tab BID PO 10/07/17 09:00 10/16/17 09:05 (Milk Of Magnesia Liq) 30 ml Q12H PRN PO 10/07/17 08:45 10/15/17 14:41 (Senokot) 17.2 mg Q12H PRN PO 10/07/17 08:45 (Dulcolax Supp) 10 mg DAILY PRN RECTAL 10/07/17 08:45 (Lactulose Liq) 30 ml DAILY PRN PO 10/07/17 08:45 10/16/17 09:04 (Trandate Inj) 20 mg Q4H PRN IV PUSH 10/07/17 08:45 10/14/17 10:36 (Ativan Inj) 0.5 mg Q4H PRN IV PUSH 10/07/17 10:30 10/12/17 23:10 (Zofran Inj) 4 mg Q6HR PRN IV PUSH 10/07/17 21:15 10/15/17 14:42 (Percocet 7.5-325 Mg) 1 tab Q6H PRN PO 10/08/17 12:15 10/16/17 06:34 (Keflex) 250 mg HS PO 10/09/17 21:00 10/15/17 21:06 (Vasotec) 20 mg BID PO 10/09/17 21:00 10/16/17 09:04 (Apresoline Inj) 20 mg Q4H PRN IV PUSH 10/09/17 17:15 10/14/17 10:02 Nicardipine HCl 25 mg/Sodium Chloride 250 ml @ 50 mls/hr TITRATE PRN IV 10/09/17 17:15 10/10/17 03:52 (Protonix) 40 mg DAILY PO 10/10/17 13:00 10/16/17 09:04 (Sodium Chloride) 1 gm Q12HR PO 10/11/17 10:15 10/16/17 09:04 (Lovenox Inj) 40 mg Q24H SQ 10/12/17 15:00 10/15/17 14:42 (Dilaudid Pf Inj) 1 mg Q4H PRN IV PUSH 10/13/17 11:30 10/16/17 09:06 (Apresoline) 100 mg Q12HR PO 10/13/17 11:30 10/16/17 09:05 (Mucinex Er) 600 mg BID PO 10/13/17 12:00 10/16/17 09:04 (Phenergan Inj) 25 mg Q6H PRN IM 10/13/17 15:00 10/15/17 08:56 (Lopressor) 50 mg Q12HR PO 10/14/17 21:00 10/16/17 09:04 (Catapres) 0.1 mg Q6HR PRN PO 10/14/17 12:00 A/P Assessment and Plan 1. Moderate Sized right basal ganglia hemorrhage 3.0 x 3.2 cm - CT of the head: moderate sixed right BG hemorrhage with mass effect on right lateral ventricle - Repeat CT of the head stable hemorrhage. CTA of the head and neck negative for aneurysm, focal stenosis at origin of Right JAYSON. No intervention needed at this time per Dr. Fitzgerald - MRI 10/09- subacute hematoma in the right posterior sylvian region 5.0 x 1.7 cm. Moderate cerebral edema. 6 mm midline shift to left - Neurosurgery Dr. Fitzgerald. Continue conservative management - PT/OT/Speech - C/o severe head ache- f/u MRI of brain. Use PRN Dilaudid and oxycodone - Hold 2% saline to keep Na above 140, Cleared for discharge by neurology and Neurosurgery. 2. Hypertensive Emergency/Hypertension/Cardiac Murmur at this time controlled. -Discontinued HCTZ due to Hyponatremia, - 2 D Echo to evaluate cardiac murmur-Normal EF Trace MR/TR -had Tachycardia increased Lopressor to 50 BID 3. Recurrent UTI on Cephalexin 250 mg Daily for UTI prophylaxis. DVT prophylaxis SCD GI prophylaxis with PPI Discussed with patient and her Mr. Lukas Piper all questions answered to the best of my abilities. also nurse Miss Manzo and Charge Nurse Miss Yin present. Discharge Planning Okay to discharge from Neurosurgery, Neurology and medically clear for discharge to Rehabilitation. Ravi Alarcon MD Oct 16, 2017 10:41
[2017-10-16 12:00] VITALS: BP 132/64; PULSE 82; RESP 16; TEMP 98.1; O2SAT 95
[2017-10-16] MEDS: ENOXAPARIN SODIUM 40 MG/0.4 ML SYRINGE SQ SCH (15:21)
[2017-10-16 16:00] VITALS: BP 130/60; PULSE 88; RESP 16; TEMP 99.2; O2SAT 95
[2017-10-16 20:00] VITALS: BP 161/82; PULSE 75; RESP 18; TEMP 98.5; O2SAT 96
[2017-10-16] MEDS: CEPHALEXIN MONOHYDRATE 250 MG CAP PO SCH (20:53)
[2017-10-16] MEDS: ONDANSETRON HCL 4 MG/2 ML VIAL IV PUSH PRN (23:07)
[2017-10-17] VITALS: BP 145/85; PULSE 86; RESP 20; TEMP 97
[2017-10-17 04:00] VITALS: BP 129/66; PULSE 78; RESP 18; TEMP 98.2; O2SAT 95
[2017-10-17] MEDS: CHLORHEXIDINE GLUCONATE 2 % 1 PACK (2 CLOTHS) TOP SCH (04:00)
[2017-10-17 08:32] VITALS: BP 166/79; PULSE 89; RESP 19; TEMP 98.1; O2SAT 97
--- NOTE | 2017-10-17 08:37 | HHI.PR ---
Subjective Remarks in no acute distress. has some headache. otherwise no other new complaints. Objective Vitals Vital Signs Date Time Temp Pulse Resp B/P (MAP) Pulse Ox O2 Delivery O2 Flow Rate FiO2 10/17/17 04:00 98.2 78 18 129/66 (87) 95 10/17/17 00:00 97.0 86 20 145/85 (105) 10/16/17 20:00 98.5 75 18 161/82 (108) 96 10/16/17 16:00 99.2 88 16 130/60 (83) 95 10/16/17 12:00 98.1 82 16 132/64 (86) 95 I/O 10/16/17 10/16/17 10/16/17 10/17/17 10/17/17 10/17/17 07:00 15:00 23:00 07:00 15:00 23:00 Intake Total 600 ml Balance 600 ml Intake Oral 600 ml # Voids 5 6 Result Diagram: 10/15/17 0715 Imaging Last Impressions Brain MRI 10/09/17 0000 Signed Impressions: Service Date/Time: Monday, October 09, 2017 10:58 - CONCLUSION: Large right posterior sylvian hematoma with evidence of both methemoglobin and deoxyhemoglobin. No focal abnormal areas of enhancement. Slight increase in midline shift towards the left, now measuring 6 mm (previously measured 4 mm). Aamir Diallo MD Head CT 10/08/17 0600 Signed Impressions: Service Date/Time: Sunday, October 08, 2017 04:04 - CONCLUSION: No significant change. Matthew Hutchison MD Neck CTA 10/07/17 0000 Signed Impressions: Service Date/Time: Saturday, October 07, 2017 12:57 - CONCLUSION: Normal examination. Bovine origin of the great vessels. Vic Serna MD Head CTA 10/07/17 0000 Signed Impressions: Service Date/Time: Saturday, October 07, 2017 12:57 - CONCLUSION: Somewhat unusual anatomy involving the right internal carotid bifurcation. 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 No evidence of aneurysm or etiology for subarachnoid hemorrhage is seen. Vic Serna MD Objective Remarks GENERAL: This is a well-nourished, well-developed patient, in no apparent distress. CARDIOVASCULAR: Regular rate and regular rhythm without murmurs, gallops, or rubs. RESPIRATORY: Clear to auscultation. Breath sounds equal bilaterally. No wheezes , rales, or rhonchi. GASTROINTESTINAL: Abdomen soft, non-tender, nondistended. Normal, active bowel sounds MUSCULOSKELETAL: Extremities without clubbing, cyanosis, or edema. NEURO: Alert & Oriented x4 to person, place, time, situation. Moves all ext x4 Procedures none Medications and IVs Current Medications Sodium Chloride 1,000 ml @ 70 mls/hr [id number] ONCE IV ; Start 10/07/17 at 07:45 ; Stop 10/07/17 at 22:02; Status DC Nicardipine HCl 25 mg/Sodium Chloride 250 ml @ 50 mls/hr TITRATE PRN IV Blood pressure management Last administered on 10/07/17 08:17; Start 10/07/17 at 08 :00; Stop 10/07/17 at 14:38; Status DC Acetaminophen 100 ml @ 400 mls/hr ONCE ONCE IV Last administered on 08:51; Start 10/07/17 at 08:15; Stop 10/07/17 at 08:29; Status DC Ondansetron HCl (Zofran Inj) 4 mg ONCE ONCE IV PUSH Last administered on 10/07 08:19; Start 10/07/17 at 08:15; Stop 10/07/17 at 08:16; Status DC Potassium Chloride/Sodium Chloride 1,000 ml @ 100 mls/hr Q10H IV Last administered on 10/11/17 12:42; Start 10/07/17 at 08:42; Stop 10/11/17 at 17 :54; Status DC Sodium Chloride (NS Flush) 2 ml UNSCH PRN IV FLUSH FLUSH AFTER USING IV ACCESS ; Start 10/07/17 at 08:45 Sodium Chloride (NS Flush) 2 ml BID IV FLUSH Last administered on 10/16/17 20: 57; Start 10/07/17 at 09:00 Pantoprazole Sodium (Protonix Inj) 40 mg DAILY IV PUSH Last administered on 08:39; Start 10/07/17 at 09:00; Stop 10/10/17 at 12:57; Status DC Albuterol/ Ipratropium (Duoneb Neb) 1 ampule Q2HR NEB PRN INH WHEEZING; Start 10/07/17 at 08:45 Miscellaneous Information 1 [id number] Last administered on 10/07/17 08:45; Start 10/07/17 at 08:45 Chlorhexidine Gluconate (Chlorhexidine 2% Cloth) Taper DAILY@04 TOP Last administered on 10/11/17 04:00; Start 10/08/17 at 04:00; Stop 10/04/18 at 03 :59 Chlorhexidine Gluconate (Chlorhexidine 2% Cloth) 3 pack UNSCH PRN TOP HYGIENIC CARE; Start 10/07/17 at 08:45 Senna/Docusate Sodium (Sangita-Colace) 1 tab BID PO Last administered on 20:53; Start 10/07/17 at 09:00 Magnesium Hydroxide (Milk Of Magnesia Liq) 30 ml Q12H PRN PO Mild constipation Last administered on 10/15/17 14:41; Start 10/07/17 at 08:45 Sennosides (Senokot) 17.2 mg Q12H PRN PO Moderate constipation; Start at 08:45 Bisacodyl (Dulcolax Supp) 10 mg DAILY PRN RECTAL SEVERE CONSITIPATION; Start 10/07/17 at 08:45 Lactulose (Lactulose Liq) 30 ml DAILY PRN PO SEVERE CONSITIPATION Last administered on 10/16/17 09:04; Start 10/07/17 at 08:45 Nicardipine HCl 25 mg/Sodium Chloride 250 ml @ 50 mls/hr TITRATE PRN IV Blood pressure management Last administered on 10/08/17 12:53; Start 10/07/17 at 08 :45; Stop 10/09/17 at 09:18; Status DC Labetalol HCl (Trandate Inj) 20 mg Q4H PRN IV PUSH SBP >160 Last administered on 10/14/17 10:36; Start 10/07/17 at 08:45; Stop 10/16/17 at 14:14; Status DC Potassium Chloride 100 ml @ 50 mls/hr Q2H PRN IV For Potassium 2.8 - 3.2 mEq/L ; Start 10/07/17 at 09:00; Stop 10/15/17 at 07:08; Status DC Potassium Chloride 100 ml @ 50 mls/hr Q2H PRN IV For Potassium 2.8 - 3.2 mEq/L ; Start 10/07/17 at 09:00; Stop 10/15/17 at 07:08; Status DC Potassium Bicarb/ Potassium Chloride (K-Lyte Cl Eff) 50 meq UNSCH PRN PO For Potassium 3.3 - 3.5 mEq/L; Start 10/07/17 at 09:00; Stop 10/15/17 at 07:08; Status DC Potassium Chloride 100 ml @ 25 mls/hr UNSCH PRN IV For Potassium 3.3 - 3.5 mEq /L Last administered on 10/12/17t 02:18; Start 10/07/17 at 09:00; Stop at 07:08; Status DC Potassium Chloride 100 ml @ 50 mls/hr Q2H PRN IV For Potassium 3.3 - 3.5 mEq/L ; Start 10/07/17 at 09:00; Stop 10/15/17 at 07:08; Status DC Magnesium Sulfate 4 gm/Sodium Chloride 100 ml @ 50 mls/hr UNSCH PRN IV For Magnesium 0.9 - 1.1 mg/dL; Start 10/07/17 at 09:00; Stop 10/15/17 at 07:08; Status DC Magnesium Oxide (Mag-Ox) 800 mg UNSCH PRN PO For Magnesium 1.2 - 1.6 mg/dL; Start 10/07/17 at 09:00; Stop 10/15/17 at 07:08; Status DC Magnesium Sulfate 2 gm/Sodium Chloride 100 ml @ 50 mls/hr UNSCH PRN IV For Magnesium 1.2 - 1.6 mg/dL; Start 10/07/17 at 09:00; Stop 10/15/17 at 07:08; Status DC Potassium Phosphate (K-Phos) 2,000 mg Q4H PRN PO For Phosphorus < 2.5 mg/dL; Start 10/07/17 at 09:00; Stop 10/15/17 at 07:08; Status DC Sodium Phosphate 30 mmol/Sodium Chloride 250 ml @ 42 mls/hr UNSCH PRN IV For Phosphorus < 2.5 mg/dL; Start 10/07/17 at 09:00; Stop 10/15/17 at 07:08; Status DC Potassium Phosphate (K-Phos) 2,000 mg UNSCH PRN PO/TUBE SEE LABEL COMMENTS; Start 10/07/17 at 09:00; Stop 10/15/17 at 07:08; Status DC Potassium Phosphate 30 mmol/ Sodium Chloride 260 ml @ 42 mls/hr UNSCH PRN IV SEE LABEL COMMENTS; Start 10/07/17 at 09:00; Stop 10/15/17 at 07:08; Status DC Lorazepam (Ativan Inj) 0.5 mg Q4H PRN IV PUSH Leg spasm Last administered on 23:10; Start 10/07/17 at 10:30 Iohexol (Omnipaque 350 Inj) 75 ml STK-MED ONCE IVCONTRAST Last administered on 10/07/17 13:10; Start 10/07/17 at 13:10; Stop 10/07/17 at 13:11; Status DC Ondansetron HCl (Zofran Inj) 4 mg Q6HR PRN IV PUSH nausea Last administered on 10/16/17 23:07; Start 10/07/17 at 21:15 Fentanyl Citrate (fentaNYL INJ) 25 mcg Q1H PRN IV PUSH PAIN SCALE 5 TO 10 Last administered on 10/09/17 05:37; Start 10/07/17 at 21:15; Stop 10/09/17 at 09 :18; Status DC Enalapril Maleate (Vasotec) 10 mg BID PO Last administered on 10/08/17 21:01 ; Start 10/08/17 at 12:15; Stop 10/09/17 at 09:18; Status DC Hydrochlorothiazide (Microzide) 12.5 mg DAILY PO Last administered on 09:14; Start 10/08/17 at 12:15; Stop 10/11/17 at 10:14; Status DC Oxycodone/ Acetaminophen (Percocet 7.5-325 Mg) 1 tab Q6H PRN PO pain 5-10 Last administered on 10/16/17 20:55; Start 10/08/17 at 12:15 Cephalexin Monohydrate (Keflex) 250 mg HS PO Last administered on 10/16/17 20: 53; Start 10/09/17 at 21:00 Cephalexin Monohydrate (Keflex) 250 mg ONCE ONCE PO Last administered on 10/09 13:03; Start 10/09/17 at 09:30; Stop 10/09/17 at 09:31; Status DC Enalapril Maleate (Vasotec) 20 mg BID PO Last administered on 10/16/17 20:53; Start 10/09/17 at 21:00 Hydromorphone HCl (Dilaudid Pf Inj) 1 mg Q4H PRN IV PUSH pain 6-10 Last administered on 10/09/17 10:46; Start 10/09/17 at 09:30; Stop 10/09/17 at 13 :55; Status DC Gadodiamide (Omniscan Pf Inj) 10 ml STK-MED ONCE IVCONTRAST Last administered on 10/09/17 11:11; Start 10/09/17 at 11:11; Stop 10/09/17 at 11:12; Status DC Hydromorphone HCl (Dilaudid Pf Inj) 2 mg Q4H PRN IV PUSH pain 6-10; Start at 17:30; Stop 10/09/17 at 17:30; Status DC Hydromorphone HCl (Dilaudid Pf Inj) 1.5 mg Q4H PRN IV PUSH pain 6-10 Last administered on 10/09/17 18:58; Start 10/09/17 at 17:30; Stop 10/10/17 at 12 :46; Status DC Hydralazine HCl (Apresoline Inj) 20 mg Q4H PRN IV PUSH SYS BP GREATER THAN 160 MMHG Last administered on 10/14/17 10:02; Start 10/09/17 at 17:15 Nicardipine HCl 25 mg/Sodium Chloride 250 ml @ 50 mls/hr TITRATE PRN IV Blood pressure management Last administered on 10/10/17 03:52; Start 10/09/17 at 17 :15; Stop 10/16/17 at 14:14; Status DC Carvedilol (Coreg) 6.25 mg Q12HR PO Last administered on 10/13/17 08:22; Start 10/10/17 at 12:30; Stop 10/13/17 at 11:29; Status DC Hydromorphone HCl (Dilaudid Pf Inj) 1 mg Q4H PRN IV PUSH pain 6-10 Last administered on 10/10/17 21:23; Start 10/10/17 at 13:30; Stop 10/11/17 at 10 :15; Status DC Pantoprazole Sodium (Protonix) 40 mg DAILY PO Last administered on 10/16/17 09 :04; Start 10/10/17 at 13:00 Sodium Chloride (Sodium Chloride) 1 gm Q12HR PO Last administered on 10/16/17 20:53; Start 10/11/17 at 10:15 Hydromorphone HCl (Dilaudid Pf Inj) 0.5 mg Q4H PRN IV PUSH pain 6-10 Last administered on 10/13/17 08:15; Start 10/11/17 at 13:30; Stop 10/13/17 at 11 :29; Status DC Sodium Chloride 188 meq/Sodium Chloride 1,047 ml @ 60 mls/hr [id number] IV Last administered on 10/13/17 18:33; Start 10/11/17 at 10:30; Stop 10/14/17 at 10: 32; Status DC Enoxaparin Sodium (Lovenox Inj) 40 mg Q24H SQ Last administered on 10/16/17 15 :21; Start 10/12/17 at 15:00 Metoprolol Tartrate (Lopressor) 25 mg Q12HR PO Last administered on 10/14/17 07:59; Start 10/13/17 at 11:30; Stop 10/14/17 at 10:33; Status DC Hydromorphone HCl (Dilaudid Pf Inj) 1 mg Q4H PRN IV PUSH Headache pain 6-10 Last administered on 10/16/17 09:06; Start 10/13/17 at 11:30; Stop 10/16/17 at 14:14; Status DC Hydralazine HCl (Apresoline) 100 mg Q12HR PO Last administered on 10/16/17 20: 54; Start 10/13/17 at 11:30 Guaifenesin (Mucinex Er) 600 mg BID PO Last administered on 10/16/17 20:53; Start 10/13/17 at 12:00 Promethazine HCl (Phenergan Inj) 25 mg Q6H PRN IM nausea Last administered on 10/15/17 08:56; Start 10/13/17 at 15:00 Metoprolol Tartrate (Lopressor) 50 mg Q12HR PO Last administered on 10/16/17t 20:53; Start 10/14/17 at 21:00 Clonidine (Catapres) 0.1 mg Q6HR PRN PO SBP > 160; Start 10/14/17 at 12:00 A/P Problem List: (1) Right basal ganglia hemorrhage (2) Hypertensive emergency ICD Code: I16.1 - Hypertensive emergency (3) Left hemiplegia ICD Code: G81.94 - Hemiplegia, unspecified affecting left nondominant side Assessment and Plan A/P 1. Moderate Sized right basal ganglia hemorrhage 3.0 x 3.2 cm - CT of the head: moderate sixed right BG hemorrhage with mass effect on right lateral ventricle - Repeat CT of the head stable hemorrhage. CTA of the head and neck negative for aneurysm, focal stenosis at origin of Right JAYSON. No intervention needed at this time per Dr. Fitzgerald - MRI 10/09- subacute hematoma in the right posterior sylvian region 5.0 x 1.7 cm. Moderate cerebral edema. 6 mm midline shift to left - Neurosurgery Dr. Fitzgerald. Continue conservative management - PT/OT/Speech - C/o severe head ache- f/u MRI of brain. Use PRN Dilaudid and oxycodone Cleared for discharge by neurology and Neurosurgery. 2. Hypertensive Emergency/Hypertension/Cardiac Murmur at this time controlled. -Discontinued HCTZ due to Hyponatremia, - Echo with EF 55%. - continue metoprolol,hydralazine and enalapril. 3. Recurrent UTI on Cephalexin 250 mg Daily for UTI prophylaxis. DVT prophylaxis SCD GI prophylaxis with PPI Discharge Planning dc to rehab when authorization received. see med list. f/u with pcp and neurology. d/w the patient. time spent 35 min. Heron Roa MD Oct 17, 2017 08:37
[2017-10-17] MEDS ORDERED: ENAL10TA PO (08:39)
[2017-10-17] MEDS ORDERED: HYDR-3801 PO (08:39)
[2017-10-17] MEDS ORDERED: NORC5TAB PO (08:39)
[2017-10-17] MEDS ORDERED: METO-309 PO (08:39)
--- NOTE | 2017-10-17 08:40 | HHI.DS ---
Discharge Summary Admission Date Oct 07, 2017 at 08:46 Discharge Date: Oct 17, 2017 Admitting Diagnosis intracerebral hemorrhage (1) Right basal ganglia hemorrhage Diagnosis: Principal (2) Hypertensive emergency ICD Code: I16.1 - Hypertensive emergency Diagnosis: Principal (3) Left hemiplegia ICD Code: G81.94 - Hemiplegia, unspecified affecting left nondominant side Diagnosis: Principal Procedures none Brief History - From Admission Patient is a 57-year-old female with past medical history significant for hypertension currently off medication, recurrent UTI on Keflex for prophylaxis. She was visiting her son who is admitted in the hospital and had abrupt onset of headache with left-sided hemiplegia. A stroke alert was initiated and patient was moved to the emergency department. A stat CT of the head showed moderate-sized, approximately 3.0 x 3.2 cm, right basal ganglia hemorrhage with mass effect on the right lateral ventricle. Blood work was unremarkable and coags were negative. Initial blood pressure was 190-200 systolic and patient was started on Cardene infusion. Dr. King neurology and Dr. Fitzgerald neurosurgery had been contacted and consulted by ED I evaluated the patient in the emergency department. Patient appears anxious but able to talk normally she has flaccid paralysis of the left side of body with left hemisensory loss. CT of the head was personally reviewed. Titrate Cardene to keep systolic blood pressure less than 150 and also add when necessary labetalol. Ativan when necessary for twitching of the lower extremity. I doubt any surgical intervention is warranted at this time. CTA of brain to rule aneurysm CBC/BMP: 10/15/17 0715 Significant Findings Laboratory Tests Test 10/15/17 07:15 Calcium Level 8.3 MG/DL (8.5-10.1) Imaging Last Impressions Brain MRI 10/09/17 0000 Signed Impressions: Service Date/Time: Monday, October 09, 2017 10:58 - CONCLUSION: Large right posterior sylvian hematoma with evidence of both methemoglobin and deoxyhemoglobin. No focal abnormal areas of enhancement. Slight increase in midline shift towards the left, now measuring 6 mm (previously measured 4 mm). Aamir Diallo MD Head CT 10/08/17 0600 Signed Impressions: Service Date/Time: Sunday, October 08, 2017 04:04 - CONCLUSION: No significant change. Matthew Hutchison MD Neck CTA 10/07/17 0000 Signed Impressions: Service Date/Time: Saturday, October 07, 2017 12:57 - CONCLUSION: Normal examination. Bovine origin of the great vessels. Vic Serna MD Head CTA 10/07/17 0000 Signed Impressions: Service Date/Time: Saturday, October 07, 2017 12:57 - CONCLUSION: Somewhat unusual anatomy involving the right internal carotid bifurcation. 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 No evidence of aneurysm or etiology for subarachnoid hemorrhage is seen. Vic Serna MD PE at Discharge GENERAL: This is a well-nourished, well-developed patient, in no apparent distress. CARDIOVASCULAR: Regular rate and regular rhythm without murmurs, gallops, or rubs. RESPIRATORY: Clear to auscultation. Breath sounds equal bilaterally. No wheezes , rales, or rhonchi. GASTROINTESTINAL: Abdomen soft, non-tender, nondistended. Normal, active bowel sounds MUSCULOSKELETAL: Extremities without clubbing, cyanosis, or edema. NEURO: Alert & Oriented x4 to person, place, time, situation. Moves all ext x4 Hospital Course 1. Moderate Sized right basal ganglia hemorrhage 3.0 x 3.2 cm - [address] of the head: moderate sixed right BG hemorrhage with mass effect on right lateral ventricle - Repeat CT of the head stable hemorrhage. CTA of the head and neck negative for aneurysm, focal stenosis at origin of Right JAYSON. No intervention needed at this time per Dr. Fitzgerald - MRI 10/09- subacute hematoma in the right posterior sylvian region 5.0 x 1.7 cm. Moderate cerebral edema. 6 mm midline shift to left - Neurosurgery Dr. Fitzgerald. Continue conservative management - PT/OT/Speech - C/o severe head ache- f/u MRI of brain. Use PRN Dilaudid and oxycodone - Hold 2% saline to keep Na above 140, Cleared for discharge by neurology and Neurosurgery. 2. Hypertensive Emergency/Hypertension/Cardiac Murmur at this time controlled. -Discontinued HCTZ due to Hyponatremia, - 2 D Echo to evaluate cardiac murmur-Normal EF Trace MR/TR -had Tachycardia increased Lopressor to 50 BID 3. Recurrent UTI on Cephalexin 250 mg Daily for UTI prophylaxis. DVT prophylaxis SCD GI prophylaxis with PPI Pt Condition on Discharge: Stable Discharge Disposition: Discharge to SNF Discharge Time: > 30 minutes Discharge Instructions DIET: Follow Instructions for: Heart Healthy Diet Speech Therapy-Diet Recommends: Regular Activities you can perform: Regular-No Restrictions Other Activity Instructions: Follow Physical Therapy recommendations for discharge. Follow up Referrals: Neurology PCP Follow-up New Medications: Hydrocodone-Acetaminophen ([place]) 5 Mg-325 Mg Tab 1 TAB PO Q6H PRN for PAIN, #15 TAB 0 Refills Enalapril (Enalapril) 10 Mg Tab 20 MG PO BID for hypertension for 30 Days, #120 TAB 0 Refills Hydralazine (Hydralazine) 100 Mg Tab 100 MG PO Q12HR for hypertension for 30 Days, TAB 0 Refills Take with meals Metoprolol Tartrate (Lopressor) 50 Mg Tab 50 MG PO Q12HR for hypertension for 30 Days, TAB 0 Refills Continued Medications: Cephalexin (Keflex) 250 Mg Cap 250 MG PO HS, CAP 0 Refills Heron Roa MD Oct 17, 2017 08:40
[2017-10-17] MEDS: hydrALAZINE HCL 100 MG TAB PO SCH ×2 (09:28→21:23)
[2017-10-17] MEDS: guaiFENesin E.R. 600 MG TAB PO SCH ×2 (09:28→21:23)
[2017-10-17] MEDS: SODIUM CHLORIDE 1 GRAM TAB PO SCH ×2 (09:28→21:23)
[2017-10-17] MEDS: METOPROLOL TARTRATE 50 MG TAB PO SCH ×2 (09:28→21:23)
[2017-10-17] MEDS: PANTOPRAZOLE SOD 40 MG DELAYED RELEASE TAB PO SCH (09:29)
[2017-10-17] MEDS: SODIUM CHLORIDE 0.9% FLUSH 10 ML FLUSH IV FLUSH SCH ×2 (09:29→21:23)
[2017-10-17] MEDS: DOCUSATE SODIUM 50 MG/SENNA 8.6 MG TAB PO SCH ×2 (09:29→21:23)
[2017-10-17] MEDS: ENALAPRIL MALEATE 10 MG TAB PO SCH ×2 (09:31→21:24)
[2017-10-17] MEDS: oxyCODONE/ACETAMINOPHEN 7.5 MG/325 MG TAB PO PRN ×3 (09:35→21:36)
[2017-10-17] MEDS: ONDANSETRON HCL 4 MG/2 ML VIAL IV PUSH PRN (09:35)
--- NOTE | 2017-10-17 10:46 | HHI.NSPN ---
(Raman Ferrell) History Chief Complaint: Fronal headaches, ICH. (Raman Ferrell) Interval History This is a 57-year-old female who was visiting her son in the hospital when she had an abrupt onset of left-sided hemiplegia and neglect and reportedly some twitching and shaking in the right side, but these were not related as seizures. She has a dysarthric and slurred speech and confusion along with complaints of headache. She was taken to the emergency room where she was very hypertensive with an initial blood pressure of 215/112 at one point. Her hypertension was regulated and CT scan of the head obtained that reveals a 3.2 cm right basal ganglia hemorrhage. The ventricles are small and not dilated and there is no intraventricular hemorrhage noted. She was admitted to the surgical intensive care unit for hemodynamic and neurologic monitoring. Subsequent CT angiogram of the brain as well as the carotids has also been obtained and no underlying aneurysm or vascular abnormality is noted with some areas of focal stenosis in the right anterior cerebral artery. The patient is lethargic and has also received some Ativan for shivers and shakes but is easily arousable. A detailed history is difficult to obtain from her. 10/08/17: Awake and alert. Complains of frontal headaches. Nausea but no vomiting today. Left hemiparesis pt states improved some. 10/09/17: Complains of frontal headache and nausea no vomiting. Left hemiparesis stable. 10/10/17: Pt awakens to voice. States headaches improved today. No nausea but poor po intake. Left hemiparesis. Pt back on Cardene drip. 10/11/17: Pt awakens to voice, complains of frontal headaches. Intermittent nausea. Left hemiparesis stable. 10/12/17: Pt awake. She is very frustrated and agitated this morning. Poor insight into her current condition, wants to go home. Complains of headaches. Pt off Cardene but requiring IV antihypertensives. 10/13/17: Pt awake. States she woke up with a frontal headache and nausea No paresthesias. Left hemiparesis improving. Pt was less agitated and anxious yesterday when came by. 10/14/17: Patient awake and alert. Complains of frontal headache and nausea. Stable left hemiparesis. She moves her right side well. Patient still intermittently with periods of agitation and frustration. 10/17/17: Pt awake and alert. Complains of headaches and nausea but not any worse. Left hemiparesis is improving. Pt states they are working on transfer to inpatient rehab in [place]. (Raman Ferrell) Review of Systems General: Negative for: fever, chills, insomnia Respiratory: Negative for: shortness of breath, cough, sputum Cardiovascular: Negative for: chest pain Gastrointestinal: Positive for: nausea, Negative for: vomitting, diarrhea, constipation (Raman Ferrell) Exam Results Vital Signs Date Time Temp Pulse Resp B/P (MAP) Pulse Ox O2 Delivery O2 Flow Rate FiO2 10/17/17 08:32 98.1 89 19 166/79 (108) 97 10/14/17 07:44 21 (Raman Ferrell) Physical Examination General: Pt resting comfortably in bed in NAD. Eyes: Pupils equal. Sclera anicteric. Resp: CTA bilaterally Heart: NSR no murmurs Abd: Soft positive bs Skin: No cyanosis or erythema Muscle: Left hemiparesis, improving but still weak 4-/5 LUE 4/5 LLE. Moves right side well 5/5. Neuro: Pt awake and alert. Pupils 3mm bilaterally reactive bilaterally. Left facial paresis improving. Follows simple commands. Speech clear and appropriate. (Raman Ferrell) Lab, Micro, Other Results Last Impressions Brain MRI 10/09/17 0000 Signed Impressions: Service Date/Time: Monday, October 09, 2017 10:58 - CONCLUSION: Large right posterior sylvian hematoma with evidence of both methemoglobin and deoxyhemoglobin. No focal abnormal areas of enhancement. Slight increase in midline shift towards the left, now measuring 6 mm (previously measured 4 mm). Aamir Diallo MD Head CT 10/08/17 0600 Signed Impressions: Service Date/Time: Sunday, October 08, 2017 04:04 - CONCLUSION: No significant change. Matthew Hutchison MD Neck CTA 10/07/17 0000 Signed Impressions: Service Date/Time: Saturday, October 07, 2017 12:57 - CONCLUSION: Normal examination. Bovine origin of the great vessels. Vic Serna MD Head CTA 10/07/17 0000 Signed Impressions: Service Date/Time: Saturday, October 07, 2017 12:57 - CONCLUSION: Somewhat unusual anatomy involving the right internal carotid bifurcation. 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 No evidence of aneurysm or etiology for subarachnoid hemorrhage is seen. Vic Serna MD 10/17/17 10/17/17 10/18/17 14:59 22:59 06:59 # Voids 2 # Bowel Movements 1 (Raman Ferrell) Medical Decision Making Impression and Plan A: 1. 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 Follow up CT head without significant progression. 2. Unregulated hypertension 3. Recurrent urinary tract infection on prophylactic antibiotic therapy. PLAN Continue with close neuro checks. Continue with blood pressure control to avoid rebleed and clinical deterioration. Rehab efforts to improve left hemiparesis. (Raman Ferrell) Attending Statement The exam, history, and the medical decision-making described in the above note were completed with the assistance of the mid-level provider. I reviewed and agree with the findings presented. I attest that I had a [id number] encounter with the patient on the same day, and personally performed and documented my assessment and findings in the medical record. (Alejandro Fitzgerald MD) Raman Ferrell Oct 17, 2017 10:46 Alejandro Fitzgerald MD Oct 17, 2017 16:57
[2017-10-17] MEDS: ENOXAPARIN SODIUM 40 MG/0.4 ML SYRINGE SQ SCH (15:33)
[2017-10-17] MEDS ORDERED: oxyCODONE/ACETAMINOPHEN 5 MG/325 MG TAB PO ONE (17:30)
[2017-10-17] MEDS: CEPHALEXIN MONOHYDRATE 250 MG CAP PO SCH (21:23)
[2017-10-17 22:00] VITALS: BP 178/86; PULSE 78; RESP 18; TEMP 98.6; O2SAT 96
[2017-10-18] VITALS (7 sets, daily range): BP systolic 109–179; BP diastolic 59–91; PULSE 76–104; RESP 17–18; TEMP 98.1–98.4; O2SAT 95–97
[2017-10-18] MEDS: CHLORHEXIDINE GLUCONATE 2 % 1 PACK (2 CLOTHS) TOP SCH (04:00)
[2017-10-18] MEDS: oxyCODONE/ACETAMINOPHEN 7.5 MG/325 MG TAB PO PRN ×4 (04:50→22:27)
[2017-10-18] MEDS: ENALAPRIL MALEATE 10 MG TAB PO SCH ×2 (08:07→20:39)
[2017-10-18] MEDS: SODIUM CHLORIDE 0.9% FLUSH 10 ML FLUSH IV FLUSH SCH ×2 (08:07→20:41)
[2017-10-18] MEDS: METOPROLOL TARTRATE 50 MG TAB PO SCH ×2 (08:08→20:39)
[2017-10-18] MEDS: guaiFENesin E.R. 600 MG TAB PO SCH ×2 (08:08→20:39)
[2017-10-18] MEDS: SODIUM CHLORIDE 1 GRAM TAB PO SCH ×2 (08:08→20:39)
[2017-10-18] MEDS: PANTOPRAZOLE SOD 40 MG DELAYED RELEASE TAB PO SCH (08:08)
[2017-10-18] MEDS: DOCUSATE SODIUM 50 MG/SENNA 8.6 MG TAB PO SCH ×2 (08:08→20:39)
[2017-10-18] MEDS: hydrALAZINE HCL 100 MG TAB PO SCH ×2 (08:08→20:39)
--- NOTE | 2017-10-18 08:39 | HHI.PR ---
Subjective Remarks in no acute distress. has some headache. otherwise no other new complaints. Objective Vitals Vital Signs Date Time Temp Pulse Resp B/P (MAP) Pulse Ox O2 Delivery O2 Flow Rate FiO2 10/18/17 08:03 98.4 81 17 169/88 (115) 95 10/18/17 06:50 98.3 80 18 165/78 (107) 95 10/18/17 00:37 98.2 76 18 123/73 (90) 95 10/17/17 22:00 98.6 78 18 178/86 (116) 96 10/17/17 18:51 18 10/17/17 16:35 18 I/O 10/17/17 10/17/17 10/17/17 10/18/17 10/18/17 10/18/17 07:00 15:00 23:00 07:00 15:00 23:00 # Voids 3 1 1 1 # Bowel Movements 1 Result Diagram: 10/15/17 0715 Imaging Last Impressions Brain MRI 10/09/17 0000 Signed Impressions: Service Date/Time: Monday, October 09, 2017 10:58 - CONCLUSION: Large right posterior sylvian hematoma with evidence of both methemoglobin and deoxyhemoglobin. No focal abnormal areas of enhancement. Slight increase in midline shift towards the left, now measuring 6 mm (previously measured 4 mm). Aamir Diallo MD Head CT 10/08/17 0600 Signed Impressions: Service Date/Time: Sunday, October 08, 2017 04:04 - CONCLUSION: No significant change. Matthew Hutchison MD Neck CTA 10/07/17 0000 Signed Impressions: Service Date/Time: Saturday, October 07, 2017 12:57 - CONCLUSION: Normal examination. Bovine origin of the great vessels. Vic Serna MD Head CTA 10/07/17 0000 Signed Impressions: Service Date/Time: Saturday, October 07, 2017 12:57 - CONCLUSION: Somewhat unusual anatomy involving the right internal carotid bifurcation. 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 No evidence of aneurysm or etiology for subarachnoid hemorrhage is seen. Vic Serna MD Objective Remarks GENERAL: This is a well-nourished, well-developed patient, in no apparent distress. CARDIOVASCULAR: Regular rate and regular rhythm without murmurs, gallops, or rubs. RESPIRATORY: Clear to auscultation. Breath sounds equal bilaterally. No wheezes , rales, or rhonchi. GASTROINTESTINAL: Abdomen soft, non-tender, nondistended. Normal, active bowel sounds MUSCULOSKELETAL: Extremities without clubbing, cyanosis, or edema. NEURO: Alert & Oriented x4 to person, place, time, situation. Moves all ext x4 Procedures none Medications and IVs Current Medications Sodium Chloride 1,000 ml @ 70 mls/hr [id number] ONCE IV ; Start 10/07/17 at 07:45 ; Stop 10/07/17 at 22:02; Status DC Nicardipine HCl 25 mg/Sodium Chloride 250 ml @ 50 mls/hr TITRATE PRN IV Blood pressure management Last administered on 10/07/17 08:17; Start 10/07/17 at 08 :00; Stop 10/07/17 at 14:38; Status DC Acetaminophen 100 ml @ 400 mls/hr ONCE ONCE IV Last administered on 08:51; Start 10/07/17 at 08:15; Stop 10/07/17 at 08:29; Status DC Ondansetron HCl (Zofran Inj) 4 mg ONCE ONCE IV PUSH Last administered on 10/07 08:19; Start 10/07/17 at 08:15; Stop 10/07/17 at 08:16; Status DC Potassium Chloride/Sodium Chloride 1,000 ml @ 100 mls/hr Q10H IV Last administered on 10/11/17 12:42; Start 10/07/17 at 08:42; Stop 10/11/17 at 17 :54; Status DC Sodium Chloride (NS Flush) 2 ml UNSCH PRN IV FLUSH FLUSH AFTER USING IV ACCESS ; Start 10/07/17 at 08:45 Sodium Chloride (NS Flush) 2 ml BID IV FLUSH Last administered on 10/18/17 08: 07; Start 10/07/17 at 09:00 Pantoprazole Sodium (Protonix Inj) 40 mg DAILY IV PUSH Last administered on 08:39; Start 10/07/17 at 09:00; Stop 10/10/17 at 12:57; Status DC Albuterol/ Ipratropium (Duoneb Neb) 1 ampule Q2HR NEB PRN INH WHEEZING; Start 10/07/17 at 08:45 Miscellaneous Information 1 [id number] Last administered on 10/07/17 08:45; Start 10/07/17 at 08:45 Chlorhexidine Gluconate (Chlorhexidine 2% Cloth) Taper DAILY@04 TOP Last administered on 10/11/17 04:00; Start 10/08/17 at 04:00; Stop 10/04/18 at 03 :59 Chlorhexidine Gluconate (Chlorhexidine 2% Cloth) 3 pack UNSCH PRN TOP HYGIENIC CARE; Start 10/07/17 at 08:45 Senna/Docusate Sodium (Sangita-Colace) 1 tab BID PO Last administered on 08:08; Start 10/07/17 at 09:00 Magnesium Hydroxide (Milk Of Magnesia Liq) 30 ml Q12H PRN PO Mild constipation Last administered on 10/15/17 14:41; Start 10/07/17 at 08:45 Sennosides (Senokot) 17.2 mg Q12H PRN PO Moderate constipation; Start at 08:45 Bisacodyl (Dulcolax Supp) 10 mg DAILY PRN RECTAL SEVERE CONSITIPATION; Start 10/07/17 at 08:45 Lactulose (Lactulose Liq) 30 ml DAILY PRN PO SEVERE CONSITIPATION Last administered on 10/16/17 09:04; Start 10/07/17 at 08:45 Nicardipine HCl 25 mg/Sodium Chloride 250 ml @ 50 mls/hr TITRATE PRN IV Blood pressure management Last administered on 10/08/17 12:53; Start 10/07/17 at 08 :45; Stop 10/09/17 at 09:18; Status DC Labetalol HCl (Trandate Inj) 20 mg Q4H PRN IV PUSH SBP >160 Last administered on 10/14/17 10:36; Start 10/07/17 at 08:45; Stop 10/16/17 at 14:14; Status DC Potassium Chloride 100 ml @ 50 mls/hr Q2H PRN IV For Potassium 2.8 - 3.2 mEq/L ; Start 10/07/17 at 09:00; Stop 10/15/17 at 07:08; Status DC Potassium Chloride 100 ml @ 50 mls/hr Q2H PRN IV For Potassium 2.8 - 3.2 mEq/L ; Start 10/07/17 at 09:00; Stop 10/15/17 at 07:08; Status DC Potassium Bicarb/ Potassium Chloride (K-Lyte Cl Eff) 50 meq UNSCH PRN PO For Potassium 3.3 - 3.5 mEq/L; Start 10/07/17 at 09:00; Stop 10/15/17 at 07:08; Status DC Potassium Chloride 100 ml @ 25 mls/hr UNSCH PRN IV For Potassium 3.3 - 3.5 mEq /L Last administered on 10/12/17t 02:18; Start 10/07/17 at 09:00; Stop at 07:08; Status DC Potassium Chloride 100 ml @ 50 mls/hr Q2H PRN IV For Potassium 3.3 - 3.5 mEq/L ; Start 10/07/17 at 09:00; Stop 10/15/17 at 07:08; Status DC Magnesium Sulfate 4 gm/Sodium Chloride 100 ml @ 50 mls/hr UNSCH PRN IV For Magnesium 0.9 - 1.1 mg/dL; Start 10/07/17 at 09:00; Stop 10/15/17 at 07:08; Status DC Magnesium Oxide (Mag-Ox) 800 mg UNSCH PRN PO For Magnesium 1.2 - 1.6 mg/dL; Start 10/07/17 at 09:00; Stop 10/15/17 at 07:08; Status DC Magnesium Sulfate 2 gm/Sodium Chloride 100 ml @ 50 mls/hr UNSCH PRN IV For Magnesium 1.2 - 1.6 mg/dL; Start 10/07/17 at 09:00; Stop 10/15/17 at 07:08; Status DC Potassium Phosphate (K-Phos) 2,000 mg Q4H PRN PO For Phosphorus < 2.5 mg/dL; Start 10/07/17 at 09:00; Stop 10/15/17 at 07:08; Status DC Sodium Phosphate 30 mmol/Sodium Chloride 250 ml @ 42 mls/hr UNSCH PRN IV For Phosphorus < 2.5 mg/dL; Start 10/07/17 at 09:00; Stop 10/15/17 at 07:08; Status DC Potassium Phosphate (K-Phos) 2,000 mg UNSCH PRN PO/TUBE SEE LABEL COMMENTS; Start 10/07/17 at 09:00; Stop 10/15/17 at 07:08; Status DC Potassium Phosphate 30 mmol/ Sodium Chloride 260 ml @ 42 mls/hr UNSCH PRN IV SEE LABEL COMMENTS; Start 10/07/17 at 09:00; Stop 10/15/17 at 07:08; Status DC Lorazepam (Ativan Inj) 0.5 mg Q4H PRN IV PUSH Leg spasm Last administered on 23:10; Start 10/07/17 at 10:30 Iohexol (Omnipaque 350 Inj) 75 ml STK-MED ONCE IVCONTRAST Last administered on 10/07/17 13:10; Start 10/07/17 at 13:10; Stop 10/07/17 at 13:11; Status DC Ondansetron HCl (Zofran Inj) 4 mg Q6HR PRN IV PUSH nausea Last administered on 10/17/17 09:35; Start 10/07/17 at 21:15 Fentanyl Citrate (fentaNYL INJ) 25 mcg Q1H PRN IV PUSH PAIN SCALE 5 TO 10 Last administered on 10/09/17 05:37; Start 10/07/17 at 21:15; Stop 10/09/17 at 09 :18; Status DC Enalapril Maleate (Vasotec) 10 mg BID PO Last administered on 10/08/17 21:01 ; Start 10/08/17 at 12:15; Stop 10/09/17 at 09:18; Status DC Hydrochlorothiazide (Microzide) 12.5 mg DAILY PO Last administered on 09:14; Start 10/08/17 at 12:15; Stop 10/11/17 at 10:14; Status DC Oxycodone/ Acetaminophen (Percocet 7.5-325 Mg) 1 tab Q6H PRN PO pain 5-10 Last administered on 10/18/17 04:50; Start 10/08/17 at 12:15 Cephalexin Monohydrate (Keflex) 250 mg HS PO Last administered on 10/17/17 21: 23; Start 10/09/17 at 21:00 Cephalexin Monohydrate (Keflex) 250 mg ONCE ONCE PO Last administered on 10/09 13:03; Start 10/09/17 at 09:30; Stop 10/09/17 at 09:31; Status DC Enalapril Maleate (Vasotec) 20 mg BID PO Last administered on 10/18/17 08:07; Start 10/09/17 at 21:00 Hydromorphone HCl (Dilaudid Pf Inj) 1 mg Q4H PRN IV PUSH pain 6-10 Last administered on 10/09/17 10:46; Start 10/09/17 at 09:30; Stop 10/09/17 at 13 :55; Status DC Gadodiamide (Omniscan Pf Inj) 10 ml STK-MED ONCE IVCONTRAST Last administered on 10/09/17 11:11; Start 10/09/17 at 11:11; Stop 10/09/17 at 11:12; Status DC Hydromorphone HCl (Dilaudid Pf Inj) 2 mg Q4H PRN IV PUSH pain 6-10; Start at 17:30; Stop 10/09/17 at 17:30; Status DC Hydromorphone HCl (Dilaudid Pf Inj) 1.5 mg Q4H PRN IV PUSH pain 6-10 Last administered on 10/09/17 18:58; Start 10/09/17 at 17:30; Stop 10/10/17 at 12 :46; Status DC Hydralazine HCl (Apresoline Inj) 20 mg Q4H PRN IV PUSH SYS BP GREATER THAN 160 MMHG Last administered on 10/14/17 10:02; Start 10/09/17 at 17:15 Nicardipine HCl 25 mg/Sodium Chloride 250 ml @ 50 mls/hr TITRATE PRN IV Blood pressure management Last administered on 10/10/17 03:52; Start 10/09/17 at 17 :15; Stop 10/16/17 at 14:14; Status DC Carvedilol (Coreg) 6.25 mg Q12HR PO Last administered on 10/13/17 08:22; Start 10/10/17 at 12:30; Stop 10/13/17 at 11:29; Status DC Hydromorphone HCl (Dilaudid Pf Inj) 1 mg Q4H PRN IV PUSH pain 6-10 Last administered on 10/10/17 21:23; Start 10/10/17 at 13:30; Stop 10/11/17 at 10 :15; Status DC Pantoprazole Sodium (Protonix) 40 mg DAILY PO Last administered on 10/18/17 08 :08; Start 10/10/17 at 13:00 Sodium Chloride (Sodium Chloride) 1 gm Q12HR PO Last administered on 10/18/17 08:08; Start 10/11/17 at 10:15 Hydromorphone HCl (Dilaudid Pf Inj) 0.5 mg Q4H PRN IV PUSH pain 6-10 Last administered on 10/13/17 08:15; Start 10/11/17 at 13:30; Stop 10/13/17 at 11 :29; Status DC Sodium Chloride 188 meq/Sodium Chloride 1,047 ml @ 60 mls/hr [id number] IV Last administered on 10/13/17 18:33; Start 10/11/17 at 10:30; Stop 10/14/17 at 10: 32; Status DC Enoxaparin Sodium (Lovenox Inj) 40 mg Q24H SQ Last administered on 10/17/17 15 :33; Start 10/12/17 at 15:00 Metoprolol Tartrate (Lopressor) 25 mg Q12HR PO Last administered on 10/14/17 07:59; Start 10/13/17 at 11:30; Stop 10/14/17 at 10:33; Status DC Hydromorphone HCl (Dilaudid Pf Inj) 1 mg Q4H PRN IV PUSH Headache pain 6-10 Last administered on 10/16/17 09:06; Start 10/13/17 at 11:30; Stop 10/16/17 at 14:14; Status DC Hydralazine HCl (Apresoline) 100 mg Q12HR PO Last administered on 10/18/17 08: 08; Start 10/13/17 at 11:30 Guaifenesin (Mucinex Er) 600 mg BID PO Last administered on 10/18/17 08:08; Start 10/13/17 at 12:00 Promethazine HCl (Phenergan Inj) 25 mg Q6H PRN IM nausea Last administered on 10/15/17 08:56; Start 10/13/17 at 15:00 Metoprolol Tartrate (Lopressor) 50 mg Q12HR PO Last administered on 10/18/17 08:08; Start 10/14/17 at 21:00 Clonidine (Catapres) 0.1 mg Q6HR PRN PO SBP > 160; Start 10/14/17 at 12:00 Oxycodone/ Acetaminophen (Percocet 5-325 Mg) 1 tab NOW ONCE PO Last administered on 10/17/17 17:48; Start 10/17/17 at 17:30; Stop 10/17/17 at 17:31 ; Status DC A/P Problem List: (1) Right basal ganglia hemorrhage (2) Hypertensive emergency ICD Code: I16.1 - Hypertensive emergency (3) Left hemiplegia ICD Code: G81.94 - Hemiplegia, unspecified affecting left nondominant side Assessment and Plan A/P 1. Moderate Sized right basal ganglia hemorrhage 3.0 x 3.2 cm - CT of the head: moderate sixed right BG hemorrhage with mass effect on right lateral ventricle - Repeat CT of the head stable hemorrhage. CTA of the head and neck negative for aneurysm, focal stenosis at origin of Right JAYSON. No intervention needed at this time per Dr. Fitzgerald - MRI 10/09- subacute hematoma in the right posterior sylvian region 5.0 x 1.7 cm. Moderate cerebral edema. 6 mm midline shift to left - Neurosurgery Dr. Fitzgerald. Continue conservative management - PT/OT/Speech Cleared for discharge by neurology and Neurosurgery. 2. Hypertensive Emergency/Hypertension/Cardiac Murmur at this time controlled. -Discontinued HCTZ due to Hyponatremia, - Echo with EF 55%. - continue metoprolol,hydralazine and enalapril. 3. Recurrent UTI on Cephalexin 250 mg Daily for UTI prophylaxis. DVT prophylaxis SCD GI prophylaxis with PPI Discharge Planning dc to rehab when authorization received. see med list. f/u with pcp and neurology. d/w the patient. time spent 35 min. Heron Roa MD Oct 18, 2017 08:39
[2017-10-18] MEDS: ENOXAPARIN SODIUM 40 MG/0.4 ML SYRINGE SQ SCH (14:30)
[2017-10-18] MEDS: ONDANSETRON HCL 4 MG/2 ML VIAL IV PUSH PRN (15:13)
[2017-10-18] MEDS: CEPHALEXIN MONOHYDRATE 250 MG CAP PO SCH (20:39)
[2017-10-18] MEDS: MAGNESIUM HYDROXIDE SUSP 30 ML CUP PO PRN (20:42)
[2017-10-19] VITALS: BP 129/74; PULSE 82; RESP 20; TEMP 98.6; O2SAT 96
[2017-10-19 04:00] VITALS: BP 149/70; PULSE 75; RESP 20; TEMP 97.9; O2SAT 96
[2017-10-19] MEDS: CHLORHEXIDINE GLUCONATE 2 % 1 PACK (2 CLOTHS) TOP SCH (04:00)
[2017-10-19] MEDS: oxyCODONE/ACETAMINOPHEN 7.5 MG/325 MG TAB PO PRN (07:25)
[2017-10-19] MEDS: ENALAPRIL MALEATE 10 MG TAB PO SCH (08:30)
[2017-10-19] MEDS: METOPROLOL TARTRATE 50 MG TAB PO SCH (08:30)
[2017-10-19] MEDS: PANTOPRAZOLE SOD 40 MG DELAYED RELEASE TAB PO SCH (08:30)
[2017-10-19] MEDS: guaiFENesin E.R. 600 MG TAB PO SCH (08:30)
[2017-10-19] MEDS: SODIUM CHLORIDE 1 GRAM TAB PO SCH (08:30)
[2017-10-19] MEDS: hydrALAZINE HCL 100 MG TAB PO SCH (08:30)
[2017-10-19] MEDS: DOCUSATE SODIUM 50 MG/SENNA 8.6 MG TAB PO SCH (08:30)
[2017-10-19] MEDS: SODIUM CHLORIDE 0.9% FLUSH 10 ML FLUSH IV FLUSH SCH (08:31)
[2017-10-19 08:53] VITALS: BP 171/82; PULSE 77; RESP 18; TEMP 98.4; O2SAT 98
--- NOTE | 2017-10-19 09:10 | HHI.PR ---
Subjective Remarks in no acute distress. has some headache. Objective Vitals Vital Signs Date Time Temp Pulse Resp B/P (MAP) Pulse Ox O2 Delivery O2 Flow Rate FiO2 10/19/17 08:53 98.4 77 18 171/82 (111) 98 10/19/17 04:00 97.9 75 20 149/70 (96) 96 10/19/17 00:00 98.6 82 20 129/74 (92) 96 10/18/17 20:05 98.1 92 18 179/91 (120) 95 10/18/17 15:42 98.1 104 18 128/59 (82) 97 10/18/17 12:41 18 10/18/17 12:29 98.2 80 18 139/78 (98) 96 10/18/17 09:34 109/59 (76) I/O 10/18/17 10/18/17 10/18/17 10/19/17 10/19/17 10/19/17 07:00 15:00 23:00 07:00 15:00 23:00 Intake Total 240 ml Balance 240 ml Intake Oral 240 ml # Voids 1 2 2 Result Diagram: 10/15/17 0715 Imaging Last Impressions Brain MRI 10/09/17 0000 Signed Impressions: Service Date/Time: Monday, October 09, 2017 10:58 - CONCLUSION: Large right posterior sylvian hematoma with evidence of both methemoglobin and deoxyhemoglobin. No focal abnormal areas of enhancement. Slight increase in midline shift towards the left, now measuring 6 mm (previously measured 4 mm). Aamir Diallo MD Head CT 10/08/17 0600 Signed Impressions: Service Date/Time: Sunday, October 08, 2017 04:04 - CONCLUSION: No significant change. Matthew Hutchison MD Neck CTA 10/07/17 0000 Signed Impressions: Service Date/Time: Saturday, October 07, 2017 12:57 - CONCLUSION: Normal examination. Bovine origin of the great vessels. Vic Serna MD Head CTA 10/07/17 0000 Signed Impressions: Service Date/Time: Saturday, October 07, 2017 12:57 - CONCLUSION: Somewhat unusual anatomy involving the right internal carotid bifurcation. 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 No evidence of aneurysm or etiology for subarachnoid hemorrhage is seen. Vic Serna MD Objective Remarks GENERAL: This is a well-nourished, well-developed patient, in no apparent distress. CARDIOVASCULAR: Regular rate and regular rhythm without murmurs, gallops, or rubs. RESPIRATORY: Clear to auscultation. Breath sounds equal bilaterally. No wheezes , rales, or rhonchi. GASTROINTESTINAL: Abdomen soft, non-tender, nondistended. Normal, active bowel sounds MUSCULOSKELETAL: Extremities without clubbing, cyanosis, or edema. NEURO: Alert & Oriented x4 to person, place, time, situation. Moves all ext x4 Procedures none Medications and IVs Current Medications Sodium Chloride 1,000 ml @ 70 mls/hr [id number] ONCE IV ; Start 10/07/17 at 07:45 ; Stop 10/07/17 at 22:02; Status DC Nicardipine HCl 25 mg/Sodium Chloride 250 ml @ 50 mls/hr TITRATE PRN IV Blood pressure management Last administered on 10/07/17 08:17; Start 10/07/17 at 08 :00; Stop 10/07/17 at 14:38; Status DC Acetaminophen 100 ml @ 400 mls/hr ONCE ONCE IV Last administered on 08:51; Start 10/07/17 at 08:15; Stop 10/07/17 at 08:29; Status DC Ondansetron HCl (Zofran Inj) 4 mg ONCE ONCE IV PUSH Last administered on 10/07 08:19; Start 10/07/17 at 08:15; Stop 10/07/17 at 08:16; Status DC Potassium Chloride/Sodium Chloride 1,000 ml @ 100 mls/hr Q10H IV Last administered on 10/11/17 12:42; Start 10/07/17 at 08:42; Stop 10/11/17 at 17 :54; Status DC Sodium Chloride (NS Flush) 2 ml UNSCH PRN IV FLUSH FLUSH AFTER USING IV ACCESS ; Start 10/07/17 at 08:45 Sodium Chloride (NS Flush) 2 ml BID IV FLUSH Last administered on 10/19/17 08: 31; Start 10/07/17 at 09:00 Pantoprazole Sodium (Protonix Inj) 40 mg DAILY IV PUSH Last administered on 08:39; Start 10/07/17 at 09:00; Stop 10/10/17 at 12:57; Status DC Albuterol/ Ipratropium (Duoneb Neb) 1 ampule Q2HR NEB PRN INH WHEEZING; Start 10/07/17 at 08:45 Miscellaneous Information 1 [id number] Last administered on 10/07/17 08:45; Start 10/07/17 at 08:45 Chlorhexidine Gluconate (Chlorhexidine 2% Cloth) Taper DAILY@04 TOP Last administered on 10/11/17 04:00; Start 10/08/17 at 04:00; Stop 10/04/18 at 03 :59 Chlorhexidine Gluconate (Chlorhexidine 2% Cloth) 3 pack UNSCH PRN TOP HYGIENIC CARE; Start 10/07/17 at 08:45 Senna/Docusate Sodium (Sangita-Colace) 1 tab BID PO Last administered on 08:30; Start 10/07/17 at 09:00 Magnesium Hydroxide (Milk Of Magnesia Liq) 30 ml Q12H PRN PO Mild constipation Last administered on 10/18/17 20:42; Start 10/07/17 at 08:45 Sennosides (Senokot) 17.2 mg Q12H PRN PO Moderate constipation; Start at 08:45 Bisacodyl (Dulcolax Supp) 10 mg DAILY PRN RECTAL SEVERE CONSITIPATION; Start 10/07/17 at 08:45 Lactulose (Lactulose Liq) 30 ml DAILY PRN PO SEVERE CONSITIPATION Last administered on 10/16/17 09:04; Start 10/07/17 at 08:45 Nicardipine HCl 25 mg/Sodium Chloride 250 ml @ 50 mls/hr TITRATE PRN IV Blood pressure management Last administered on 10/08/17 12:53; Start 10/07/17 at 08 :45; Stop 10/09/17 at 09:18; Status DC Labetalol HCl (Trandate Inj) 20 mg Q4H PRN IV PUSH SBP >160 Last administered on 10/14/17 10:36; Start 10/07/17 at 08:45; Stop 10/16/17 at 14:14; Status DC Potassium Chloride 100 ml @ 50 mls/hr Q2H PRN IV For Potassium 2.8 - 3.2 mEq/L ; Start 10/07/17 at 09:00; Stop 10/15/17 at 07:08; Status DC Potassium Chloride 100 ml @ 50 mls/hr Q2H PRN IV For Potassium 2.8 - 3.2 mEq/L ; Start 10/07/17 at 09:00; Stop 10/15/17 at 07:08; Status DC Potassium Bicarb/ Potassium Chloride (K-Lyte Cl Eff) 50 meq UNSCH PRN PO For Potassium 3.3 - 3.5 mEq/L; Start 10/07/17 at 09:00; Stop 10/15/17 at 07:08; Status DC Potassium Chloride 100 ml @ 25 mls/hr UNSCH PRN IV For Potassium 3.3 - 3.5 mEq /L Last administered on 10/12/17t 02:18; Start 10/07/17 at 09:00; Stop at 07:08; Status DC Potassium Chloride 100 ml @ 50 mls/hr Q2H PRN IV For Potassium 3.3 - 3.5 mEq/L ; Start 10/07/17 at 09:00; Stop 10/15/17 at 07:08; Status DC Magnesium Sulfate 4 gm/Sodium Chloride 100 ml @ 50 mls/hr UNSCH PRN IV For Magnesium 0.9 - 1.1 mg/dL; Start 10/07/17 at 09:00; Stop 10/15/17 at 07:08; Status DC Magnesium Oxide (Mag-Ox) 800 mg UNSCH PRN PO For Magnesium 1.2 - 1.6 mg/dL; Start 10/07/17 at 09:00; Stop 10/15/17 at 07:08; Status DC Magnesium Sulfate 2 gm/Sodium Chloride 100 ml @ 50 mls/hr UNSCH PRN IV For Magnesium 1.2 - 1.6 mg/dL; Start 10/07/17 at 09:00; Stop 10/15/17 at 07:08; Status DC Potassium Phosphate (K-Phos) 2,000 mg Q4H PRN PO For Phosphorus < 2.5 mg/dL; Start 10/07/17 at 09:00; Stop 10/15/17 at 07:08; Status DC Sodium Phosphate 30 mmol/Sodium Chloride 250 ml @ 42 mls/hr UNSCH PRN IV For Phosphorus < 2.5 mg/dL; Start 10/07/17 at 09:00; Stop 10/15/17 at 07:08; Status DC Potassium Phosphate (K-Phos) 2,000 mg UNSCH PRN PO/TUBE SEE LABEL COMMENTS; Start 10/07/17 at 09:00; Stop 10/15/17 at 07:08; Status DC Potassium Phosphate 30 mmol/ Sodium Chloride 260 ml @ 42 mls/hr UNSCH PRN IV SEE LABEL COMMENTS; Start 10/07/17 at 09:00; Stop 10/15/17 at 07:08; Status DC Lorazepam (Ativan Inj) 0.5 mg Q4H PRN IV PUSH Leg spasm Last administered on 23:10; Start 10/07/17 at 10:30 Iohexol (Omnipaque 350 Inj) 75 ml STK-MED ONCE IVCONTRAST Last administered on 10/07/17 13:10; Start 10/07/17 at 13:10; Stop 10/07/17 at 13:11; Status DC Ondansetron HCl (Zofran Inj) 4 mg Q6HR PRN IV PUSH nausea Last administered on 10/18/17 15:13; Start 10/07/17 at 21:15 Fentanyl Citrate (fentaNYL INJ) 25 mcg Q1H PRN IV PUSH PAIN SCALE 5 TO 10 Last administered on 10/09/17 05:37; Start 10/07/17 at 21:15; Stop 10/09/17 at 09 :18; Status DC Enalapril Maleate (Vasotec) 10 mg BID PO Last administered on 10/08/17 21:01 ; Start 10/08/17 at 12:15; Stop 10/09/17 at 09:18; Status DC Hydrochlorothiazide (Microzide) 12.5 mg DAILY PO Last administered on 09:14; Start 10/08/17 at 12:15; Stop 10/11/17 at 10:14; Status DC Oxycodone/ Acetaminophen (Percocet 7.5-325 Mg) 1 tab Q6H PRN PO pain 5-10 Last administered on 10/19/17 07:25; Start 10/08/17 at 12:15 Cephalexin Monohydrate (Keflex) 250 mg HS PO Last administered on 10/18/17 20: 39; Start 10/09/17 at 21:00 Cephalexin Monohydrate (Keflex) 250 mg ONCE ONCE PO Last administered on 10/09 13:03; Start 10/09/17 at 09:30; Stop 10/09/17 at 09:31; Status DC Enalapril Maleate (Vasotec) 20 mg BID PO Last administered on 10/19/17 08:30; Start 10/09/17 at 21:00 Hydromorphone HCl (Dilaudid Pf Inj) 1 mg Q4H PRN IV PUSH pain 6-10 Last administered on 10/09/17 10:46; Start 10/09/17 at 09:30; Stop 10/09/17 at 13 :55; Status DC Gadodiamide (Omniscan Pf Inj) 10 ml STK-MED ONCE IVCONTRAST Last administered on 10/09/17 11:11; Start 10/09/17 at 11:11; Stop 10/09/17 at 11:12; Status DC Hydromorphone HCl (Dilaudid Pf Inj) 2 mg Q4H PRN IV PUSH pain 6-10; Start at 17:30; Stop 10/09/17 at 17:30; Status DC Hydromorphone HCl (Dilaudid Pf Inj) 1.5 mg Q4H PRN IV PUSH pain 6-10 Last administered on 10/09/17 18:58; Start 10/09/17 at 17:30; Stop 10/10/17 at 12 :46; Status DC Hydralazine HCl (Apresoline Inj) 20 mg Q4H PRN IV PUSH SYS BP GREATER THAN 160 MMHG Last administered on 10/14/17 10:02; Start 10/09/17 at 17:15 Nicardipine HCl 25 mg/Sodium Chloride 250 ml @ 50 mls/hr TITRATE PRN IV Blood pressure management Last administered on 10/10/17 03:52; Start 10/09/17 at 17 :15; Stop 10/16/17 at 14:14; Status DC Carvedilol (Coreg) 6.25 mg Q12HR PO Last administered on 10/13/17 08:22; Start 10/10/17 at 12:30; Stop 10/13/17 at 11:29; Status DC Hydromorphone HCl (Dilaudid Pf Inj) 1 mg Q4H PRN IV PUSH pain 6-10 Last administered on 10/10/17 21:23; Start 10/10/17 at 13:30; Stop 10/11/17 at 10 :15; Status DC Pantoprazole Sodium (Protonix) 40 mg DAILY PO Last administered on 10/19/17 08 :30; Start 10/10/17 at 13:00 Sodium Chloride (Sodium Chloride) 1 gm Q12HR PO Last administered on 10/19/17 08:30; Start 10/11/17 at 10:15 Hydromorphone HCl (Dilaudid Pf Inj) 0.5 mg Q4H PRN IV PUSH pain 6-10 Last administered on 10/13/17 08:15; Start 10/11/17 at 13:30; Stop 10/13/17 at 11 :29; Status DC Sodium Chloride 188 meq/Sodium Chloride 1,047 ml @ 60 mls/hr [id number] IV Last administered on 10/13/17 18:33; Start 10/11/17 at 10:30; Stop 10/14/17 at 10: 32; Status DC Enoxaparin Sodium (Lovenox Inj) 40 mg Q24H SQ Last administered on 10/18/17 14 :30; Start 10/12/17 at 15:00 Metoprolol Tartrate (Lopressor) 25 mg Q12HR PO Last administered on 10/14/17 07:59; Start 10/13/17 at 11:30; Stop 10/14/17 at 10:33; Status DC Hydromorphone HCl (Dilaudid Pf Inj) 1 mg Q4H PRN IV PUSH Headache pain 6-10 Last administered on 10/16/17 09:06; Start 10/13/17 at 11:30; Stop 10/16/17 at 14:14; Status DC Hydralazine HCl (Apresoline) 100 mg Q12HR PO Last administered on 10/19/17 08: 30; Start 10/13/17 at 11:30 Guaifenesin (Mucinex Er) 600 mg BID PO Last administered on 10/19/17 08:30; Start 10/13/17 at 12:00 Promethazine HCl (Phenergan Inj) 25 mg Q6H PRN IM nausea Last administered on 10/15/17 08:56; Start 10/13/17 at 15:00 Metoprolol Tartrate (Lopressor) 50 mg Q12HR PO Last administered on 10/19/17 08:30; Start 10/14/17 at 21:00 Clonidine (Catapres) 0.1 mg Q6HR PRN PO SBP > 160; Start 10/14/17 at 12:00 Oxycodone/ Acetaminophen (Percocet 5-325 Mg) 1 tab NOW ONCE PO Last administered on 10/17/17 17:48; Start 10/17/17 at 17:30; Stop 10/17/17 at 17:31 ; Status DC A/P Problem List: (1) Right basal ganglia hemorrhage (2) Hypertensive emergency ICD Code: I16.1 - Hypertensive emergency (3) Left hemiplegia ICD Code: G81.94 - Hemiplegia, unspecified affecting left nondominant side Assessment and Plan A/P 1. Moderate Sized right basal ganglia hemorrhage 3.0 x 3.2 cm - CT of the head: moderate sixed right BG hemorrhage with mass effect on right lateral ventricle - Repeat CT of the head stable hemorrhage. CTA of the head and neck negative for aneurysm, focal stenosis at origin of Right JAYSON. No intervention needed at this time per Dr. Fitzgerald - MRI 10/09- subacute hematoma in the right posterior sylvian region 5.0 x 1.7 cm. Moderate cerebral edema. 6 mm midline shift to left - Neurosurgery Dr. Fitzgerald. Continue conservative management - PT/OT/Speech - CT of the head today due to worsening headache. 2. Hypertensive Emergency/Hypertension/Cardiac Murmur at this time controlled. -Discontinued HCTZ due to Hyponatremia, - Echo with EF 55%. - continue metoprolol,hydralazine and enalapril. 3. Recurrent UTI on Cephalexin 250 mg Daily for UTI prophylaxis. DVT prophylaxis SCD GI prophylaxis with PPI Discharge Planning dc to rehab- pending the repeated CT head today. see med list. f/u with pcp and neurology. d/w the patient. time spent 35 min. Heron Roa MD Oct 19, 2017 09:10
[2017-10-19] MEDS: ONDANSETRON HCL 4 MG/2 ML VIAL IV PUSH PRN (09:13)
--- NOTE | 2017-10-19 11:18 | RADRPT ---
EXAM DATE/TIME: 10/19/2017 10:44 [facility] COMPARISON: CT BRAIN W/O CONTRAST, October 08, 2017, 4:04. INDICATIONS : Severe cephalgia. Follow up bleed. RADIATION DOSE: 56.35 CTDIvol (mGy) MEDICAL HISTORY : Bleed SURGICAL HISTORY : None. ENCOUNTER: Initial ACUITY: 1 day PAIN SCALE: 6/10 LOCATION: Bilateral cranial TECHNIQUE: Multiple contiguous axial images were obtained of the head. Using automated exposure control and adj ustment of the mA and/or kV according to patient size, radiation dose was kept as low as reasonably a chievable to obtain optimal diagnostic quality images. DICOM format image data is available electro nically for review and comparison. FINDINGS: CEREBRUM: A large central hematoma located in the region of the right insula and basal ganglia is evolving with increasing density and less discrete margins. There is increasing surrounding edema and slight incre ase in mass effect. Right to left shift of midline structures measuring 4.5 mm is noted. Hypodense ch anges extend into the right temporal and parietal lobes and may in fact indicate areas of infarction. POSTERIOR FOSSA: The cerebellum and brainstem are intact. The 4th ventricle is midline. The cerebellopontine angle i s unremarkable. EXTRACRANIAL: The visualized portion of the orbits is intact. SKULL: The calvaria is intact. No evidence of skull fracture. CONCLUSION: 1. Evolving large central hematoma in the region of the insula and basal ganglia demonstrate decrease d density but increasing surrounding edema and mass effect. 2. Developing hypodensity peripherally within the right temporal and parietal lobes characteristic of developing infarct. A 3. No other significant change. Ludwig Dale MD on October 19, 2017 at 11:13 Board Certified Radiologist. This report was verified electronically.
--- NOTE | 2017-10-19 11:35 | HHI.PR ---
Addendum To [facility] Progress Not Reason for addendum: Additonal documentation (CT head reviewed with neurosurgery- will cancel the dc planning for now- awaiting neurosurgey f/u and recmmendations.) Heron Roa MD Oct 19, 2017 11:35
[2017-10-19 12:10] VITALS: BP 124/62; PULSE 84; RESP 16; TEMP 98.4; O2SAT 96
--- NOTE | 2017-10-19 16:45 | HHI.NSPN ---
History Chief Complaint: headaches Interval History 57-year-old female who was visiting her son in the hospital when she had an abrupt onset of left-sided hemiplegia and neglect and reportedly some twitching and shaking in the right side, but these were not related as seizures. She has a dysarthric and slurred speech and confusion along with complaints of headache. She was taken to the emergency room where she was very hypertensive with an initial blood pressure of 215/112 at one point. Her hypertension was regulated and CT scan of the head obtained that reveals a 3.2 cm right basal ganglia hemorrhage. The ventricles are small and not dilated and there is no intraventricular hemorrhage noted. She was admitted to the surgical intensive care unit for hemodynamic and neurologic monitoring. Subsequent CT angiogram of the brain as well as the carotids has also been obtained and no underlying aneurysm or vascular abnormality is noted with some areas of focal stenosis in the right anterior cerebral artery. The patient is lethargic and has also received some Ativan for shivers and shakes but is easily arousable. A detailed history is difficult to obtain from her. 10/08/17: Awake and alert. Complains of frontal headaches. Nausea but no vomiting today. Left hemiparesis pt states improved some. 10/09/17: Complains of frontal headache and nausea no vomiting. Left hemiparesis stable. 10/10/17: Pt awakens to voice. States headaches improved today. No nausea but poor po intake. Left hemiparesis. Pt back on Cardene drip. 10/11/17: Pt awakens to voice, complains of frontal headaches. Intermittent nausea. Left hemiparesis stable. 10/12/17: Pt awake. She is very frustrated and agitated this morning. Poor insight into her current condition, wants to go home. Complains of headaches. Pt off Cardene but requiring IV antihypertensives. 10/13/17: Pt awake. States she woke up with a frontal headache and nausea No paresthesias. Left hemiparesis improving. Pt was less agitated and anxious yesterday when came by. 10/14/17: Patient awake and alert. Complains of frontal headache and nausea. Stable left hemiparesis. She moves her right side well. Patient still intermittently with periods of agitation and frustration. 10/17/17: Pt awake and alert. Complains of headaches and nausea but not any worse. Left hemiparesis is improving. Pt states they are working on transfer to inpatient rehab in [place]. 10/19/17: Follow-up CT scan of the head obtained because a complains of intermittent headaches. The stable cerebral hemorrhage with surrounding areas of encephalomalacia. No hydrocephalus or any worsening midline shift noted. She is awake and alert and relates that she wants to go to rehabilitation today as all arrangements have been made. Review of Systems General: Negative for: fever, chills, insomnia Respiratory: Negative for: shortness of breath, cough, sputum Cardiovascular: Negative for: chest pain, palpitations, orthopnea Gastrointestinal: Negative for: nausea, vomitting, diarrhea, constipation Genitourinary: Negative for: urinary burning, urinary frequency, urinary urgency Exam Results Vital Signs Date Time Temp Pulse Resp B/P (MAP) Pulse Ox O2 Delivery O2 Flow Rate FiO2 10/19/17 12:10 98.4 84 16 124/62 (82) 96 Physical Examination General: Pt resting comfortably in bed in NAD. Eyes: Pupils equal. Sclera anicteric. Resp: CTA bilaterally Heart: NSR no murmurs Abd: Soft positive bs Skin: No cyanosis or erythema Muscle: Left hemiparesis, improving but still weak 4-/5 LUE 4/5 LLE. Moves right side well 5/5. Neuro: Pt awake and alert. Pupils 3mm bilaterally reactive bilaterally. Left facial paresis improving. Follows simple commands. Speech clear and appropriate. Lab, Micro, Other Results Last Impressions Head CT 10/19/17 0000 Signed Impressions: Service Date/Time: Thursday, October 19, 2017 10:44 - CONCLUSION: 1. Evolving large central hematoma in the region of the insula and basal ganglia demonstrate decreased density but increasing surrounding edema and mass effect. 2. Developing hypodensity peripherally within the right temporal and parietal lobes characteristic of developing infarct. A 3. No other significant change. Ludwig Dale MD Brain MRI 10/09/17 0000 Signed Impressions: Service Date/Time: Monday, October 09, 2017 10:58 - CONCLUSION: Large right posterior sylvian hematoma with evidence of both methemoglobin and deoxyhemoglobin. No focal abnormal areas of enhancement. Slight increase in midline shift towards the left, now measuring 6 mm (previously measured 4 mm). Aamir Diallo MD Neck CTA 10/07/17 0000 Signed Impressions: Service Date/Time: Saturday, October 07, 2017 12:57 - CONCLUSION: Normal examination. Bovine origin of the great vessels. Vic Serna MD Head CTA 10/07/17 0000 Signed Impressions: Service Date/Time: Saturday, October 07, 2017 12:57 - CONCLUSION: Somewhat unusual anatomy involving the right internal carotid bifurcation. 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 No evidence of aneurysm or etiology for subarachnoid hemorrhage is seen. Vic Serna MD Medical Decision Making Impression and Plan Right basal ganglia hemorrhage consistent with a hypertensive bleed with a CT angiogram not revealing any underlying vascular abnormality. Follow-up CT scan with anticipated hematoma evolutionary changes. She continues to improve neurologically and is awake and alert and interactive with improving left hemiparesis. Hypertension is well regulated. She is cleared for transfer to rehabilitation facility from neurosurgical standpoint. Alejandro Fitzgerald MD Oct 19, 2017 16:45
== END 2017-10-19 14:53 | DRG 64 ==
LOC: NEPC 07:39 → NEDA 08:46 → N03B 10:08 → N05A 10-14 18:47
PROVIDERS: ADMIT Internal Medicine; ATTEND Internal Medicine
DX: I61.0 Nontraumatic intracerebral hemorrhage in hemisphere, subcortical (principal); G93.6 Cerebral edema; G81.04 Flaccid hemiplegia affecting left nondominant side; E87.1 Hypo-osmolality and hyponatremia; I16.1 Hypertensive emergency; I10 Essential (primary) hypertension; R25.3 Fasciculation; R29.716 NIHSS score 16; R47.1 Dysarthria and anarthria; I08.1 Rheumatic disorders of both mitral and tricuspid valves; R00.0 Tachycardia, unspecified; Z79.899 Other long term (current) drug therapy; Z87.440 Personal history of urinary (tract) infections
CPT/HCPCS: 51702; 70450; 70496; 70498; 70553; 80048; 80053; 80307; 81001; 82435; 82550; 82565; 82947; 83735; 84100; 84132; 84295; 84443; 84484; 84520; 84702; 85025; 85384; 85610; 85730; 86850; 86900; 86901; 93005; 93306; 96365; 96375; J1170; A9579; C9113; J0131; J0360; J1650; J2060; J2405; J2550; J3010; J3480; J7030; J7050; Q9967